=== PATIENT | male | born 1940 | race Caucasian/White ===

== ENCOUNTER 2019-04-17 14:45 | Emergency (ER) | payer MEDICARE ==
--- OUTSIDE RECORDS SUMMARY | 2019-04-17 14:48 | XMS REPORT ---
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) Problem Trouble swallowing R13.10 Active Problem Status post surgery Z98.890 Active Problem Chronic bronchitis, unspecified J42 Active chronic bronchitis type Problem Tear of left rotator cuff, M75.102 Active unspecified tear extent Problem COPD exacerbation J44.1 Active Assessment Chronic bronchitis, unspecified J42 Active chronic bronchitis type Assessment Allergic rhinitis, unspecified J30.9 Active seasonality, unspecified trigger Problem Chronic obstructive pulmonary J44.9 Active disease, unspecified COPD type Assessment Cardiac pacemaker Z95.0 Active Problem GERD without esophagitis K21.9 Active Problem Bilateral swelling of feet M79.89 Active Problem 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) Problem COPD with acute exacerbation J44.1 Active Problem Cardiac pacemaker Z95.0 Active Assessment Left shoulder pain, unspecified M25.512 Active chronicity Assessment Atrial fibrillation, chronic I48.2 Active Problem Colon polyp K63.5 Active Problem Basal cell carcinoma C44.91 Active Problem Atrial fibrillation, chronic I48.2 Active Problem Encounter for therapeutic drug Z51.81 Active level monitoring Medications Medication Code Code Instructions Start End Status Dosage System Date Date Nasacort AQ NDC 0 55 MCG/ACT Active 1 puff in Nasally Once a each day nostril Perforomist [facility] [id number] 20 MCG/2ML Active 2 ml Inhalation Twice a day Coumadin ND [id number] 5 MG Orally Active 1 tablet Once a day Levobunolol HCl [facility] [id number] 0.5 % Active 1 drop into Ophthalmic Once affected a day eye Levalbuterol HCl [facility] [id number] 1.25 MG/3ML Active 3 ml Inhalation every 8 hrs Spiriva Respimat [facility] [id number] 2.5 microgram Active 2 puffs Inhaled Once a day Pulmicort [facility] [id number] 0.25 MG/2ML Active 2 ml Inhalation Once a day Singulair [facility] [id number] 10 MG Orally Active 1 tablet in Once a day the evening Results No Known Results Summary Purpose eClinicalWorks Submission
[2019-04-17] MEDS ORDERED: NA CHLORIDE 0.9% 500 ML ONE (15:50)
[2019-04-17 16:04] LABS: Absolute Lymphocytes (CBC) 1.4 K/uL (0.7-4.9); Basophils % 0.5 % (0-1.3); Hematocrit 42.4 % (39.6-49.0); Lymphocytes % 26.6 % (15.3-44.8); MPV 9.6 fL (7.6-11.3)
[2019-04-17 16:20] LABS: Albumin 3.1 g/dL (3.4-5.0); Bilirubin Direct 0.1 mg/dL (0-0.2); Bilirubin Total 0.5 mg/dL (0.2-1.0); Potassium 3.7 mmol/L (3.5-5.1); Protein, Total 6.3 g/dL (6.4-8.2)
--- NOTE | 2019-04-17 17:08 | RAD REPORT ---
EXAM DESCRIPTION: CTAbdomen Pelvis W Contrast - 04/17/2019 4:54 pm CLINICAL HISTORY: Abdominal pain. ABD PAIN COMPARISON: Abdomen Pelvis W Contrast dated 06/07/2017 TECHNIQUE: Biphasic CT imaging of the abdomen and pelvis was performed with 100 ml non-ionic IV cont rast. All CT scans are performed using dose optimization technique as appropriate and may include automated exposure control or mA/KV adjustment according to patient size. FINDINGS: Postsurgical changes are present involving the right hemidiaphragm compatible with repair of the previously noted hernia in the region. The liver demonstrates no focal mass or biliary dilatation. Cholecystectomy clips. The spleen, pancre as, adrenal glands kidneys are within normal limits. No bowel obstruction, free air, free fluid or abscess. 20 mm area of epiploic appendagitis is seen in the right upper quadrant adjacent to the hepatic flexure. The appendix is not identified as a discre te structure, however, no secondary findings of appendicitis are identified. Sigmoid diverticulosis coli is present without diverticulitis. No evidence of significant lymphadenopathy. No suspicious bony findings. IMPRESSION: 20 mm area of epiploic appendagitis is noted in the right upper quadrant anteriorly. Sigmoid diverticulosis coli without diverticulitis. The appendix is not identified as a discrete structure, however, no secondary findings of appendicit is are identified.
[2019-04-17] MEDS ORDERED: ONDANSETRON 4 MG/2 ML VIAL ONE (17:49)
[2019-04-17] MEDS ORDERED: FENTANYL CITR 100 MCG/2 ML ONE (17:49)
--- NOTE | 2019-04-17 18:35 | ER ---
Nurse's Notes [facility] Name: Bharat Bauman Age: 78 yrs Sex: Male : 1940 Arrival Date: 04/17/2019 Time: 14:48 Bed 24 Private MD: Bennett Alexander Diagnosis: Appendagitis;Abdominal and pelvic pain Presentation: 04/17 15:22 Presenting complaint: Patient states: RLQ pain since Monday, sharp, hx of umbilical iw hernia repair with mesh in October by Dr. Perez, had one loose stool today, pain 01/31. Transition of care: patient was not received from another setting of care. Onset of symptoms was April 14, 2019. Risk Assessment: Do you want to hurt yourself or someone else? Patient reports no desire to harm self or others. Initial Sepsis Screen: Does the patient meet any 2 criteria? No. Patient's initial sepsis screen is negative. Does the patient have a suspected source of infection? No. Patient's initial sepsis screen is negative. Care prior to arrival: None. 15:22 Method Of Arrival: Ambulatory iw 15:22 Acuity: MELANIE 3 iw Historical: - Allergies: 15:26 Morphine; iw - Home Meds: 15:30 Warfarin Oral [Active]; Perforomist 20 mcg/2 mL inhalation nebu 2 mL 2 times per day iw [Active]; Spiriva with HandiHaler 18 mcg inhalation CpDv 1 cap once daily [Active]; montelukast oral oral [Active]; - PMHx: 15:26 Hypertension; Pacemaker; CVA; iw 15:30 Atrial Fib; COPD; iw - PSHx: 15:26 Cholecystectomy; Hernia repair; iw - Immunization history:: Adult Immunizations up to date. - Social history:: Smoking status: Patient/guardian denies using tobacco. - Ebola Screening: : Patient negative for fever greater than or equal to 101.5 degrees Fahrenheit, and additional compatible Ebola Virus Disease symptoms Patient denies exposure to infectious person Patient denies travel to an Ebola-affected area in the 21 days before illness onset No symptoms or risks identified at this time. Screenin:45 Abuse screen: Denies threats or abuse. Nutritional screening: No deficits noted. tr5 Tuberculosis screening: No symptoms or risk factors identified. Fall Risk None identified. Assessment: 15:45 General: Appears uncomfortable, Behavior is calm, cooperative, appropriate for age. tr5 General: Reports feeling ill for. Pain: Complains of pain in right upper quadrant and right lower quadrant. Neuro: Level of Consciousness is awake, alert, obeys commands, Oriented to person, place, time, Sports Physiologist are equal bilaterally Moves all extremities. Cardiovascular: Heart tones present Capillary refill < 3 seconds. Respiratory: Airway is patent Respiratory effort is even, unlabored, Respiratory pattern is regular, symmetrical. GI: Abdomen is flat, Bowel sounds present X 4 quads. Abd is soft and non tender Reports upper abdominal pain, cramping. GI: Reports lower abdominal pain. : No signs and/or symptoms were reported regarding the genitourinary system. EENT: No signs and/or symptoms were reported regarding the EENT system. Derm: No signs and/or symptoms reported regarding the dermatologic system. Musculoskeletal: No signs and/or symptoms reported regarding the musculoskeletal system. Vital Signs: 15:26 BP 122 / 68; Pulse 75; Resp 16; Temp 97.9; Pulse Ox 97% on R/A; Weight 77.11 kg; Height iw 5 ft. 11 in. (180.34 cm); Pain 10/10; 15:26 Body Mass Index 23.71 (77.11 kg, 180.34 cm) iw ED Course: 14:48 Patient arrived in ED. mr 14:48 Bennett Alexander DO is Private Physician. mr 14:54 Alexys Ibarra MD is Attending Physician. kdr 15:14 Chaka Kim, RN is Primary Nurse. tr5 15:24 Triage completed. iw 15:26 Arm band placed on. iw 15:45 Bed in low position. Call light in reach. Side rails up X 1. tr5 15:50 Initial lab(s) drawn, by me, sent to lab. Inserted saline lock: 20 gauge in right dh3 antecubital area, using aseptic technique. Blood collected. 15:58 Radiology exam delayed due to lab results not completed at this time. (BUN/Creatinine). vm2 16:55 CT Abd/Pelvis - IV Contrast Only In Process Unspecified. EDMS 18:32 Bennett Alexander DO is Referral Physician. kdr 19:03 No provider procedures requiring assistance completed. IV discontinued. tr5 Administered Medications: 15:50 Drug: NS 0.9% 500 ml Route: IV; Rate: bolus; Site: right antecubital; tr5 17:50 Drug: fentaNYL (PF) 50 mcg {Note: RASS:0.} Route: IVP; Site: right antecubital; tr5 19:02 Follow up: Response: Pain is decreased tr5 17:50 Drug: Zofran 4 mg Route: IVP; Site: right antecubital; tr5 19:03 Follow up: Response: Nausea is decreased tr5 19:02 Drug: Motrin 600 mg Route: PO; tr5 19:03 Follow up: Response: No adverse reaction tr5 Outcome: 18:34 Discharge ordered by . kdr 19:03 Discharged to home via wheelchair, with family. tr5 19:03 Condition: stable 19:03 Discharge instructions given to patient, family, friend, Instructed on discharge instructions, follow up and referral plans. medication usage, Demonstrated understanding of instructions, follow-up care, medications. 19:05 Patient left the ED. tr5 Signatures: Dispatcher [employer] EDMS Alexys Ibarra MD MD kdr Rivera, Mary mr Williams, Irene, RN RN [facility] Codi Corrales 3 Chaka Kim RN RN tr5
--- NOTE | 2019-04-17 18:35 | EDPHYS ---
Physician Documentation [facility] Name: Bharat Bauman Age: 78 yrs Sex: Male : 1940 Arrival Date: 04/17/2019 Time: 14:48 Bed 24 Private MD: Bennett Alexander ED Physician Alexys Ibarra HPI: 04/17 15:41 This 78 yrs old Male presents to ER via Ambulatory with complaints of kdr Abdominal Pain. 15:41 The patient presents with abdominal pain in the right upper quadrant, right lower kdr quadrant. Onset: The symptoms/episode began/occurred gradually, 4 day(s) ago. The symptoms do not radiate. Associated signs and symptoms: Pertinent positives: nausea, Pertinent negatives: chest pain, constipation, diarrhea, dysuria, fever, headache, hematuria, palpitations, shortness of breath, testicular pain, vomiting, vomiting blood. The symptoms are described as achy, constant, steady, vague, waxing/waning. Modifying factors: The symptoms are alleviated by remaining still, the symptoms are aggravated by breathing deeply, movement, touching the area, walking, Sitting up. Severity of pain: At its worst the pain was very mild in the emergency department the pain is unchanged. The patient has experienced similar episodes in the past. The patient has not recently seen a physician. Historical: - Allergies: 15:26 Morphine; iw - Home Meds: 15:30 Warfarin Oral [Active]; Perforomist 20 mcg/2 mL inhalation nebu 2 mL 2 times per day iw [Active]; Spiriva with HandiHaler 18 mcg inhalation CpDv 1 cap once daily [Active]; montelukast oral oral [Active]; - PMHx: 15:26 Hypertension; Pacemaker; CVA; iw 15:30 Atrial Fib; COPD; iw - PSHx: 15:26 Cholecystectomy; Hernia repair; iw - Immunization history:: Adult Immunizations up to date. - Social history:: Smoking status: Patient/guardian denies using tobacco. - Ebola Screening: : Patient negative for fever greater than or equal to 101.5 degrees Fahrenheit, and additional compatible Ebola Virus Disease symptoms Patient denies exposure to infectious person Patient denies travel to an Ebola-affected area in the 21 days before illness onset No symptoms or risks identified at this time. ROS: 15:41 Constitutional: Negative for fever, chills, and weight loss, Eyes: Negative for injury, kdr pain, redness, and discharge, ENT: Negative for injury, pain, and discharge, Neck: Negative for injury, pain, and swelling, Cardiovascular: Negative for chest pain, palpitations, and edema, Respiratory: Negative for shortness of breath, cough, wheezing, and pleuritic chest pain, Back: Negative for injury and pain, : Negative for injury, bleeding, discharge, and swelling, MS/Extremity: Negative for injury and deformity, Skin: Negative for injury, rash, and discoloration, Neuro: Negative for headache, weakness, numbness, tingling, and seizure activity. Psych: Negative for depression, anxiety, suicide ideation, homicidal ideation, and hallucinations, Allergy/Immunology: Negative for hives, rash, and allergies, Endocrine: Negative for neck swelling, polydipsia, polyuria, polyphagia, and marked weight changes, Hematologic/Lymphatic: Negative for swollen nodes, abnormal bleeding, and unusual bruising. 15:41 Abdomen/GI: Positive for abdominal pain, nausea, Negative for constipation, abdominal cramps, abdominal distension, anorexia, dysphagia, hematemesis, black/tarry stool, rectal pain, rectal bleeding, bowel incontinence, flatulence. Exam: 15:41 Constitutional: This is a well developed, well nourished patient who is awake, alert, kdr and in no acute distress. Head/Face: Normocephalic, atraumatic. Eyes: Pupils equal round and reactive to light, extra-ocular motions intact. Lids and lashes normal. Conjunctiva and sclera are non-icteric and not injected. Cornea within normal limits. Periorbital areas with no swelling, redness, or edema. Neck: Trachea midline, no thyromegaly or masses palpated, and no cervical lymphadenopathy. Supple, full range of motion without nuchal rigidity, or vertebral point tenderness. No Meningismus. Chest/axilla: Normal chest wall appearance and motion. Nontender with no deformity. No lesions are appreciated. Cardiovascular: Regular rate and rhythm with a normal S1 and S2. No gallops, murmurs, or rubs. Normal PMI, no JVD. No pulse deficits. Respiratory: Lungs have equal breath sounds bilaterally, clear to auscultation and percussion. No rales, rhonchi or wheezes noted. No increased work of breathing, no retractions or nasal flaring. Back: No spinal tenderness. No costovertebral tenderness. Full range of motion. Skin: Warm, dry with normal turgor. Normal color with no rashes, no lesions, and no evidence of cellulitis. MS/ Extremity: Pulses equal, no cyanosis. Neurovascular intact. Full, normal range of motion. Neuro: Awake and alert, GCS 15, oriented to person, place, time, and situation. Cranial nerves II-XII grossly intact. Motor strength 5/5 in all extremities. Sensory grossly intact. Cerebellar exam normal. Normal gait. Psych: Awake, alert, with orientation to person, place and time. Behavior, mood, and affect are within normal limits. 15:41 Abdomen/GI: Inspection: obese Bowel sounds: active, diminished, in all quadrants, Palpation: soft, mild abdominal tenderness, in the anterior aspect of right lateral abdomen, right upper quadrant and right lower quadrant, Indicators: McBurney's point is tender. Vital Signs: 15:26 BP 122 / 68; Pulse 75; Resp 16; Temp 97.9; Pulse Ox 97% on R/A; Weight 77.11 kg; Height iw 5 ft. 11 in. (180.34 cm); Pain 10/10; 15:26 Body Mass Index 23.71 (77.11 kg, 180.34 cm) iw MDM: 15:41 Data reviewed: vital signs, nurses notes, lab test result(s), radiologic studies. kdr 17:18 ED course: It is noted that the nursing charting indicates 10/10 pain however, on my kdr exam and interaction. His pain is mild at worst and when given the option for pain medication, he declined.. 18:34 Patient medically screened. [facility] 04/17 15:34 Order name: Basic Metabolic Panel; Complete Time: 17:13 [facility] 04/17 15:34 Order name: CBC with Diff; Complete Time: 17:13 [facility] 04/17 15:34 Order name: Creatinine for Radiology; Complete Time: 17:13 [facility] 04/17 15:34 Order name: Hepatic Function; Complete Time: 17:13 [facility] 04/17 15:34 Order name: Lipase; Complete Time: 17:13 [facility] 04/17 15:34 Order name: CT Abd/Pelvis - IV Contrast Only; Complete Time: 17:13 [facility] 04/17 15:34 Order name: IV Saline Lock; Complete Time: 15:48 kdr 04/17 15:34 Order name: Labs collected and sent; Complete Time: 15:48 kdr Administered Medications: 15:50 Drug: NS 0.9% 500 ml Route: IV; Rate: bolus; Site: right antecubital; tr5 17:50 Drug: fentaNYL (PF) 50 mcg {Note: RASS:0.} Route: IVP; Site: right antecubital; tr5 19:02 Follow up: Response: Pain is decreased tr5 17:50 Drug: Zofran 4 mg Route: IVP; Site: right antecubital; tr5 19:03 Follow up: Response: Nausea is decreased tr5 19:02 Drug: Motrin 600 mg Route: PO; tr5 19:03 Follow up: Response: No adverse reaction tr5 Disposition: 04/17/19 18:34 Discharged to Home. Impression: Appendagitis, Abdominal and pelvic pain. - Condition is Stable. - Prescriptions for Ibuprofen 600 mg Oral Tablet - take 1 tablet by ORAL route every 6 hours As needed take with food; 30 tablet. Zofran 4 mg Oral Tablet - take 1 tablet by ORAL route every 4-6 hours As needed; 16 tablet. Tramadol 50 mg Oral Tablet - take 1 tablet by ORAL route every 8 hours as needed; 18 tablet. - Medication Reconciliation Form, Thank You Letter, Prescription Opioid Use form. - Follow up: Bennett Alexander DO; When: 2 - 3 days; Reason: Wound Recheck, Recheck today's complaints, Continuance of care, Re-evaluation by your physician. - Problem is new. - Symptoms have improved. Signatures: Dispatcher [employer] EDMS Alexys Ibarra MD MD kdr Rubi Marte RN RN iw Chaka Kim RN RN tr5 Corrections: (The following items were deleted from the chart) 18:35 18:34 04/17/2019 18:34 Discharged to Home. Impression: Appendagitis. Condition is kdr Stable. Forms are Medication Reconciliation Form, Thank You Letter, Antibiotic Education, Prescription Opioid Use. Follow up: Bennett Alexander; When: 2 - 3 days; Reason: Wound Recheck, Recheck today's complaints, Continuance of care, Re-evaluation by your physician. Problem is new. Symptoms have improved. kdr 19:05 18:35 04/17/2019 18:34 Discharged to Home. Impression: Appendagitis; Abdominal and tr5 pelvic pain. Condition is Stable. Forms are Medication Reconciliation Form, Thank You Letter, Antibiotic Education, Prescription Opioid Use. Follow up: Bennett Alexander; When: 2 - 3 days; Reason: Wound Recheck, Recheck today's complaints, Continuance of care, Re-evaluation by your physician. Problem is new. Symptoms have improved. kdr
[2019-04-17] MEDS ORDERED: IBUPROFEN 200 MG TAB PO ONE (18:50)
[2019-04-17] MEDS ORDERED: IBUPROFEN 400 MG TAB ONE (18:51)
[2019-04-17 19:59] VITALS: BP 122/68; TEMP 97.9; O2SAT 97
== END 2019-04-17 19:05 | disposition home or self-care (01) ==
LOC: ER 14:45
DX: K63.89 Other specified diseases of intestine (principal); R10.2 Pelvic and perineal pain; I10 Essential (primary) hypertension; Z95.0 Presence of cardiac pacemaker; I63.9 Cerebral infarction, unspecified; J44.9 Chronic obstructive pulmonary disease, unspecified
CPT/HCPCS: 85025; 80048; 36415; 80076; 83690; 74177; 96375; 96374; 99284; Q9967; J3010; J7040; J2405

== ENCOUNTER 2020-01-18 14:36 | Emergency (ER) | payer OTHER ==
--- OUTSIDE RECORDS SUMMARY | 2020-01-18 14:38 | XMS REPORT | Continuity of Care Document ---
:1940 Author Organization [facility] t Address [address] [place] [address] Care Team Providers Name Role Phone Bryan Alexander DO Primary Care Physician Subha Nesbitt MA Attending Clinician Unavailable KYUNG Attending Clinician Unavailable Yue LONGORIA Attending Clinician Unavailable Bryan Alexander DO Attending Clinician Payers Payer Name Policy Type Policy Effective Date Expiration Date Sour ce Number HUMANA [id number] 2019 [place] MEDICAREHUMANA [facility] 00:00:00 Method ist GOLD PLUS [id number] /2020-PresentHMO Problems Condition Condition Condition Status Onset Resolution Last Treating Co mments Source Name Details Category Date Date Treatment Clinician Date Chronic Chronic Disease Active [place] atrial atrial 10-28 Methodi fibrillati fibrillati 00:00: st on on 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 [facility] disease disease 00:00: st 00 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 0-01 Me thodi n n 00:00: st 00 S/P S/P Disease Active [place] Laparoscop Laparoscop 2-15 Me thodi ic ic 00:00: st reduction reduction 00 and repair and repair of of Morgagni Morgagni hernia hernia Acidosis, Acidosis, Disease Active [facility] st[facility] metabolic, metabolic, 2-15 Me thodi with with 00:00: st respirator respirator 00 y acidosis y acidosis Acute Acute Disease Active [facility] pulmonary pulmonary 2-15 Meth yajaira insufficie insufficie 00:00: st ncy ncy 00 Subcutaneo Subcutaneo Disease Active H patti us us 2-15 [facility] emphysema emphysema 00:00: st after after 00 procedure procedure Hyperglyce Hyperglyce Disease Active H patti fred fred 2-15 Methodi 00:00: st 00 Postoperat Postoperat Disease Active H patti jd anemia jd anemia 2-15 Me thodi due to due to 00:00: st acute acute 00 blood loss blood loss Thrombocyt Thrombocyt Disease [facility] open[facility] due openia due 2-15 Me thodi to blood to blood 00:00: st loss loss 00 Atrial Atrial Disease Active [place] fibrillati fibrillati 2-15 Me thodi on on 00:00: st 00 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 Meth yajaira 00:00: automatic st 00 ally from request for surgery [id number] 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) 00:00: st 00 Basal cell Basal cell Problem Active [facility] carcinoma carcinoma [facility] Cardiac Cardiac Problem Active [facility] pacemaker pacemaker [facility] Hearing Hearing Problem Active [facility] loss loss [facility] Bilateral Bilateral Problem Active [facility] swelling swelling [facility] Status Status Problem Active [facility] post post [facility] - surgery surgery [facility] ent Clinics GERD GERD Problem Active [facility] without without [facility] - esophagiti esophagiti Me moria s s l [facility] Chronic Chronic Problem Active [facility] bronchitis bronchitis Radha kes - , , Memoria unspecifie unspecifie l d chronic d chronic Outp ati bronchitis bronchitis en t type type Clinics Trouble Trouble Problem Active [facility] swallowing swallowing Radha kes - Memoria l Outpati ent Clinics Allergic Allergic Problem Active [facility] rhinitis, rhinitis, Luke s - unspecifie unspecifie Me moria d d l seasonalit seasonalit Ou tpati y, y, ent unspecifie unspecifie Cl inics d trigger d trigger Atrial Atrial Problem Active [facility] fibrillati fibrillati Radha kes - on, on, Memoria chronic chronic l Outpati ent Clinics Encounter Encounter Problem Active [facility] for for [facility] - therapeuti therapeuti Me moria c drug c drug l level level Outpati monitoring monitoring en t Clinics Colon Colon Problem Active [facility] polyp polyp [facility] COPD COPD Problem Active [facility] exacerbati exacerbati Radha kes - on on Memoria l Outpati ent Clinics Right-side Right-side Diagnosis Active [facility] d d [facility] - cerebrovas cerebrovas Me moria cular cular l accident accident Outpat i (CVA) (CVA) ent Clinics Tear of Tear of Problem Active [facility] left left [facility] - rotator rotator Memoria cuff, cuff, l unspecifie unspecifie Ou tpati d tear d tear ent extent extent Clinics Chronic Chronic Problem Active [facility] obstructiv obstructiv Radha kes - e e Memoria pulmonary pulmonary l disease, disease, Outpat i unspecifie unspecifie en t d COPD d COPD Clinics type type Diverticul Diverticul Problem Active [facility] osis of osis of [facility]ukes - sigmoid sigmoid Memoria colon colon l Outpati ent Clinics Allergies, Adverse Reactions, Alerts Allergy Allergy Status Severity Reaction(s) Onset Inactive Treating Comm ents Source Name Type Date Date Clinician Morphine Propensi Active Other (See Change Brooks vivas ty to Comments) 04-28 his Methodi adverse 00:00: personali st reaction 00 ty s to drug Morphine Adverse Active Info Not [facility] Sulfate Reaction Available [facility] Family History Family Member Diagnosis Comments Start Date Stop Date Source Natural mother Heart attack Rodolfo Mcduffie Natural sister Liver cancer Rodolfo Mcduffie Social History Social Habit Start Date Stop Date Quantity Comments Source History of tobacco Current smoker Brooks Mcduffie use Sex Assigned At [facility] ethodist Cigarettes smoked 2018-01-25 2018-01-25 Rodolfo Mcduffie current (pack per 00:00:00 00:00:00 day) - Reported Cigarette 2018-01-25 2018-01-25 Rodolfo Pozo ist pack-years 00:00:00 00:00:00 Tobacco use and 2018-01-25 2018-01-25 Former user Rodolfo Mcduffie exposure 00:00:00 00:00:00 Alcohol intake 2018-01-25 2018-01-25 Current Rodolfo Jesus thodist 00:00:00 00:00:00 non-drinker of alcohol (finding) Smoking Status Start Date Stop Date Source Former smoker 2018-01-25 00:00:00 2018-01-25 00:00:00 Rodolfo Mcduffie Medications Ordered Filled Start Stop Current Ordering Indication Dosage Frequency Signature Comments Components Source Medication Medication Date Date Medication? Clinician (SIG) Name Name formoterol 2020-0 Yes 20ug Q.5D Take 20 [place] fumarate 7-07 mcg by [facility] (PERFOROMIS 11:08: nebulizati st T) 20 mcg/2 55 on 2 (two) mL times a nebulizer day. solution montelukast 2020-0 Yes 10mg QD Take 10 mg [facility] (SINGULAIR) 7-07 by mouth Meth yajaira 10 mg 11:08: nightly. st tablet 55 levalbutero 2020-0 Yes 1{puff} Q4H Inhale 1-2 [facility] l (XOPENEX 7-07 puffs Methodi HFA) 45 11:08: every 4 st mcg/actuati 55 (four) on inhaler hours as needed for wheezing. budesonide 2020-0 Yes .5mg Q.5D Take 0.5 [facility] (PULMICORT) 7-07 mg by Methodi 0.5 mg/2 mL 11:08: nebulizati st nebulizer 55 on 2 (two) solution times a day. warfarin 2020-0 Yes 5mg QD Take 5 mg [place] (COUMADIN) 7-07 by mouth Metho di 5 MG tablet 11:08: daily. st 55 Take 1 tablet (5mg) by mouth daily for 30 days. hydrocortis 2018-0 2020- No [id number] Apply [place] one 1 % 2-20 07-07 [id number] topically Methodi cream 00:00: 00:00 3D 3 (three) st 00 :00 times a day. Apply to back and affected areas SPIRIVA 2018-0 Yes 2{puff} QD Inhale 2 [facility] RESPIMAT 2-07 puffs Methodi 2.5 00:00: daily. st mcg/actuati 00 on mist gatifloxaci 2020- No 1[drp] Q.5D Administer Rodolfo boyle (ZYMAXID) 05-25 1 drop to Me thodi 0.5 % drops 00:00: 00:[address] 00 :00 eye 2 (two) times a day. Nasacort AQ Nasacort AQ Yes Bennett [address] [facility] each [facility] - nostril [facility] Spiriva Spiriva Yes Bennett [address] Respimat Respimat [facility] Perforomist Perforomist Yes Bennett [address] [facility] Coumadin Coumadin Yes Bennett [address] [facility] Pulmicort Pulmicort Yes Bennett [address] Singulair Singulair Yes Bennett [address] [facility] Alexander in the [facility] - evening [facility] Levalbutero Levalbutero Yes Bennett [address] l HCl l HCl [facility] Levobunolol Levobunolol Yes Bennett [address] HCl HCl Alexander into [facility] - affected [facility]oria eye l [facility] Vital Signs Vital Name Observation Time Observation Value Comments Source Body height 2019-10-29 11:08:00 180.3 cm Rodolfo Mcduffie Body weight 2019-10-29 11:08:00 74.844 kg Rodolfo Mcduffie BMI 2019-10-29 11:08:00 23.01 kg/m2 Rodolfo Mcduffie Procedures Procedure Date / Time Performed Performing Clinician Sour e PROTHROMBIN TIME WITH 2020-01-10 00:00:00 Provider, Historical Tim Mcduffie INR PROTHROMBIN TIME WITH 2019-12-19 00:00:00 Provider, Historical Tim Mcduffie INR PROTHROMBIN TIME WITH 2019-12-03 00:00:00 Provider, Historical Tim Mcduffie INR US CAROTID DUPLEX 2019-11-19 13:50:00 Marilyn Mejias Ma thodist BILATERAL CV STRESS TEST NUCLEAR 2019-11-07 14:48:52 Marilyn Mejias on [facility] CARDIO NM MYOCARDIAL PERFUSION 2019-11-07 14:48:52 Marilyn Mejias [facility] REST STRESS 1 DAY TTE COMPLETE, W 2019-10-31 11:08:44 Marilyn Mejias odken CONTRAST, W DOPPLER ([id number]) ECG 12-LEAD 2019-10-29 10:06:50 Marilyn Mejias Meth odist Plan of Care Planned Activity Planned Date Details Comments Source Future Scheduled 2019-11-23 INFLUENZA VACCINE [place] [facility] 00:00:00 [code = INFLUENZA VACCINE] Future Scheduled 1990 SHINGLES VACCINES [place] [facility] 00:00:00 (#1) [code = SHINGLES VACCINES (#1)] Encounters Start End Encounter Admission Attending Care Care Encounter Source Date/Time Date/Time Type Type Clinicians Facility Department ID 2019-11-19 2019-11-19 Outpatient KYUNG [facility] [id number] [place] 00:00:00 00:00:00 MARILYN [address] 2019-11-05 2019-11-05 [facility] [id number] [place] 00:00:00 00:00:00 MARILYN [address] 2019-10-31 2019-10-31 [facility] [id number] [place] 00:00:00 00:00:00 MARILYN [address] 2019-10-29 2019-10-29 [facility] [id number] [place] 00:00:00 00:00:00 MARILYN [address] 2019-10-07 2019-10-07 [facility] [id number] [address] 13:15:00 13:15:00 t [place] [facility] Medicine l Medicine Outpati ent Clinics 2019-07-24 2019-07-24 [facility] [id number] [address] 10:45:00 10:45:00 t [place] [facility] Medicine l Medicine Outpati ent Clinics 2019-07-17 2019-07-17 [facility] [id number] 16:30:00 16:30:00 t [place] [facility] Medicine Outpati ent Clinics 2019-06-17 2019-06-17 [facility] [id number] 09:00:00 09:00:00 [place] [employer] - [facility] Medicine Outpati ent Clinics 2019-06-03 2019-06-03 [facility] [id number] 10:47:00 10:47:00 t [place] [employer] - Drive [facility] Medicine Outpati ent Clinics 2019-05-17 2019-05-17 [facility] [id number] 12:43:00 12:43:00 t [place] [employer] - Drive [facility] Medicine Outpati ent Clinics 2019-05-03 2019-05-03 [facility] [id number] 13:11:00 13:11:00 t [employer] s - Drive [facility] Medicine Outpati ent Clinics 2019-04-25 2019-04-25 [facility] [id number] 08:45:00 08:45:00 t [place] [email or web address] [facility] Medicine Outpati ent Clinics 2019-01-22 2019-01-22 [facility] [id number] 10:45:00 10:45:00 t [place] [employer] - [facility] Medicine Outpati ent Clinics 2019-01-16 2019-01-16 [facility] [id number] 11:54:00 11:54:00 [place] [employer] [address] [facility] Medicine Outpati ent Clinics 2018-11-05 2018-11-05 [facility] [id number] 10:30:00 10:30:00 t [place] [employer] - Drive [facility] Medicine Outpati ent Clinics 2018-06-18 2018-06-18 [facility] [id number] 10:30:00 10:30:00 t Bone Bone and [facility] - and [facility] ent Clinics 2018-06-01 2018-06-01 [facility] [id number] 09:30:00 09:30:[address] Luke s - Drive [facility] Medicine l Medicine Outpati ent Clinics 2018-05-21 2018-05-21 [facility] [id number] 10:32:00 10:32:[address] Luke s - Drive [facility] Medicine l Medicine Outpati ent Clinics 2018-04-26 2018-04-26 [facility] [id number] 16:35:00 16:35:[address] Luke s - Drive [facility] Medicine l Medicine Outpati ent Clinics 2018-01-29 2018-01-29 [facility] [id number] 09:45:00 09:45:[address] Luke s - Drive [facility] Medicine l Medicine Outpati ent Clinics 2017-12-22 2017-12-22 [facility] [id number] 13:23:00 13:23:[address] Luke s - Drive [facility] Medicine l Medicine Outpati ent Clinics 2017-12-14 2017-12-14 [facility] [id number] 16:33:00 16:33:[address] Luke s - Drive [facility] Medicine l Medicine Outpati ent Clinics 2017-12-08 2017-12-08 [facility] [id number] 11:04:00 11:04:[address] Luke s - Drive [facility] Medicine l Medicine Outpati ent Clinics 2017-12-04 2017-12-04 [facility] [id number] 11:45:00 11:45:[address] Luke s - Drive [facility] Medicine l Medicine Outpati ent Clinics 2017-10-23 2017-10-23 [facility] [id number] 13:00:00 13:00:[address] Luke s - Drive [facility] Medicine l Medicine Outpati ent Clinics 2017-10-11 2017-10-11 [facility] [id number] 08:51:00 08:51:[address] Luke s - Drive [facility] Medicine l Medicine Outpati ent Clinics 2017-09-19 2017-09-19 [facility] [id number] 08:30:00 08:30:00 [place] [facility] ent [facility] 2017-08-15 2017-08-15 [facility] [id number] 10:15:00 10:15:[address] Luke s - Drive [facility] Results Test Description Test Time Test Comments Results Result Comments Source Prothrombin time with INR 2020-01-10 00:00:00 Test Item Value Reference Range Interpretation Comme nts INR (test code = 37166-1) 2.90 [place] [facility] 12 [id number] 21:30:27 Test Item Value Reference Range Interpretation Comments Ventricular rate (test 76 code = 253) Atrial rate (test code 72 = 255) QRSD interval (test 86 code = 260) QT interval (test code 368 = 264) QTC interval (test 414 code = 265) QRS axis 1 (test code 64 = 268) T wave axis (test code -27 = 270) EKG impression (test Atrial-paced rhythm code = 273) with premature ventricular or aberrantly conducted complexes--Nonspecific T wave abnormality-Abnormal ECG-In automated comparison with ECG of 23-JAN-2018 05:10,-Current undetermined rhythm precludes rhythm comparison, needs review-Questionable change in QRS axis- [place] [facility]- XR FLUOROSCOPY 0-60 [id number] 12:38:00 FAX: Saroj Francois MD [phone] [place]: St: REG Name: JUSTEN PADGETT [facility] : 1940 Age/S: 79/M [address] Unit#: [id number] Loc: E.CORNELIO [place], [place]: [place] [id number] Acct: [id number] Dis Date: Status: REG CLI PHONE #: [phone] Exam Date: 07/09/2019 1141 FAX #: [phone] Reason: SOB,COPD,HYPOXEMIA........ EXAMS: CPT CODE: [id number] XR FLUOROSCOPY 0-60 MIN 45554 REASON FOR EXAM: Shortness of breath, diaphragm assessment. Fluoroscopy of the diaphragm, sniff test Fluoroscopy was used for 0.6 minutes, producing a total dose of 23.61 mGy. Routine breathing was performed initially with fluoroscopic observation. The right diaphragm shows moderate excursion. The leftdiaphragm does not show significant movement. No Paradoxical contraction seen, either. The study from is assessed by the sniff maneuver. Good response for the right diaphragm seen. There is response also noted on the left, slightly blunted in degree.IMPRESSION: Very little left diaphragm excursion seen. The right diaphragm with contractionnoted but decreased due to COPD changes. Location: U 19 at 1238 Reported and signed by: Mason Snyder M.D CC: Saroj Olivares MD Technologist: PATRICK ROSADO Trnscrd Date/Time/By: 07/09/2019 (0726) : By: [email or web address] PAGE 1 Signed Report FAX: Saroj Francois MD [phone] [place]: St: REG -- Name: JUSTEN PADGETT [facility] : 1940 Age/S: 79/M [address] [facility] Unit #: [id number] Loc: [place], [place]: [place] [id number] Acct: [id number] Dis Date: Status: REG CLI PHONE #: [phone] Exam Date: 07/09/2019 1141 FAX #: [phone] Reason: SOB,COPD,HYPOXEMIA........ EXAMS: CPT CODE: [id number] XR FLUOROSCOPY 0-60 MIN 89305 <Continued> Orig Print D/T: S: 07/09/2019 (0166) PAGE 2 Signed Report- XR CHEST 2 [id number] 11:37:00 FAX: Saroj Francois MD [phone] [place]: St: REG Name: JUSTEN PADGETT [facility] : 1940 Age/S: 79/M [address] [facility] Unit#: [id number] Loc: [place], [place]: [place] [id number] Acct: [id number] Dis Date: Status: REG CLI PHONE #: [phone] Exam Date: 07/09/2019 1141 FAX #: [phone] Reason: SOB,COPD,HYPOXEMIA...... EXAMS: CPT CODE: [id number] XR CHEST 2 V 03256 Chest Radiographs, 2 views. Location: Clinical Indication: 79-year-old with dyspnea, COPD, and hypoxemia Comparison: None Findings: PA and lateral radiographs of the chest were obtained. Heart size is normal. There is a smoothly marginated masslike structure of the right cardiophrenic angle,measuring approximately 4.5 cm in craniocaudal dimension. There is questionable nodule of the left lower lobe, overlapping 2 ribs. 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 No pleural effusion or pneumothorax. No acute osseous abnormality. Prior sternotomy. A left subclavian approach multi lead pacer is present. Impression: 1. 4.5 cm masslike opacity of the right cardiophrenic angle. There is questionable poorly defined nodule of the left lower lobe, overlapping 2 ribs. Further characterization with contrast-enhanced CT is recommended. 2. 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 3. No acute pneumonic infiltrate. at 1137 Reported and signed by: Mason Nichole M.D. CC: Saroj Olivares MD Technologist: PATRICK ROSADO Trnarrd Date/Time/By: 07/09/2019(0092) : By: [email or web address] PAGE 1 Signed Report FAX: Saroj Francois MD [phone] [place]: St: REG Name: JUSTEN PADGETT [facility] : 1940 Age/S: 79/M [address] [facility] Unit #: [id number] Loc: [place], [place]: [place] [id number] Acct: [id number] Dis Date: Status: REG CLI PHONE #: [phone] Exam Date: 07/09/2019 1141 FAX #: [phone] Reason: SOB,COPD,HYPOXEMIA...... EXAMS: CPT CODE: [id number] XR CHEST 2 V 46904 <Continued> Orig Print D/T: S: 07/09/2019 (9774) PAGE 2 Signed Report
--- OUTSIDE RECORDS SUMMARY | 2020-01-18 14:38 | XMS REPORT | Clinical Summary ---
:1940 Author Organization [facility] Address [address] [place] [address] Care Team Providers Name Role Phone Bryan Alexander Primary Care Provider Allergies Active Allergy Reactions Severity Noted Date Comments Morphine Other (See Comments) High 04/28/2016 Change his personality Medications Medication Sig Dispensed Refills Start Date End Date Status formoterol fumarate Take 20 mcg by 0 Active (PERFOROMIST) 20 nebulization 2 mcg/2 mL nebulizer (two) times a solution day. montelukast Take 10 mg by 0 Acti ve (SINGULAIR) 10 mg mouth nightly. tablet levalbuterol Inhale 1-2 puffs 0 Active (XOPENEX HFA) 45 every 4 (four) mcg/actuation hours as needed inhaler for wheezing. budesonide Take 0.5 mg by 0 Acti ve (PULMICORT) 0.5 nebulization 2 mg/2 mL nebulizer (two) times a solution day. SPIRIVA RESPIMAT Inhale 2 puffs 3 05/31/2017 Active 2.5 mcg/actuation daily. mist warfarin (COUMADIN) Take 5 mg by 0 Active 5 MG tablet mouth daily. Take 1 tablet (5mg) by mouth daily for 30 days. gatifloxacin Administer 1 drop 0 05/25/2017 10/29/19 Discontinued (ZYMAXID) 0.5 % to the right eye 20 drops 2 (two) times a day. hydrocortisone 1 % Apply topically 3 20 g 0 06/13/2017 Discontinued cream (three) times a 20 day. 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 Overview: Added automatically from request for ronna neri [id number] SSS (sick sinus syndrome) 04/28/2016 Encounters Date Type Specialty Care Team Description 01/17/2020 Telephone Cardiology Jazlyn Nesbitt Anticoagula tion NE 01/17/2020 Orders Only Cardiology Jazlyn Nesbitt Chronic a-f ib NE 01/10/2020 Orders Only Cardiology Jazlyn Nesbitt Chronic a-f ib NE 01/03/2020 Orders Only Cardiology Jazlyn Nesbitt, Chronic a-f ib NE 12/27/2019 Orders Only Cardiology Jazlyn Nesbitt, Chronic a-f ib NE 12/20/2019 Telephone Cardiology Jazlyn Nesbitt Anticoagula tion NE 12/20/2019 Orders Only Cardiology Jazlyn Nesbitt, Chronic a-f ib NE 12/13/2019 Orders Only Cardiology Jazlyn Nesbitt, Chronic a-f ib NE 12/11/2019 Telephone Cardiology Jazlyn Nesbitt ANTICOAGULA TION NE 11/19/2019 Travel 11/05/2019 Travel 10/31/2019 Travel 10/30/2019 Telephone Cardiology Sunny Turner MA Telephone [place] unter (Pacemaker chec k) 10/30/2019 Orders Only Cardiology Sunny Turner MA Mitral valve d isease (Primary Dx); Atrial fibrilla tion, unspecified type (HCC); AICD lead malfu nction 10/29/2019 Office Visit Cardiology Marilyn Tracey, Mitral valv e disease (Primary Dx); Chronic atrial fibrillation; Atrial fibrilla tion, unspecified type (HCC) 10/29/2019 Travel 10/14/2019 Transcribe Orders Cardiology Bennett Alexander Chronic a trial fibrillation (Primary Dx); DO Bryan Presence of car diac pacemaker 10/14/2019 Travel after 01/17/2019 Family History Medical History Relation Name Comments Heart attack Mother Liver cancer Sister Relation Name Status Comments Mother Sister Social History Tobacco Use Types Packs/Day Years Used Date Former Smoker Cigars, Cigarettes 1 10 Quit: 19 75 Smokeless Tobacco: Former User Chew Alcohol Use Drinks/Week oz/Week Comments No Sex Assigned at Date Recorded Not on file Last Filed Vital Signs Vital Sign Reading Time Taken Comments Blood Pressure - - Pulse - - Temperature - - Respiratory Rate - - Oxygen Saturation - - Inhaled Oxygen Concentration - - Weight 74.8 kg (165 lb) 10/29/2019 11:08 AM CDT Height 180.3 cm (5' 11") 10/29/2019 11:08 AM CDT Body Mass Index 23.01 10/29/2019 11:08 AM CDT Plan of Treatment Health Maintenance Due Date Last Done Comments SHINGLES VACCINES (#1) 1990 INFLUENZA VACCINE 11/23/2019 65+ PNEUMOCOCCAL VACCINE Completed 07/07/2013 Implants Implanted Type Area Power Electronics Research Engineer Device Shelf Model / Identifier Expiration Serial / Date Lot Pacemaker Concession Stand Attendant Dr Bermudez 2chmbr W/ Is-1 Uni/ Bi Conn Advisa - [id number] - [id number] Cardiac Pacemaker N/A: MED[employer] 11/04/2017 [id number] / Implanted: Qty: 1 on 06/16/2016 by Aaron Restrepo MD at [facility] Generators N/A CARDIAC RHYTHM [id number] / DISEASE MGMT [id number] 13H Envelope Pcemkr Antbactl Fully Resorb Aigisrxr - [id number] Cardiac Pacing N/A: TYRX PHARMA [id number] / Implanted: 06/16/2016 at [facility] (Quantity not on file) Leads or N/A INC / Electrodes or Accessories Lead, Pacemaker Atrial And Ventricular 5 8 Centimeter Capsure Fix Novus System - [id number] - [id number] Cardiac Pacing N/A: MEDTR[employer] CRM 10/23 [id number] / Implanted: Qty: 1 on 01/22/2018 by Aaron Restrepo MD at [facility] Leads or N/A [place], INC. [id number] / Electrodes or [id number] Accessories Pocket Device Cangaroo Ecm 6.5cm X 6.9cm Med - [id number] Cardiovascu lar N/A: 03/28/2020 [id number] / Implanted: 01/22/2018 at [facility] (Quantity not on file) Implants N/A / [id number] Mesh Hrnia Rpr Dualmesh Plus [id number] 1mm Ptfe - [id number] Vascu lar Graft N/A: W L GORE 06/22/2019 [id number] / Implanted: 06/07/2017 at [facility] (Quantity not on file) N/A [id number] / [id number] Pacemaker Procedures Procedure Name Priority Date/Time Associated Diagnosis Comme nts PROTHROMBIN TIME Routine 01/10/2020 Results for this WITH INR procedure are i n the results section. PROTHROMBIN TIME Routine 12/19/2019 Results for this WITH INR procedure are i n the results section. PROTHROMBIN TIME Routine 12/03/2019 Results for this WITH INR procedure are i n the results section. US CAROTID DUPLEX Routine 11/19/2019 1:50 Chronic atrial Resu lts for this BILATERAL PM CDT fibrillation procedure are in Mitral valve dis ease the results Atrial fibrillation, section . unspecified type (HCC) NM MYOCARDIAL Routine 11/07/2019 2:48 Chronic atrial Results for this PERFUSION REST PM CDT fibrillation procedure are in STRESS 1 DAY Mitral valve dis ease the results Atrial fibrillation, section . unspecified type (HCC) CV STRESS TEST Routine 11/07/2019 2:48 Chronic atrial Results for this NUCLEAR CARDIO PM CDT fibrillation procedure are in Mitral valve dis ease the results Atrial fibrillation, section . unspecified type (HCC) TTE COMPLETE, W Routine 10/31/2019 11:08 Chronic atrial Result s for this CONTRAST, W DOPPLER AM CDT fibrillation procedure are in (C8929) Mitral valve dis ease the results Atrial fibrillation, section . unspecified type (HCC) ECG 12-LEAD Routine 10/29/2019 10:06 Chronic atrial Results f or this AM CDT fibrillation procedure are i n the results section. after 01/17/2019 Results Prothrombin time with INR (01/10/2020)Only the most recent of3 resultswithin the time period is included. Pathologist Sig nature INR 2.90 EXTERNAL LAB NON-INTERFACED Specimen Blood Performing Organization Address City/State/ZIP Code Phon e Number EXTERNAL LAB NON-INTERFACED Us carotid duplex (11/19/2019 1:50 PM CDT) Specimen Narrative Performed At [facility] Carotid Ann ry Ultrasound Report Pat.Name: JUSTEN BAUMAN Pat.ID: [id number] .Date: 11/19/2019 Refer.MD: MARILYN TRACEY MD Exam Time: 1:06:00 PM Study Type:C arotid Age: 1 1940,79Y Sex: MALE Sonogrphr: Juju Alvarado RVT Pat. Stat.:[facility] V ol: SD, CPT - 4: 42746 Echo Manuela nt ID:[id number] Order ID: [id number] Reason for Study:Mitral valve disease, A Fib Race: C SUMMARY: CAROTID ARTERY SCAN RIGHT: There is smooth intimal lining in the common carotid artery. There is hard and calcified plaque not ed in the bulb. Colorflow is undisturbed. There is antegrade flow in the vertebral artery. LEFT: There is smooth intimal li deja in the common carotid, internal and external carotid artery. Co lorflow is normal. There is antegrade flow in the vertebral artery. PRELIMINARY FINDINGS 1. Non stenotic hard plaque in the rig ht carotid bulb. 2. Normal left carotid duplex exam. 3. There is antegrade flow in the bila teral vertebral artery. PHYSICIAN INTERPRETATION Bilateral carotid duplex examination dem onstrated atherosclerotic plaques in the right carotid bulb. Less than 50% stenosis in the right bulb and internal carotid artery. Normal left carotid duplex exam. Both vertebral arteries are antegrade. FINDINGS: Carotid Findings: Right Left Verteb.Flw Antegrade Antegrade Subclavian Triphasic Triphasic MEASUREMENTS: DOPPLER Right CCA Dist CCA Dist PSV 66.9 cm/s CCA Dist EDV 17.1 cm/s Right CCA Mid CCA Mid PSV 82.8 cm/s CCA Mid EDV 15.3 cm/s Right CCA Prox CCA Prox PSV 78.7 cm/s CCA Prox EDV 12 cm/s Right Bulb Bulb PSV 66.9 cm/s Bulb EDV 13.7 cm/s Right ECA Prox ECA Prox PSV 68.6 cm/s ECA Prox EDV 5.14 cm/s Right ICA Dist ICA Dist PSV 74.4 cm/s ICA Dist EDV 27.3 cm/s Right ICA Mid ICA Mid PSV 44.8 cm/s ICA Mid EDV 13.1 cm/s Right ICA Prox ICA Prox PSV 65.1 cm/s ICA Prox EDV 8.57 cm/s Right Vertebral Vertebral PSV 32.7 cm/s Vertebral EDV 8.56 cm/s Right SCA Prox SCA Prox PSV 97.6 cm/s SCA Prox EDV 0 cm/s Left CCA Dist CCA Dist PSV 68.3 cm/s CCA Dist EDV 15.3 cm/s Left CCA Prox CCA Prox PSV 114 cm/s CCA Prox EDV 16.7 cm/s Left Bulb Bulb PSV 78.1 cm/s Bulb EDV 15.3 cm/s Left ECA ECA PSV 79.5 cm/s ECA EDV 5.58 cm/s Left ICA Dist ICA Dist PSV 83.5 cm/s ICA Dist EDV 26.2 cm/s Left ICA Mid ICA Mid PSV 69.7 cm/s ICA Mid EDV 13.9 cm/s Left ICA Prox ICA Prox PSV 53 cm/s ICA Prox EDV 6.97 cm/s Left Vertebral Vertebral PSV 43.6 cm/s Vertebral EDV 12.5 cm/s Left SCA Prox SCA Prox PSV 90.4 cm/s SCA Prox EDV 0 cm/s Left CCA Mid CCA Mid PSV 70 cm/s CCA Mid EDV 14 cm/s Left ECA Prox ECA Prox PSV 79 cm/s ECA Prox EDV 6 cm/s Right ICA/CCA Ratio ICA/CCA PSV 0.786 Left ICA/CCA Ratio ICA/CCA PSV 0.757 Signed 11/20/2019 06:46 AM Marilyn Tracey MD Procedure Note Interface, Radiology Results In - 2019 6:47 AM CDT [facility] Carotid Artery Ultras ound Report Pat.Name: JUSTEN BAUMAN Pat.I D: [id number] St.Date: 11/19/2019 Refer .MD: MARILYN TRACEY MD Exam Time: 1:06:00 PM Study Type:Carotid Age: 1 1940,79Y Sex: MALE Sonogrphr: Juju Alvarado RVT Pat. Stat.:Outpatient Room: [facility] Vol: SD, CPT - 4: 77143 Echo Event ID:[id number] Order ID: [id number] Reason for Study:Mitral valve disease, A Fib Race: C SUMMARY: CAROTID ARTERY SCAN RIGHT: There is smooth intimal lining i n the common carotid artery. There is hard and calcified plaque note d in the bulb. Colorflow is undisturbed. There is antegrade flow i n the vertebral artery. LEFT: There is smooth intimal linin g in the common carotid, internal and external carotid artery. Co lorflow is normal. There is antegrade flow in the vertebral artery. PRELIMINARY FINDINGS 1. Non stenotic hard plaque in the righ t carotid bulb. 2. Normal left carotid duplex exam. 3. There is antegrade flow in the bilat eral vertebral artery. PHYSICIAN INTERPRETATION Bilateral carotid duplex examination dem onstrated atherosclerotic plaques in the right carotid bulb. Less than 50% stenosis in the right bulb and internal carotid artery. Normal left carotid duplex exam. Both vertebral arteries are antegrade. FINDINGS: Carotid Findings: Right Left Verteb.Flw Antegrade Antegrade Subclavian Triphasic Triphasic MEASUREMENTS: DOPPLER Right CCA Dist CCA Dist PSV 66.9 cm/s CCA Dist EDV 17.1 cm/s Right CCA Mid CCA Mid PSV 82.8 cm/s CCA Mid EDV 15.3 cm/s Right CCA Prox CCA Prox PSV 78.7 cm/s CCA Prox EDV 12 cm/s Right Bulb Bulb PSV 66.9 cm/s Bulb EDV 13.7 cm/s Right ECA Prox ECA Prox PSV 68.6 cm/s ECA Prox EDV 5.14 cm/s Right ICA Dist ICA Dist PSV 74.4 cm/s ICA Dist EDV 27.3 cm/s Right ICA Mid ICA Mid PSV 44.8 cm/s ICA Mid EDV 13.1 cm/s Right ICA Prox ICA Prox PSV 65.1 cm/s ICA Prox EDV 8.57 cm/s Right Vertebral Vertebral PSV 32.7 cm/s Vert ebral EDV 8.56 cm/s Right SCA Prox SCA Prox PSV 97.6 cm/s SCA Prox EDV 0 cm/s Left CCA Dist CCA Dist PSV 68.3 cm/s CCA Dist EDV 15.3 cm/s Left CCA Prox CCA Prox PSV 114 cm/s CCA Prox EDV 16.7 cm/s Left Bulb Bulb PSV 78.1 cm/s Bulb EDV 15.3 cm/s Left ECA ECA PSV 79.5 cm/s ECA EDV 5.58 cm/s Left ICA Dist ICA Dist PSV 83.5 cm/s ICA Dist EDV 26.2 cm/s Left ICA Mid ICA Mid PSV 69.7 cm/s ICA Mid EDV 13.9 cm/s Left ICA Prox ICA Prox PSV 53 cm/s ICA Prox EDV 6.97 cm/s Left Vertebral Vertebral PSV 43.6 cm/s Vert ebral EDV 12.5 cm/s Left SCA Prox SCA Prox PSV 90.4 cm/s SCA Prox EDV 0 cm/s Left CCA Mid CCA Mid PSV 70 cm/s CCA Mid EDV 14 cm/s Left ECA Prox ECA Prox PSV 79 cm/s ECA Prox EDV 6 cm/s Right ICA/CCA Ratio ICA/CCA PSV 0.786 Left ICA/CCA Ratio ICA/CCA PSV 0.757 Signed 11/20/2019 06:46 AM Marilyn Tracey MD Performing Organization Address [facility] Phon e Number CUPID [address] [place] [address] Cv stress test (11/07/2019 2:48 PM CDT) Resting HR 75 [facility] Resting BP 144 [facility] Peak MET Achieved 1.0 [facility] Time in Exercise 00:01:00 [facility] Phase Max Systolic BP 144 H [facility]USE Max Diastolic BP 76 [facility] Max Heart Rate 111 [facility] Max Predicted Heart 141 [facility] Rate Target HR Formula (220 - Age)*85% [facility] Test Indication [facility] Arrhy During Ex H MUSE ECG Interp Before EX H MUSE ECG Interp During Ex H MUSE Ex Summary Comment [facility] Chest Pain Statement none [facility] Overall HR Response [facility] to Exercise Overall BP Response [facility] To Exercise Reason for As per [facility] Termination protocol Stress Test Waveform interpreted in [facility] Impression report associated with image study. No interpretation is provided as part of this Stress ECG report.--Electronically Signed By Raheel PORTER, Obey Beltrán ([id number]), editor dictionary Rosy Smallwood ([id number]) on 11/07/2019 3:41:11 PM Specimen Narrative Performed At This result has an attachment that is no t available. Performing Organization Address [facility] Phon e Number [facility] [address] [place] [address] Nm myocardial perfusion (11/07/2019 2:48 PM CDT) Pathologist Sig nature Target HR 141.00 bpm [facility] Specimen Narrative Performed At [facility] Nuclear Cardi ology and Cardiac CT [address] [place] [address] Myocardial Pe rfusion Imaging Report Stress ECG tracings are availab le in MUSE, EPIC and Adify All ECG interpretations a re included in this report Pat.Name: JUSTEN BAUMAN Pat.ID: [id number] .Date: 11/05/2019 Refer.MD: MARILYN TRACEY MD Exam Time: 7:49:00 AM Study Type:Myocardial Perfusion Imaging Height: 71in Weight: 165lb BSA: 1.95 m2 Ag e: 1940,79Y Sex: MALE Nuclea r Tech:DRE Kramer Nuclear Event ID:[id number] Order ID: [id number] Reason for Study:Atrial fibrillation*, M itral valve disease Procedures: Single Day Rest / Stress Race: Clinical Symptoms:Regadenoson SUMMARY: BASELINE ECG Atrial fibrillation STRESS TEST RESULTS Maximal Predicted HR 141 beats/minute 85% Maximal Predicted HR 120 beats/minute Stress Test Duration 1 minutes 00 seco nds Resting Heart Rate 75 beats/minute Max imal Heart Rate 111 beats/minute Resting Blood Pressure 144/76 mmHg Max imal Blood Pressure 144/76 mmHg % Maximal Heart Rate Achieved 79% Symptoms During Test Flushing, Dyspnea , Dizziness Reason for Stopping Test As per regade noson protocol Maximal ST-segment shift None Stress-Induced Arrhythmias None Ischemic electrocardiographic changes (S T-segment depression) did not occur at peak regadenoson stress. STRESS TEST INTERPRETATION Normal osiel l regadenoson stress test. SCINTIGRAPHIC RESULTS Perfusion Defect Size (% LV) 0 % Total 0 % Ischemia 0 % Scar Left Ventricular Perfusion Results There is normal tracer distribution duri ng stress and rest. Gated SPECT Results The post-stress left ventricular ejectio n fraction is 62 % with normal regional wall motion and left ventricula r thickening. Left ventricular end-diastolic volume is 84 m l; end-systolic volume is 32 ml. The left ventricle is of normal size at stress and at rest. The right ventricle is of normal size with n ormal wall motion. Conclusion Probably normal regadenoson Tc-99m sesta mibi myocardial perfusion study. The left ventricular ejection f raction is normal. Comments Patients with a normal stress myocardial perfusion study have a low (< 1%) annual risk of cardiac or nonf atal myocardial infarction. Study Quality/Artifacts The study quality is fair. The mild redu ction in apical wall counts during stress is probably due to motion artifacts and diaphragmatic and other soft tissue attenuation artifa cts rather than coronary artery disease. Comparison to Previous Study None available. FINDINGS: Signed 11/07/2019 01:57 PM Obey Pickering MD Procedure Note Interface, Radiology Results In - 2019 1:58 PM CDT Nuclear Cardiology and Cardiac CT [address] [place] [address] [phone] Myocardial Perfusion I maging Report Stress ECG tracings are available in MUSE, EPIC and Adify All ECG interpretations are in cluded in this report Pat.Name: MTIULJUSTEN MALDONADO Mary Pat.I D: [id number] .Date: 11/05/2019 Refer .MD: MARILYN TRACEY MD Exam Time: 7:49:00 AM Study Type:Myocardial Perfusion Imaging Height: 71in Weigh t: 165lb BSA: 1.95 m2 Age: 1 1940,79Y Sex: MALE Nucle ar Tech:DRE Kramer Nuclear Event ID:[id number] Order ID: [id number] Reason for Study:Atrial fibrillation*, M itral valve disease Procedures: Single Day Rest / Stress Race: Clinical Symptoms:Regadenoson SUMMARY: BASELINE ECG Atrial fibrillation STRESS TEST RESULTS Maximal Predicted HR 141 beats/minute 8 5% Maximal Predicted HR 120 beats/minute Stress Test Duration 1 minutes 00 secon ds Resting Heart Rate 75 beats/minute Maxi mal Heart Rate 111 beats/minute Resting Blood Pressure 144/76 mmHg Maxi mal Blood Pressure 144/76 mmHg % Maximal Heart Rate Achieved 79% Symptoms During Test Flushing, Dyspnea, Dizziness Reason for Stopping Test As per regaden oson protocol Maximal ST-segment shift None Stress-Induced Arrhythmias None Ischemic electrocardiographic changes (S T-segment depression) did not occur at peak regadenoson stress. STRESS TEST INTERPRETATION Normal osiel l regadenoson stress test. SCINTIGRAPHIC RESULTS Perfusion Defect Size (% LV) 0 % Total 0 % Ischemia 0 % Scar Left Ventricular Perfusion Results There is normal tracer distribution duri ng stress and rest. Gated SPECT Results The post-stress left ventricular ejectio n fraction is 62 % with normal regional wall motion and left ventricula r thickening. Left ventricular end-diastolic volume is 84 m l; end-systolic volume is 32 ml. The left ventricle is of normal size at stress and at rest. The right ventricle is of normal size with n ormal wall motion. Conclusion Probably normal regadenoson Tc-99m sesta mibi myocardial perfusion study. The left ventricular ejection fr action is normal. Comments Patients with a normal stress myocardial perfusion study have a low (< 1%) annual risk of cardiac or nonf atal myocardial infarction. Study Quality/Artifacts The study quality is fair. The mild redu ction in apical wall counts during stress is probably due to motion artifacts and diaphragmatic and other soft tissue attenuation artifa cts rather than coronary artery disease. Comparison to Previous Study None available. FINDINGS: Signed 11/07/2019 01:57 PM Obey Pickering MD Performing Organization Address City/State/ZIP Code [facility] [address] [place] [address] Transthoracic Echocardiogram Complete, (w Contrast, Strain and 3D if needed) (10/31/2019 11:08 AM CDT) Specimen Narrative Performed At [facility] Echo cardiography Report Pat.Name: JUSTEN BAUMAN Pat.ID: [id number] .Date: 10/31/2019 Refer.MD: MARILYN TRACEY MD Exam Time: 10:24:00 AM Study Type:Ro utine Echo Height: 71in Weight: 165lb BSA: 1.95 m2 Ag e: 1940,79Y Sex: MALE BP: 112/61 HR: 87 bpm Sonogrphr: ALDEN El FASE Pat. Stat.:Outpatient Room: [place] Study Status:Final Echo Event ID:[id number] Order ID: [id number] Reason for Study:Chronic atrial fibrilla tion [I48.20 (ICD-10-CM)]; Mitral valve disease [I05.9 (ICD-10-CM)] ; Atrial fibrillation, unspecified type (HCC) [I48.91 (ICD-10-C M)] History / Clinical:COPD, Acute pulmona ry insufficiency, Bowel obstruction, S/p repair of Morgagni clemencia ia, Subcutaneous emphysema after procedure, Former smoker Procedures: 2D Echo, Colorflow Doppler Race: C SUMMARY: LV EF is normal. Overall wall motion i s normal. Diastolic dysfunction Grade II (Moderate ): Impaired relaxation with elevated LV filling pressures. FINDINGS: LV: LV size is normal. LV EF is normal. Overall wall motion is normal. Septal motion is paradoxical secondary to LBBB or conduction abnormality. E stimated EF is 55-59%. RV: RV size is upper limits of normal. A pacemaker wire is seen in the RV. RV systolic fu nction is normal. LA: LA volume is severely enlar ged. RA: RA volume is enlarged. AO: Aortic root diameter is nor mal. JENIFFER: No pericardial effusion. AV: No structural AV abnormalit ies noted. MV: No structural MV abnormalit ies noted. PV: No structural PV abnormalit ies noted. TV: No structural TV abnormalit ies noted. Mild tricuspid regurgitation Fontana: Diastolic dysfunction Grade II (Moderate): Impaired relaxation with elevated LV filling pressures. Other: Estimated PA systolic pressu re is 44 mmHg, assuming a mean RAP of 10 mmHg. MEASUREMENTS: 2D Parasternal Long [place] Ao An 2 cm LVPWd 1.1 cm IVSd 1.1 cm RWT 0.47 LVIDd 4.6 cm Index 2.4 cm/m2 LV Mass 189 g (122-1 74)* LVIDs 3.4 cm LVM In dex 97 g/m LV%fs 27 % LVOT 1.9 cm LA Sng Plane LA Area 29 cm (8.8-23.4)* LA Vol 105 ml Index 54 ml/m2 LA LngAx 7.1 cm LVOT LVOT Area 2.8 cm DOPPLER TV Pressure Gradient TV PkVel 293 cm/s TV PG 34 mmHg Signed 11/01/2019 03:47 PM Austen Booker M.D. Procedure Note Interface, Radiology Results In - 2019 3:48 PM CDT [facility] Echocardiography Report Pat.Name: JUSTEN BAUMAN Pat.I D: [id number] St.Date: 10/31/2019 Refer .MD: MARILYN TRACEY MD Exam Time: 10:24:00 AM Study Type:Routine Echo Height: 71in Weigh t: 165lb BSA: 1.95 m2 Age: 1 1940,79Y Sex: MALE BP: 112/61 HR: 87 bpm Sonogrphr: ALDEN El FASE Pat. Stat.:Outpatient Room: [place] Study Status:Final Echo Event ID:[id number] Order ID: [id number] Reason for Study:Chronic atrial fibrilla tion [I48.20 (ICD-10-CM)]; Mitral valve disease [I05.9 (ICD-10-CM)] ; Atrial fibrillation, unspecified type (HCC) [I48.91 (ICD-10-C M)] History / Clinical:COPD, Acute pulmonar y insufficiency, Bowel obstruction, S/p repair of Morgagni clemencia ia, Subcutaneous emphysema after procedure, Former smoker Procedures: 2D Echo, Colorflow Doppler Race: C SUMMARY: LV EF is normal. Overall wall motion is normal. Diastolic dysfunction Grade II (Moderate ): Impaired relaxation with elevated LV filling pressures. FINDINGS: LV: LV size is normal. LV EF is no rmal. Overall wall motion is normal. Septal motion is parad oxical secondary to LBBB or conduction abnormality. Estima paula EF is 55-59%. RV: RV size is upper limits of nor mal. A pacemaker wire is seen in the RV. RV systolic functio n is normal. LA: LA volume is severely enlarged . RA: RA volume is enlarged. AO: Aortic root diameter is normal . JENIFFER: No pericardial effusion. AV: No structural AV abnormalities noted. MV: No structural MV abnormalities noted. PV: No structural PV abnormalities noted. TV: No structural TV abnormalities noted. Mild tricuspid regurgitation Fontana: Diastolic dysfunction Grade II (Moderate): Impaired relaxation with elevated LV fi lling pressures. Other: Estimated PA systolic pressure is 44 mmHg, assuming a mean RAP of 10 mmHg. MEASUREMENTS: 2D Parasternal Long [place] Ao An 2 cm LVPW d 1.1 cm IVSd 1.1 cm RWT 0.47 LVIDd 4.6 cm Inde x 2.4 cm/m2 LV Mass 189 g (122-174)* LVIDs 3.4 cm LVM Index 97 g/m LV%fs 27 % LVOT 1.9 cm LA Sng Plane LA Area 29 cm (8.8-23.4)* LA Vol 105 ml Index 54 ml/m2 LA LngAx 7.1 cm LVOT LVOT Area 2.8 cm DOPPLER TV Pressure Gradient TV PkVel 293 cm/s TV P G 34 mmHg Signed 11/01/2019 03:47 PM Austen Booker M.D. Performing Organization Address City/[facility] Code Phon e Number [facility] [id number] [place] [address] ECG 12 lead (10/29/2019 10:06 AM CDT) Pathologist Sig nature Ventricular rate 76 [facility] Atrial rate 72 [facility] QRSD interval 86 [facility] QT interval 368 [facility] QTC interval 414 [facility] QRS axis 1 64 [facility] T wave axis -27 [facility] EKG impression Atrial-paced rhythm with pre mature ventricular or aberrantly conducted complexes--Nonspecific T wave abnormality-Abnormal ECG-In automated comparison with ECG of 23-JAN-2018 05:10,-Current undetermined rhythm precludes rhythm comparison, needs [facility] review-Questionable change i n QRS axis- Specimen Narrative Performed At This result has an attachment that is no t available. Performing Organization Address City/[facility] Code Phon e Number [facility] [id number] [place] [address] after 01/17/2019 Insurance Payer Benefit Plan / Subscriber ID Effective Dates Phone Addre ss Type Group [employer] MEDICARE HU[employer]NA HMO GOLD [id number] 2019-Present HMO PLUS MEDICARE Advance Directives For more information, please contact: [phone] Type Date Recorded Patient Assistant Operations Manager Explanati on Advance Directives, Living Will and Medical Power of Measurement Advisor
[2020-01-18] MEDS ORDERED: NA CHLORIDE 0.9% 1,000 ML ONE ×2 (15:26→17:12)
[2020-01-18] MEDS ORDERED: dexAMETHasone 4 MG/ML VIAL ONE (15:27)
[2020-01-18 15:44] LABS: Absolute Lymphocytes (CBC) 0.6 K/uL (0.7-4.9); Basophils % 0.3 % (0-1.3); Hematocrit 40.3 % (39.6-49.0); Lymphocytes % 5.1 % (15.3-44.8); MPV 9.4 fL (7.6-11.3); RBC Red Blood Cell Count 4.62 M/uL (4.33-5.43)
[2020-01-18 15:56] LABS: Protime INR 2.86
[2020-01-18 16:05] LABS: ALT/SGPT 34 U/L (12-78); AST/SGOT 35 U/L (15-37); Albumin 3.2 g/dL (3.4-5.0); Alkaline Phosphatase 87 U/L (45-117); Amylase 38 U/L (25-115); BUN Blood Urea Nitrogen 15 mg/dL (7-18); Bicarbonate 27 mmol/L (21-32); Bilirubin Direct 0.2 mg/dL (0-0.2); Bilirubin Total 0.9 mg/dL (0.2-1.0); CKMB Creatine Kinase MB < 1.0 ng/mL (0.3-3.6); Creatine Phosphokinase 78 U/L (39-308); Glucose Level 105 mg/dL (74-106); Lipase 82 U/L (73-393); Potassium 4.2 mmol/L (3.5-5.1); Protein, Total 7.1 g/dL (6.4-8.2); Sodium Level 138 mmol/L (136-145); Troponin (Emerg Dept Use Only) < 0.02 ng/mL (0.0-0.045)
[2020-01-18 16:10] LABS: Blood Morphology Comment NOT SEEN (NOT SEEN); Platelet Estimate ADEQ; White Blood Cell Scan OK (OK)
--- NOTE | 2020-01-18 16:22 | RAD REPORT ---
EXAM DESCRIPTION: [place] Single View01/18/2020 3:42 pm CLINICAL HISTORY: Shortness of breath COMPARISON: 2019 FINDINGS: The lungs appear clear of acute infiltrate. The heart is mildly enlarged. Right pericardi ac opacity unchanged consistent with hernia. Postsurgical changes involve the chest. Pacemaker leads in place IMPRESSION: No acute abnormalities displayed
[2020-01-18 16:31] LABS: Urine Blood NEGATIVE (NEG); Urine Glucose NEGATIVE (NEG); Urine Protein NEGATIVE (NEG); Urine Specific Gravity 1.025 (1.005-1.030); Urine pH 5.5 (5.0-7.0)
[2020-01-18 16:46] LABS: Urine Bacteria <20 /HPF (NONE SEEN); Urine Culture Reflex Order NOT NEEDED; Urine RBC NONE SEEN /HPF (NONE SEEN)
--- NOTE | 2020-01-18 18:33 | EDPHYS ---
Physician Documentation [facility] Name: Bharat Bauman Age: 79 yrs Sex: Male : 1940 Arrival Date: 01/18/2020 Time: 14:39 Bed 18 Private MD: ED Physician Alexys Ibarra HPI: 01/17 15:09 This 79 yrs old Male presents to ER via Wheelchair with complaints of snw Breathing Difficulty, Blood Pressure Problem. 15:09 The patient has shortness of breath at rest. Onset: The symptoms/episode began/occurred snw suddenly, today. Duration: The symptoms are continuous. The patient's shortness of breath is aggravated by exertion, light activity, is alleviated by rest, sitting up, application of supplemental oxygen. Associated signs and symptoms: Pertinent positives: fatigue and malaise. Severity of symptoms: At their worst the symptoms were moderate severe. It is unknown whether or not the patient has had similar symptoms in the past. It is unknown whether or not the patient has recently seen a physician, sees Dr Alexander. Began [facility] for COPD one month ago and he is doing well on that. Also take Coumadin at night. No other medications at this time. Pt reports profound hypotension this am. Historical: - Allergies: 14:47 Morphine; ll1 - PMHx: 14:47 Atrial Fib; COPD; CVA; Hypertension; Pacemaker; ll1 - PSHx: 14:47 Cholecystectomy; Hernia repair; ll1 - Immunization history:: Flu vaccine is up to date. - Social history:: Smoking status: Patient/guardian denies using tobacco, the patient reports quitting approximately 45 years ago. ROS: 15:08 Eyes: Negative for injury, pain, redness, and discharge, ENT: Negative for injury, snw pain, and discharge, Neck: Negative for injury, pain, and swelling, Cardiovascular: Negative for chest pain, palpitations, and edema, Abdomen/GI: Negative for abdominal pain, nausea, vomiting, diarrhea, and constipation, Back: Negative for injury and pain, : Negative for injury, bleeding, discharge, and swelling, MS/Extremity: Negative for injury and deformity, Skin: Negative for injury, rash, and discoloration, Neuro: Negative for headache, weakness, numbness, tingling, and seizure, Psych: Negative for depression, anxiety, suicide ideation, homicidal ideation, and hallucinations. 15:08 Constitutional: Positive for fatigue, malaise. 15:08 Respiratory: Positive for dyspnea on exertion, shortness of breath. Exam: 15:07 Constitutional: This is a well developed, well nourished patient who is awake, alert, snw and in no acute distress. Head/Face: Normocephalic, atraumatic. Eyes: Pupils equal round and reactive to light, extra-ocular motions intact. Lids and lashes normal. Conjunctiva and sclera are non-icteric and not injected. Cornea within normal limits. Periorbital areas with no swelling, redness, or edema. ENT: Nares patent. No nasal discharge, no septal abnormalities noted. Tympanic membranes are normal and external auditory canals are clear. Oropharynx with no redness, swelling, or masses, exudates, or evidence of obstruction, uvula midline. Mucous membranes moist. Neck: Trachea midline, no thyromegaly or masses palpated, and no cervical lymphadenopathy. Supple, full range of motion without nuchal rigidity, or vertebral point tenderness. No Meningismus. Chest/axilla: Normal chest wall appearance and motion. Nontender with no deformity. No lesions are appreciated. Cardiovascular: irregularly irregular rate and rhythm with a normal S1 and S2. No gallops, murmurs, or rubs. Normal PMI, no JVD. No pulse deficits. Abdomen/GI: Soft, non-tender, with normal bowel sounds. No distension or tympany. No guarding or rebound. No evidence of tenderness throughout. Back: No spinal tenderness. No costovertebral tenderness. Full range of motion. Skin: Warm, dry with normal turgor. Normal color with no rashes, no lesions, and no evidence of cellulitis. MS/ Extremity: Pulses equal, no cyanosis. Neurovascular intact. Full, normal range of motion. Neuro: Awake and alert, GCS 15, oriented to person, place, time, and situation. Cranial nerves II-XII grossly intact. Motor strength 5/5 in all extremities. Sensory grossly intact. Cerebellar exam normal. Normal gait. Psych: Awake, alert, with orientation to person, place and time. Behavior, mood, and affect are within normal limits. 15:07 Respiratory: the patient does not display signs of respiratory distress, Respirations: shallow respirations, that is moderate, Breath sounds: decreased breath sounds, that are moderate, that are severe, are located in both bases, are heard in the left posterior upper lobe, left posterior lower lobe, right posterior middle lobe and right posterior lower lobe. Vital Signs: 14:45 BP 107 / 52; Pulse 82; Resp 18; Temp 99.9; Pulse Ox 96% ; Weight 73.48 kg; Height 5 ft. ll1 11 in. (180.34 cm); Pain 0/10; 16:16 BP 102 / 60; Pulse 78; Resp 18; Temp 98.8(O); Pulse Ox 94% on R/A; Pain 0/10; ph 17:27 BP 113 / 54; Pulse 84; Resp 18; Pulse Ox 93% on R/A; ph 18:24 BP 110 / 51 LA Supine (auto/reg); Pulse 77; Pulse Ox 97% on R/A; jp3 18:25 BP 112 / 57 LA Sitting (auto/reg); Pulse 87; Pulse Ox 95% on R/A; jp3 18:28 BP 114 / 59 LA Standing (auto/reg); Pulse 90; Pulse Ox 95% on R/A; jp3 19:14 Temp 98.2(O); ph 14:45 Body Mass Index 22.59 (73.48 kg, 180.34 cm) ll1 MDM: 15:04 Patient medically screened. snw 18:35 Data reviewed: vital signs, nurses notes. Counseling: I had a detailed discussion with snw the patient and/or guardian regarding: the historical points, exam findings, and any diagnostic results supporting the discharge/admit diagnosis, lab results, radiology results, the need for outpatient follow up, to return to the emergency department if symptoms worsen or persist or if there are any questions or concerns that arise at home. Response to treatment: the patient's symptoms have markedly improved after treatment. Special discussion: Based on the history and exam findings, there is no indication for further emergent testing or inpatient evaluation. I discussed with the patient/guardian the need to see the primary care provider for further evaluation of the symptoms. 01/17 14:54 Order name: T\T\S; Complete Time: 16:38 [facility] 01/17 14:54 Order name: Amylase, Serum; Complete Time: 16:05 [facility] 01/17 14:54 Order name: Basic Metabolic Panel; Complete Time: 16:05 01/17 14:54 Order name: Blood Culture Adult (2) 01/17 14:54 Order name: CBC with Diff; Complete Time: 16:15 01/17 14:54 Order name: Ckmb; Complete Time: 16:05 01/17 14:54 Order name: CPK; Complete Time: 16:05 01/17 14:54 Order name: Lactate; Complete Time: 16:05 01/17 14:54 Order name: LFT's; Complete Time: 16:05 01/17 14:54 Order name: Lipase; Complete Time: 16:05 01/17 14:54 Order name: Procalcitonin; Complete Time: 16:15 01/17 14:54 Order name: Protime (+inr); Complete Time: 16:05 01/17 14:54 Order name: Ptt, Activated; Complete Time: 16:05 01/17 14:54 Order name: Troponin (emerg Dept Use Only); Complete Time: 16:05 01/17 14:54 Order name: Urine Microscopic Only; Complete Time: 17:06 01/17 14:54 Order name: Chest Single View XRAY; Complete Time: 16:27 01/17 14:54 Order name: Accucheck; Complete Time: 16:48 01/17 14:54 Order name: Cardiac monitoring; Complete Time: 16:48 01/17 14:54 Order name: EKG - Nurse/Tech; Complete Time: 16:48 01/17 14:54 Order name: IV Saline Lock - Large Bore; Complete Time: 15:35 01/17 14:54 Order name: Labs collected and sent; Complete Time: 15:35 01/17 14:54 Order name: O2 Per Protocol; Complete Time: 15:35 01/17 14:54 Order name: O2 Sat Monitoring; Complete Time: 15:35 01/17 14:54 Order name: Urine Dipstick-Ancillary (obtain specimen); Complete Time: 18:11 snw 01/17 16:11 Order name: CBC Smear Scan; Complete Time: 16:15 EDMS 01/17 16:19 Order name: Urine Dipstick--Ancillary (enter results) 01/17 16:20 Order name: Urine Dipstick-Ancillary; Complete Time: 16:38 [facility] 01/17 18:06 Order name: Orthostatics; Complete Time: 18:38 snw EC:00 Rate is 85 beats/min. Rhythm is regular. QRS [place] is Normal. ME interval is normal. QRS snw interval is normal. QT interval is normal. Clinical impression: NSR w/ Non-specific ST/T Changes. Reviewed by me. Administered Medications: 16:10 Drug: NS 0.9% (30 ml/kg) 30 ml/kg Route: IV; Rate: bolus; Site: right antecubital; ph 18:38 Follow up: Response: No adverse reaction; IV Status: Completed infusion; IV Intake: ph 2000ml 16:10 Drug: Decadron - Dexamethasone 10 mg Route: IVP; Site: right antecubital; ph 18:11 Follow up: Response: No adverse reaction ph Disposition: 01/18 15:53 Co-signature as Attending Physician, Alexys Ibarra MD I agree with the assessment and kdr plan of care. Disposition: 01/18/20 18:32 Discharged to Home. Impression: Volume depletion, unspecified, Malaise and fatigue. - Condition is Stable. - Discharge Instructions: Dehydration, Elderly, Fatigue, Rehydration, Elderly. - Medication Reconciliation Form, Thank You Letter, Antibiotic Education, Prescription Opioid Use form. - Follow up: Emergency Department; When: As needed; Reason: Worsening of condition. Follow up: Private Physician; When: 2 - 3 days; Reason: Recheck today's complaints, Continuance of care, Re-evaluation by your physician. Signatures: Dispatcher [employer] [facility] Alexys Ibarra MD MD kdr Waters, Shelly, AVIATION MANAGER-C AVIATION MANAGER-Marthaw Juju Durbin RN RN ph Treasure Marcos RN RN ll1 Corrections: (The following items were deleted from the chart) 01/17 15:09 15:07 Constitutional: This is a well developed, well nourished patient who is awake, snw alert, and in no acute distress. Head/Face: Normocephalic, atraumatic. Eyes: Pupils equal round and reactive to light, extra-ocular motions intact. Lids and lashes normal. Conjunctiva and sclera are non-icteric and not injected. Cornea within normal limits. Periorbital areas with no swelling, redness, or edema. ENT: Nares patent. No nasal discharge, no septal abnormalities noted. Tympanic membranes are normal and external auditory canals are clear. Oropharynx with no redness, swelling, or masses, exudates, or evidence of obstruction, uvula midline. Mucous membranes moist. Neck: Trachea midline, no thyromegaly or masses palpated, and no cervical lymphadenopathy. Supple, full range of motion without nuchal rigidity, or vertebral point tenderness. No Meningismus. Chest/axilla: Normal chest wall appearance and motion. Nontender with no deformity. No lesions are appreciated. Cardiovascular: Regular rate and rhythm with a normal S1 and S2. No gallops, murmurs, or rubs. Normal PMI, no JVD. No pulse deficits. Abdomen/GI: Soft, non-tender, with normal bowel sounds. No distension or tympany. No guarding or rebound. No evidence of tenderness throughout. Back: No spinal tenderness. No costovertebral tenderness. Full range of motion. Skin: Warm, dry with normal turgor. Normal color with no rashes, no lesions, and no evidence of cellulitis. MS/ Extremity: Pulses equal, no cyanosis. Neurovascular intact. Full, normal range of motion. Neuro: Awake and alert, GCS 15, oriented to person, place, time, and situation. Cranial nerves II-XII grossly intact. Motor strength 5/5 in all extremities. Sensory grossly intact. Cerebellar exam normal. Normal gait. Psych: Awake, alert, with orientation to person, place and time. Behavior, mood, and affect are within normal limits. snw 16:48 14:54 Cook ordered. snw ph 19:16 18:32 01/18/2020 18:32 Discharged to Home. Impression: Volume depletion, unspecified; ph Malaise and fatigue. Condition is Stable. Forms are Medication Reconciliation Form, Thank You Letter, Antibiotic Education, Prescription Opioid Use. Follow up: Emergency Department; When: As needed; Reason: Worsening of condition. Follow up: Private Physician; When: 2 - 3 days; Reason: Recheck today's complaints, Continuance of care, Re-evaluation by your physician. snw
--- NOTE | 2020-01-18 18:33 | ER ---
Nurse's Notes [facility] Name: Bharat Bauman Age: 79 yrs Sex: Male : 1940 Arrival Date: 01/18/2020 Time: 14:39 Bed 18 Private MD: Diagnosis: Volume depletion, unspecified;Malaise and fatigue Presentation: 01/17 14:45 Chief complaint: Patient states: SOB, fever, fatigue, weak for 1 day. Temp 101.2 at ll1 home, BP 67/48, HR 82 at home today around 1315. No N/V/D. Coronavirus screen: Client denies travel out of the [place] in the last 14 days. cough unrelated to allergies, difficulty breathing, fatigue, fever, shortness of breath, Client presents with at least one sign or symptom that may indicate coronavirus-19. Standard/surgical mask placed on the client. Ebola Screen: Patient denies travel to an Ebola-affected area in the 21 days before illness onset. Initial Sepsis Screen: Does the patient meet any 2 criteria? No. Patient's initial sepsis screen is negative. Risk Assessment: Do you want to hurt yourself or someone else? Patient reports no desire to harm self or others. Onset of symptoms was January 18, 2020. 14:45 Method Of Arrival: Wheelchair ll1 14:45 Acuity: MELANIE 3 ll1 19:14 Initial Sepsis Screen: Does the patient have a suspected source of infection? No. ph Patient's initial sepsis screen is negative. Historical: - Allergies: 14:47 Morphine; ll1 - PMHx: 14:47 Atrial Fib; COPD; CVA; Hypertension; Pacemaker; ll1 - PSHx: 14:47 Cholecystectomy; Hernia repair; ll1 - Immunization history:: Flu vaccine is up to date. - Social history:: Smoking status: Patient/guardian denies using tobacco, the patient reports quitting approximately 45 years ago. Screenin:20 Abuse screen: Denies threats or abuse. Denies injuries from another. Nutritional ph screening: No deficits noted. Tuberculosis screening: No symptoms or risk factors identified. Fall Risk None identified. Assessment: 16:17 General: Appears in no apparent distress. comfortable, slender, well groomed, Behavior ph is calm, cooperative, appropriate for age. Pain: Denies pain. Neuro: Level of Consciousness is awake, alert, obeys commands, Oriented to person, place, time, situation, Reports weakness ,generalized. Cardiovascular: Reports fatigue, shortness of breath, Denies chest pain, nausea, Capillary refill < 3 seconds in bilateral fingers Patient's skin is warm and dry. Rhythm is sinus rhythm. Respiratory: Reports shortness of breath cough that is Airway is patent Respiratory effort is even, unlabored, Respiratory pattern is regular, symmetrical. GI: No signs and/or symptoms were reported involving the gastrointestinal system. Patient currently denies abdominal pain, diarrhea, nausea, vomiting. : No signs and/or symptoms were reported regarding the genitourinary system. Derm: Skin is intact, Skin is pink, warm \T\ dry. Musculoskeletal: Circulation, motion, and sensation intact. Range of motion: intact in all extremities. 17:27 Reassessment: Patient appears in no apparent distress at this time. Patient and/or ph family updated on plan of care and expected duration. Pain level reassessed. Patient is alert, oriented x 3, equal unlabored respirations, skin warm/dry/pink. Vital Signs: 14:45 BP 107 / 52; Pulse 82; Resp 18; Temp 99.9; Pulse Ox 96% ; Weight 73.48 kg; Height 5 ft. ll1 11 in. (180.34 cm); Pain 0/10; 16:16 BP 102 / 60; Pulse 78; Resp 18; Temp 98.8(O); Pulse Ox 94% on R/A; Pain 0/10; ph 17:27 BP 113 / 54; Pulse 84; Resp 18; Pulse Ox 93% on R/A; ph 18:24 BP 110 / 51 LA Supine (auto/reg); Pulse 77; Pulse Ox 97% on R/A; jp3 18:25 BP 112 / 57 LA Sitting (auto/reg); Pulse 87; Pulse Ox 95% on R/A; jp3 18:28 BP 114 / 59 LA Standing (auto/reg); Pulse 90; Pulse Ox 95% on R/A; jp3 19:14 Temp 98.2(O); ph 14:45 Body Mass Index 22.59 (73.48 kg, 180.34 cm) ll1 ED Course: 14:39 Patient arrived in ED. mr 14:47 Triage completed. ll1 14:48 Arm band placed on Patient placed in an exam room, on a stretcher. ll1 14:52 [facility]C [facility]. snw 14:52 Alexys Ibarra MD is Attending Physician. snw 15:09 Juju Durbin, RN is Primary Nurse. ph 15:15 First set of blood cultures drawn by me. Inserted saline lock: 20 gauge in right jp3 antecubital area, using aseptic technique. Blood collected. 15:20 Initial lab(s) drawn, by me, sent to lab. T\T\S collected, blood band applied to patient. jp3 Patient maintains SpO2 saturation greater than 95% on room air. 15:27 Second set of blood cultures drawn by me, X-ray(s) taken. jp3 15:42 Chest Single View XRAY In Process Unspecified. EDMS 15:58 Bed in low position. Call light in reach. Side rails up X 1. Side rails up X2. Verbal jp3 reassurance given. environmental monitoring specialist on. Pulse ox on. NIBP on. 15:58 EKG done, by ED staff, reviewed by Monica SAEED. jp3 19:13 No provider procedures requiring assistance completed. IV discontinued, intact, ph bleeding controlled, No redness/swelling at site. Pressure dressing applied. Administered Medications: 16:10 Drug: NS 0.9% (30 ml/kg) 30 ml/kg Route: IV; Rate: bolus; Site: right antecubital; ph 18:38 Follow up: Response: No adverse reaction; IV Status: Completed infusion; IV Intake: ph 2000ml 16:10 Drug: Decadron - Dexamethasone 10 mg Route: IVP; Site: right antecubital; ph 18:11 Follow up: Response: No adverse reaction ph Intake: 18:38 IV: 2000ml; Total: 2000ml. ph Outcome: 18:32 Discharge ordered by . snw 19:14 Discharged to home via wheelchair, with family. ph 19:14 Condition: good 19:14 Discharge instructions given to patient, family, Instructed on discharge instructions, follow up and referral plans. Demonstrated understanding of instructions, follow-up care. 19:16 Patient left the ED. ph Signatures: Dispatcher [employer] EDIL Monica Ha FNP-C FNP-Csnander Nely Madden Juju Durbin, RN RN ph Josue Godinez jp3 Treasure Marcos, LAKESHA RN ll1
[2020-01-18 20:19] VITALS: BP 112/57; O2SAT 95
[2020-01-18 20:21] VITALS: TEMP 98.2
== END 2020-01-18 19:16 | disposition home or self-care (01) ==
LOC: ER 14:36
DX: E86.9 Volume depletion, unspecified (principal); R53.81 Other malaise; R53.83 Other fatigue; I10 Essential (primary) hypertension; J44.9 Chronic obstructive pulmonary disease, unspecified; Z95.0 Presence of cardiac pacemaker; Z88.5 Allergy status to narcotic agent
CPT/HCPCS: 96365; 93005; 87040 ×2; 85025; 80048; 36415; 82150; 86900; 86850; 82550; 85610; 86901; 80076; 83605; 85730; 84484; 82553; 83690; 84145; 71045; 96375; 99285; 96366; J7030 ×2; 81003; 81015

== ENCOUNTER 2022-03-01 07:24 | Day surgery (SDC) | payer MEDICARE ==
[2022-03-01] MEDS ORDERED: Ringers Lactate 1,000 ML IV ONE (07:42)
[2022-03-01] MEDS ORDERED: propofoL 200 MG/20 ML VIAL IV ONE (08:12)
[2022-03-01] MEDS ORDERED: GLYCOPYRROLATE 0.2 MG/ML SYR ONE (08:12)
[2022-03-01] MEDS ORDERED: LIDOCAINE 1% MPF 10 ML AMPULE ONE (08:12)
[2022-03-01] MEDS ORDERED: SIMETHICONE 40 MG/ 0.6 ML ONE (08:23)
--- NOTE | 2022-03-01 09:44 | OP ---
Surgeon: Lucio Desouza MD Procedure Performed: Esophagogastroduodenoscopy. Indication For Procedure: Loss of appetite, weight loss, abdominal pain. Plan For Anesthesia: Monitored anesthesia care. Complexity: High due to the patient's significant comorbidities, need for anticoagulation as well as COPD and cardiac risk factors. Technique: After obtaining informed consent from the patient, explaining risks and complications, wh ich include, but are not limited to bleeding, infection, perforation, and anesthesia complication, th e patient was placed in left lateral position. Sedation was given. From then on, the scope was adva nced to the mouth and carefully guided up till the second portion of the duodenum. After completion of examination, scope and equipment drawn and procedure terminated in a safe manner. Findings: Esophagus: No gross lesion seen in the upper and mid esophagus. In the distal esophagus, there was evidence of LA grade B esophagitis with a small Schatzki ring and a small hiatal hernia. Biopsies were taken from the distal esophagus. Stomach: Mild patchy erythema seen in the body and antrum. Biopsies taken. Duodenum: The bulb and second portion appeared normal. Complications: None. Tolerance To Anesthesia: Excellent. Postoperative Diagnoses: Esophagitis, small hiatal hernia, and gastritis. Plan: 1.Await pathology results. 2.Oral PPI once a day, anti reflux measures, avoid NSAIDs. Special Note: The endoPopSeal which is a software recording in doing the reports for endoscopy procedure is down, so the procedure was done without any issues with reasonable with reasonable views, but wilbur ges could not be captured or printed due to the malfunction. US/MODL Voice ID: [id number] Report ID: [id number]
[2022-03-01 10:47] VITALS: BP 121/59; TEMP 96.8; O2SAT 99
--- NOTE | 2022-03-01 18:06 | OP ---
Surgeon: Lucio Desouza MD Procedure Performed: Colonoscopy. Indication For Procedure: Weight loss, abdominal pain, and change in bowel habits. Anesthesia: Monitored anesthesia care. Complexity: High due to patient being on chronic anticoagulation and cardiac and pulmonary risk fact ors. Technique: After obtaining informed consent from the patient and explaining risks and complications which include, but are not limited to bleeding, infection, perforation, anesthesia complication, and after performing the upper endoscopy, the patient's digital rectal exam was performed. The scope was inserted into the rectum and carefully guided up till the cecum. The cecum was identified by the il eocecal valve and appendiceal orifice. Then gradually the scope was withdrawn while carefully examin ing the mucosa. Scope withdrawal time was 18 minutes. Quality of prep was good. Findings: Multiple small diverticula seen in the sigmoid colon. In the ascending colon, a 4 mm poly p was seen and this was removed by hot biopsy polypectomy. At the hepatic flexure, a 1.2 cm sessile polyp was seen and this was removed with snare polypectomy to prevent risk of bleeding. A clip was p laced to prevent bleeding complication from developing later. Hemostasis clip was placed. In the tr ansverse colon, two 4 mm polyps were seen. These were removed by hot biopsy polypectomy. In the josé cending colon, a 5 mm polyp was seen and removed with hot biopsy polypectomy. In the sigmoid colon, a 5-6 mm polyp was seen and was removed by hot biopsy polypectomy. Retroflexion revealed grade 1-2 i nternal hemorrhoids. Complications: None. Tolerance To Anesthesia: Excellent. Postoperative Diagnoses: 1.Multiple colon polyps. 2.Diverticulosis. Plan: 1.Await pathology results. 2.Follow up in the GI clinic in 2 weeks. 3.Because of his age, no further indication for any future colonoscopies. US/MODL Voice ID: [id number] Report ID: [id number]
== END 2022-03-01 10:35 | disposition home or self-care (01) ==
LOC: OR 07:24
PROVIDERS: ATTEND Internal Medicine Gastroenterology
PROC: 0DBN8ZX Excision of Sigmoid Colon, Via Natural or Artificial Opening Endoscopic, Diagnostic (ICD-10-PCS; 2022-03-01)
PROC: 0DBM8ZX Excision of Descending Colon, Via Natural or Artificial Opening Endoscopic, Diagnostic (ICD-10-PCS; 2022-03-01)
PROC: 0DB38ZX Excision of Lower Esophagus, Via Natural or Artificial Opening Endoscopic, Diagnostic (ICD-10-PCS; 2022-03-01)
PROC: 0DB78ZX Excision of Stomach, Pylorus, Via Natural or Artificial Opening Endoscopic, Diagnostic (ICD-10-PCS; 2022-03-01)
PROC: 0DBK8ZX Excision of Ascending Colon, Via Natural or Artificial Opening Endoscopic, Diagnostic (ICD-10-PCS; principal; 2022-03-01 08:30)
PROC: 0DBL8ZX Excision of Transverse Colon, Via Natural or Artificial Opening Endoscopic, Diagnostic (ICD-10-PCS; 2022-03-01 08:30)
DX: D12.2 Benign neoplasm of ascending colon (principal); D12.3 Benign neoplasm of transverse colon; D12.5 Benign neoplasm of sigmoid colon; R19.4 Change in bowel habit; R10.9 Unspecified abdominal pain; R63.4 Abnormal weight loss; K59.00 Constipation, unspecified; R53.1 Weakness; R63.0 Anorexia; Z88.6 Allergy status to analgesic agent; J44.9 Chronic obstructive pulmonary disease, unspecified; Z95.0 Presence of cardiac pacemaker; K57.30 Diverticulosis of large intestine without perforation or abscess without bleeding; K29.50 Unspecified chronic gastritis without bleeding; K21.00 Gastro-esophageal reflux disease with esophagitis, without bleeding; K44.9 Diaphragmatic hernia without obstruction or gangrene
CPT/HCPCS: 88312; 88305; 45384; 45385; 43239; J2704; J7120

== ENCOUNTER 2022-09-17 22:25 | Inpatient (IN) | payer MEDICARE ==
--- OUTSIDE RECORDS SUMMARY | 2022-09-17 22:31 | XMS REPORT | Continuity of Care Document ---
:1940 Author Organization [facility] t Address [address] [place] [address] [address] [place] [address] Care Team Providers Name Role Phone Bennett Alexander DO Primary Care Physician [phone] Bennett Alexander Attending Clinician Unavailable Jazlyn Nesbitt MA Attending Clinician Unavailable Kyung OPRTER, Marilyn Martinez Attending Clinician Michelle Hyman LVN Attending Clinician Unavailable Kyleigh Kelly Attending Clinician Hernan PORTER PhD, Brandie S. Attending Clinician Josy Attending Clinician Unavailable Erika Mayberry MA Attending Clinician Unavailable Sydnee Silva Attending Clinician Mckenzie Farrell Attending Clinician Saroj Olivares Attending Clinician Unavailable Bennett Alexander Admitting Clinician Unavailable Josy Admitting Clinician Unavailable Payers Payer Name Policy Type Policy Effective Date Expiration Date Sour ce Number [employer] [id number] 2021 (MEDICARE 00:00:00 REPLACEMENT HMO) [employer] MEDICARE C1 [id number] 2020 Common Sp mahad 00:00:00 - [facility] Problems Condition Condition Condition Status Onset Resolution Last Treating Co mments Source Name Details Category Date Date Treatment Clinician Date NSVT NSVT Disease Active Methodi (nonsustai (nonsustai 9-13 st laura laura 00:00: Hospita ventricula ventricula 00 l r r tachycardi tachycardi a) a) S/p dual S/p dual Disease Active Metho di chamber chamber 6-27 st pacemaker pacemaker 00:00: Hosp jaimee (MDT, orig (MDT, orig 00 l 01/02/2010, 01/02/2010, gen gen changed changed 06/16/2016, 06/16/2016, RV lead RV lead replaced replaced [address] Restrepo) Kaye) S/P S/P Disease Active Methodi ablation ablation 6-27 st of atrial of atrial 00:00: Hosp jaimee fibrillati fibrillati 00 l on on (04/28/2016 (04/28/[address] Restrepo) Kaye) Chronic Chronic Disease Active Methodi atrial atrial 7-07 st fibrillati fibrillati 00:00: Ho spita on on 00 l 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 7-07 st disease disease 00:00: Hospita 00 l S/P S/P Disease Active Methodi Laparoscop Laparoscop 2-15 st ic ic 00:00: Hospita reduction reduction 00 l and repair and repair of of Morgagni Morgagni hernia hernia Acidosis, Acidosis, Disease Active Met hodi metabolic, metabolic, 2-15 st with with 00:00: Hospita respirator respirator 00 l y acidosis y acidosis Acute Acute Disease Active Methodi pulmonary pulmonary 2-15 st insufficie insufficie 00:00: Ho spita ncy ncy 00 l 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 2-[address] emphysema emphysema 00:00: Hosp jaimee after after 00 l procedure procedure Hyperglyce Hyperglyce Disease Active M ethyajaira fred fred 2-15 st 00:00: Hospita 00 l Postoperat Postoperat Disease Active M ethyajaira jd anemia jd anemia 2-15 st due to due to 00:00: Hospita acute acute 00 l blood loss blood loss Thrombocyt Thrombocyt Disease Active M ethodi openia due openia due 2-15 st to blood to blood 00:00: Hospit a loss loss 00 l Atrial Atrial Disease Active Methodi fibrillati fibrillati 2-15 st on on 00:00: Hospita 00 l Bowel Bowel Disease Active Methodi obstructio obstructio 2-14 st n n 00:00: Hospita 00 l 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) 00:00: Hosp jaimee 00 l Skin Skin Problem Common cancer cancer [facility] 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 - [facility] disease disease [facility] Constipati Constipati Problem C ommon on on [facility] [id number] Mixed Problem Common hyperlipid [facility] emia [facility] [id number] 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 [facility] [id number] Subclinica Problem Com mon l Spirit hypothyroi - [facility] dism [facility] Hearing Hearing Problem Common loss loss [facility] Cardiac Cardiac Problem Common pacemaker pacemaker Spir it [facility] [id number] COPD with Problem Com mon acute Spirit exacerbati - [facility] on [facility] [id number] 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 - [facility] cular [facility] (CVA) [facility] Dysphagia Trouble Problem Commo n swallowing [facility] [id number] Allergic Problem Commo n rhinitis, Spirit unspecifie - [facility] d [facility] y, Medical unspecifie Center d trigger [id number] Chronic Problem Common bronchitis Spirit , - [facility] unspecifie [facility] chronic [facility] bronchitis Medica l type Center Swollen Bilateral Problem Commo n feet swelling [facility] of feet [facility] History of Status Problem Commo n surgery post Spirit surgery [facility] [id number] GERD Problem Common without Spirit esophagiti - [facility] s [facility] [id number] Tear of Problem Common left Spirit rotator - CHI cuff, St unspecifie kes d tear [facility] [id number] Chronic Problem Common obstructiv Spirit e - [facility] Center type [id number] Diverticul Problem Co mmon osis of Spirit sigmoid - [facility] colon [facility] Polyp Colon Problem Common colon polyp [facility] Finding of Encounter Problem Co mmon therapeuti for Spirit c drug therapeuti - CHI level c drug St level [facility] monitoring Medica l Center 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 Spir it [facility] [id number] Dry eye Problem Commo n [facility] [id number] Supplement Problem C ommon 07 al oxygen [facility] dependent [facility] Allergies, Adverse Reactions, Alerts Allergy Allergy Status Severity Reaction(s) Onset Inactive Treating Comm ents Source Name Type Date Date Clinician Morphine Propensi Active Other (See Change Me thodi ty to Comments) 04-[address] adverse 00:00: personali Hospit a reaction 00 ty l s to drug morphine morphine Active Unknown Commo n [facility] Family History Family Member Diagnosis Comments Start Date Stop Date Source Natural mother Heart attack [facility] Natural sister [facility] Social [facility] Social Habit Start Date Stop Date Quantity Comments Source Gender identity 2022-01-04 Identifies as Method ist 09:55:26 male gender [facility] (finding) History of Tobacco Common Spirit - Use [facility] Sex Assigned At Common Sp mahad - [facility] Sexual orientation Method ist Hospital Alcohol intake 2021-11-02 2021-11-02 Current Sikhism 00:00:00 00:00:00 non-drinker of Hospital alcohol (finding) History of Social 2021-11-02 2021-11-[address] function 00:00:00 00:00:00 Hospital Cigarettes smoked 2017-06-26 2017-06-[address] current (pack per 00:00:00 00:00:00 Hospita l day) - Reported Cigarette 2017-06-26 2017-06-26 Sikhism pack-years 00:00:00 00:00:00 Hospital Tobacco use and 2017-06-26 2017-06-26 Former smokeless Met hodist exposure 00:00:00 00:00:00 tobacco user Hospital Smoking Status Start Date Stop Date Source Former Smoker 2022-03-08 00:00:00 2022-03-08 00:00:00 Common S pirit - [facility] Medications Ordered Filled Start Stop Current Ordering Indication Dosage Frequency Signature Comments Components Source Medication Medication Date Date Medication? Clinician (SIG) Name Name warfarin Yes TAKE ONE Metho di (Jantoven) 4-06 (1) st 5 MG tablet 00:00: TABLET(S) H ospita 00 BY MOUTH l ONCE A DAY. montelukast Yes 10mg QD Take 1 Meth yajaira (SINGULAIR) 2-07 tablet (10 st 10 mg 14:09: mg total) Hospita tablet 37 by mouth l nightly. ALBUTEROL Yes Inhale as Met hodi SULFATE 2-[address] INHL 14:09: Hospita 37 l gabapentin 2021-04 Yes 300mg Q.5D Take 1 Meth yajaira (NEURONTIN) 1-[address] 300 mg 00:00: (300 mg Hospita capsule 00 total) by l mouth 2 (two) times a day. enoxaparin 2021-04- No INJECT Meth yajaira (Lovenox) 014 02-[address] 80 mg/0.8 00:00: 00:00 (70MG) Hospi ta mL syringe 00 :00 UNDER THE l SKIN 2 TIMES A DAY levalbutero 2021- No 1{puff} Q4H Inhale 1-2 Methodi l (XOPENEX 7-13 07-[address] HFA) 45 07:34: 00:00 every 4 Hospit a mcg/actuati 37 :00 (four) l on inhaler hours as needed for wheezing. fluticasone 2021- No Inhale. Me thodi /umeclidin/ 10-30- st vilanter 10:41: 00:00 Hospita (TRELEGY 13 :00 l ELLIPTA INHL) formoterol 2021- No 20ug Q.5D Take 20 Met hodi fumarate 10-18-[address] (PERFOROMIS 13:11: 00:00 nebulizati Hospita T) 20 mcg/2 39 :00 on 2 (two) l mL times a nebulizer day. solution budesonide No .5mg Q.5D Take 0.5 Me thodi (PULMICORT) 10-18 06-[address] 0.5 mg/2 mL 13:11: 00:00 nebulizati Hospita nebulizer 00 :00 on 2 (two) l solution times a day. warfarin No 5mg QD Take 5 mg Met hodi (COUMADIN) 10-18- by mouth st 5 MG tablet 13:10: 00:00 daily. Hos brittany 37 :00 Take 1 l tablet (5mg) by mouth daily for 30 days. warfarin No TAKE ONE Meth yajaira (Jantoven) 4- 04-06 (1) st 5 MG tablet 00:00: 00:00 TABLET(S) Hospita 00 :00 BY MOUTH l ONCE A DAY. warfarin No TAKE ONE Meth yajaira (Jantoven) 10-16 06-27 (1) st 5 MG tablet 00:00: 00:00 TABLET(S) Hospita 00 :00 BY MOUTH l ONCE A DAY. SPIRIVA No 2{puff} QD Inhale 2 Me thodi RESPIMAT 2 06-[address] 2.5 00:00: 00:00 daily. Hospita mcg/actuati 00 :00 l on mist Nasacort AQ Nasacort AQ Yes Bennett 1 puff in Common Alexander each [facility] nostril [facility] Spiriva Spiriva Yes Bennett 2 puffs Comm on Respimat Respimat Alexander Spirit [facility] Perforomist Perforomist Yes Bennett 2 ml Common Alexander Spirit [facility] Coumadin Coumadin Yes Bennett 1 tablet C ommon Alexander [facility] Pulmicort Pulmicort Yes Bennett 2 ml Com mon Alexander Spirit [facility] Singulair Singulair Yes Bennett 1 tablet Common Alexanedr in the Spirit evening [facility] Levalbutero Levalbutero Yes Bennett 3 ml Common l HCl l HCl Alexander [facility] - [facility] Levobunolol Levobunolol Yes Bennett 1 drop Common HCl HCl Alexander into Spirit affected - [facility] eye [facility] Coumadin 5 Coumadin 5 No 1{table QD Coumadin 5 MG MG t} MG Levalbutero Levalbutero No 3{ml} TID Levalbuter l HCl 1.25 l HCl 1.25 ol HCl MG/3ML MG/3ML 1.25 MG/3ML Singulair Singulair No 1{table QD Singulair 10 MG 10 MG t_in_th 10 MG e_eveni ng} Trelegy Trelegy No 1{puff} QD Trelegy Ellipta Ellipta Ellipta 100-62.5-25 100-62.5-25 100-62.5-2 MCG/INH MCG/INH 5 MCG/INH Coumadin 5 Coumadin 5 No 1{table QD Coumadin 5 MG MG t} MG Levalbutero Levalbutero No 3{ml} TID Levalbuter l HCl 1.25 l HCl 1.25 ol HCl MG/3ML MG/3ML 1.25 MG/3ML Singulair Singulair No 1{table QD Singulair 10 MG 10 MG t_in_th 10 MG e_eveni ng} Trelegy Trelegy No 1{puff} QD Trelegy Ellipta Ellipta Ellipta 100-62.5-25 100-62.5-25 100-62.5-2 MCG/INH MCG/INH 5 MCG/INH Coumadin 5 Coumadin 5 No 1{table QD Coumadin 5 MG MG t} MG Levalbutero Levalbutero No 3{ml} TID Levalbuter l HCl 1.25 l HCl 1.25 ol HCl MG/3ML MG/3ML 1.25 MG/3ML Singulair Singulair No 1{table QD Singulair 10 MG 10 MG t_in_th 10 MG e_eveni ng} Trelegy Trelegy No 1{puff} QD Trelegy Ellipta Ellipta Ellipta 100-62.5-25 100-62.5-25 100-62.5-2 MCG/INH MCG/INH 5 MCG/INH Coumadin 5 Coumadin 5 No 1{table QD Coumadin 5 MG MG t} MG Levalbutero Levalbutero No 3{ml} TID Levalbuter l HCl 1.25 l HCl 1.25 ol HCl MG/3ML MG/3ML 1.25 MG/3ML Singulair Singulair No 1{table QD Singulair 10 MG 10 MG t_in_th 10 MG e_eveni ng} Trelegy Trelegy No 1{puff} QD Trelegy Ellipta Ellipta Ellipta 100-62.5-25 100-62.5-25 100-62.5-2 MCG/INH MCG/INH 5 MCG/INH Coumadin 5 Coumadin 5 No 1{table QD Coumadin 5 MG MG t} MG Levalbutero Levalbutero No 3{ml} TID Levalbuter l HCl 1.25 l HCl 1.25 ol HCl MG/3ML MG/3ML 1.25 MG/3ML Singulair Singulair No 1{table QD Singulair 10 MG 10 MG t_in_th 10 MG e_eveni ng} Trelegy Trelegy No 1{puff} QD Trelegy Ellipta Ellipta Ellipta 100-62.5-25 100-62.5-25 100-62.5-2 MCG/INH MCG/INH 5 MCG/INH Coumadin 5 Coumadin 5 No 1{table QD Coumadin 5 MG MG t} MG Levalbutero Levalbutero No 3{ml} TID Levalbuter l HCl 1.25 l HCl 1.25 ol HCl MG/3ML MG/3ML 1.25 MG/3ML Singulair Singulair No 1{table QD Singulair 10 MG 10 MG t_in_th 10 MG e_eveni ng} Trelegy Trelegy No 1{puff} QD Trelegy Ellipta Ellipta Ellipta 100-62.5-25 100-62.5-25 100-62.5-2 MCG/INH MCG/INH 5 MCG/INH Coumadin 5 Coumadin 5 No 1{table QD Coumadin 5 MG MG t} MG Levalbutero Levalbutero No 3{ml} TID Levalbuter l HCl 1.25 l HCl 1.25 ol HCl MG/3ML MG/3ML 1.25 MG/3ML Singulair Singulair No 1{table QD Singulair 10 MG 10 MG t_in_th 10 MG e_eveni ng} Trelegy Trelegy No 1{puff} QD Trelegy Ellipta Ellipta Ellipta 100-62.5-25 100-62.5-25 100-62.5-2 MCG/INH MCG/INH 5 MCG/INH Coumadin 5 Coumadin 5 No 1{table QD Coumadin 5 MG MG t} MG Levalbutero Levalbutero No 3{ml} TID Levalbuter l HCl 1.25 l HCl 1.25 ol HCl MG/3ML MG/3ML 1.25 MG/3ML Singulair Singulair No 1{table QD Singulair 10 MG 10 MG t_in_th 10 MG e_eveni ng} Trelegy Trelegy No 1{puff} QD Trelegy Ellipta Ellipta Ellipta 100-62.5-25 100-62.5-25 100-62.5-2 MCG/INH MCG/INH 5 MCG/INH Albuterol Albuterol No Albuterol Trelegy Trelegy No 1{puff} QD Trelegy Ellipta Ellipta Ellipta 100-62.5-25 100-62.5-25 100-62.5-2 MCG/INH MCG/INH 5 MCG/INH Singulair Singulair No 1{table QD Singulair 10 MG 10 MG t_in_th 10 MG e_eveni ng} Coumadin 5 Coumadin 5 No 1{table QD Coumadin 5 MG MG t} MG Levalbutero Levalbutero No 3{ml} TID Levalbuter l HCl 1.25 l HCl 1.25 ol HCl MG/3ML MG/3ML 1.25 MG/3ML Albuterol Albuterol No Albuterol Trelegy Trelegy No 1{puff} QD Trelegy Ellipta Ellipta Ellipta 100-62.5-25 100-62.5-25 100-62.5-2 MCG/INH MCG/INH 5 MCG/INH Singulair Singulair No 1{table QD Singulair 10 MG 10 MG t_in 10 MG e_eveni ng} Coumadin 5 Coumadin 5 No 1{table QD Coumadin 5 MG MG t} MG Levalbutero Levalbutero No 3{ml} TID Levalbuter l HCl 1.25 l HCl 1.25 ol HCl MG/3ML MG/3ML 1.25 MG/3ML Zinc Zinc No Zinc Levalbutero Levalbutero No 3{ml} TID Levalbuter l HCl 1.25 l HCl 1.25 ol HCl MG/3ML MG/3ML 1.25 MG/3ML Trelegy Trelegy No 1{puff} QD Trelegy Ellipta Ellipta Ellipta 100-62.5-25 100-62.5-25 100-62.5-2 MCG/INH MCG/INH 5 MCG/INH Albuterol Albuterol No Albuterol Singulair Singulair No 1{table QD Singulair 10 MG 10 MG t_in 10 MG e_eveni ng} Vitamin B12 Vitamin B12 No Vitamin B12 Vitamin C Vitamin C No Vitamin C Coumadin 5 Coumadin 5 No 1{table QD Coumadin 5 MG MG t} MG Zinc Zinc No Zinc Levalbutero Levalbutero No 3{ml} TID Levalbuter l HCl 1.25 l HCl 1.25 ol HCl MG/3ML MG/3ML 1.25 MG/3ML Trelegy Trelegy No 1{puff} QD Trelegy Ellipta Ellipta Ellipta 100-62.5-25 100-62.5-25 100-62.5-2 MCG/INH MCG/INH 5 MCG/INH Albuterol Albuterol No Albuterol Singulair Singulair No 1{table QD Singulair 10 MG 10 MG t_in 10 MG e_eveni ng} Vitamin B12 Vitamin B12 No Vitamin B12 Vitamin C Vitamin C No Vitamin C Coumadin 5 Coumadin 5 No 1{table QD Coumadin 5 MG MG t} MG Trelegy Trelegy No 1{puff} QD Trelegy Ellipta Ellipta Ellipta 100-62.5-25 100-62.5-25 100-62.5-2 MCG/INH MCG/INH 5 MCG/INH Levalbutero Levalbutero No 3{ml} TID Levalbuter l HCl 1.25 l HCl 1.25 ol HCl MG/3ML MG/3ML 1.25 MG/3ML Coumadin 5 Coumadin 5 No 1{table QD Coumadin 5 MG MG t} MG Singulair Singulair No 1{table QD Singulair 10 MG 10 MG t_in_th 10 MG e_eveni ng} Trelegy Trelegy No 1{puff} QD Trelegy Ellipta Ellipta Ellipta 100-62.5-25 100-62.5-25 100-62.5-2 MCG/INH MCG/INH 5 MCG/INH Levalbutero Levalbutero No 3{ml} TID Levalbuter l HCl 1.25 l HCl 1.25 ol HCl MG/3ML MG/3ML 1.25 MG/3ML Coumadin 5 Coumadin 5 No 1{table QD Coumadin 5 MG MG t} MG Singulair Singulair No 1{table QD Singulair 10 MG 10 MG t_in_th 10 MG e_eveni ng} Trelegy Trelegy No 1{puff} QD Trelegy Ellipta Ellipta Ellipta 100-62.5-25 100-62.5-25 100-62.5-2 MCG/INH MCG/INH 5 MCG/INH Levalbutero Levalbutero No 3{ml} TID Levalbuter l HCl 1.25 l HCl 1.25 ol HCl MG/3ML MG/3ML 1.25 MG/3ML Coumadin 5 Coumadin 5 No 1{table QD Coumadin 5 MG MG t} MG Singulair Singulair No 1{table QD Singulair 10 MG 10 MG t_in_th 10 MG e_eveni ng} Trelegy Trelegy No 1{puff} QD Trelegy Ellipta Ellipta Ellipta 100-62.5-25 100-62.5-25 100-62.5-2 MCG/INH MCG/INH 5 MCG/INH Levalbutero Levalbutero No 3{ml} TID Levalbuter l HCl 1.25 l HCl 1.25 ol HCl MG/3ML MG/3ML 1.25 MG/3ML Coumadin 5 Coumadin 5 No 1{table QD Coumadin 5 MG MG t} MG Singulair Singulair No 1{table QD Singulair 10 MG 10 MG t_in_th 10 MG e_eveni ng} Coumadin 5 Coumadin 5 No 1{table QD Coumadin 5 MG MG t} MG Levalbutero Levalbutero No 3{ml} TID Levalbuter l HCl 1.25 l HCl 1.25 ol HCl MG/3ML MG/3ML 1.25 MG/3ML Trelegy Trelegy No 1{puff} QD Trelegy Ellipta Ellipta Ellipta 100-62.5-25 100-62.5-25 100-62.5-2 MCG/INH MCG/INH 5 MCG/INH Gabapentin Gabapentin No 2{capsu QD Gabapentin 300 MG 300 MG le} 300 MG Gabapentin Gabapentin No Gabapentin Singulair Singulair No 1{table QD Singulair 10 MG 10 MG t_in_th 10 MG e_eveni ng} Pantoprazol Pantoprazol No 1{table QD Pantoprazo e Sodium 40 e Sodium 40 t} le Sodium MG MG 40 MG Coumadin 5 Coumadin 5 No 1{table QD Coumadin 5 MG MG t} MG Levalbutero Levalbutero No 3{ml} TID Levalbuter l HCl 1.25 l HCl 1.25 ol HCl MG/3ML MG/3ML 1.25 MG/3ML Trelegy Trelegy No 1{puff} QD Trelegy Ellipta Ellipta Ellipta 100-62.5-25 100-62.5-25 100-62.5-2 MCG/INH MCG/INH 5 MCG/INH Gabapentin Gabapentin No 2{capsu QD Gabapentin 300 MG 300 MG le} 300 MG Gabapentin Gabapentin No Gabapentin Singulair Singulair No 1{table QD Singulair 10 MG 10 MG t_in_th 10 MG e_eveni ng} Pantoprazol Pantoprazol No 1{table QD Pantoprazo e Sodium 40 e Sodium 40 t} le Sodium MG MG 40 MG Trelegy Trelegy No 1{puff} QD Trelegy Ellipta Ellipta Ellipta 100-62.5-25 100-62.5-25 100-62.5-2 MCG/INH MCG/INH 5 MCG/INH Levalbutero Levalbutero No 3{ml} TID Levalbuter l HCl 1.25 l HCl 1.25 ol HCl MG/3ML MG/3ML 1.25 MG/3ML Coumadin 5 Coumadin 5 No 1{table QD Coumadin 5 MG MG t} MG Singulair Singulair No 1{table QD Singulair 10 MG 10 MG t_in_th 10 MG e_eveni ng} Coumadin 5 Coumadin 5 No 1{table QD Coumadin 5 MG MG t} MG Levalbutero Levalbutero No 3{ml} TID Levalbuter l HCl 1.25 l HCl 1.25 ol HCl MG/3ML MG/3ML 1.25 MG/3ML Singulair Singulair No 1{table QD Singulair 10 MG 10 MG t_in_th 10 MG e_eveni ng} Trelegy Trelegy No 1{puff} QD Trelegy Ellipta Ellipta Ellipta 100-62.5-25 100-62.5-25 100-62.5-2 MCG/INH MCG/INH 5 MCG/INH Vital Signs Vital Name Observation Time Observation Value Comments Source height 2022-03-08 11:00:00 71 [in_i] [facility] weight 2022-03-08 11:00:00 163.4 [lb_av] [facility] temperature 2022-03-08 11:00:00 96.2 [degF] [facility] bmi 2022-03-08 11:00:00 22.79 kg/m2 [facility] oximetry 2022-03-08 11:00:00 97 % [facility] respiratory rate 2022-03-08 11:00:00 17 /min Comm on [facility] blood pressure 2022-03-08 11:00:00 128 mm[Hg] Common [facility] - systolic [facility] blood pressure 2022-03-08 11:00:00 62 mm[Hg] [facility] - diastolic [facility] height 2021-12-07 09:40:00 71 [in_i] [facility] weight 2021-12-07 09:40:00 162.5 [lb_av] Common [facility] - [facility] temperature 2021-12-07 09:40:00 98.4 [degF] Common S pirit [facility] bmi 2021-12-07 09:40:00 22.66 kg/m2 [facility] oximetry 2021-12-07 09:40:00 95 % Common S pirit [facility] respiratory rate 2021-12-07 09:40:00 17 /min Comm on [facility] blood pressure 2021-12-07 09:40:00 117 mm[Hg] Common [facility] - systolic [facility] blood pressure 2021-12-07 09:40:00 60 mm[Hg] Common [facility] - diastolic [facility] height 2021-12-07 10:20:00 71 [in_i] Common S [facility] weight 2021-12-07 10:20:00 162.5 [lb_av] [facility] temperature 2021-12-07 10:20:00 98.4 [degF] Common S [facility] bmi 2021-12-07 10:20:00 22.66 kg/m2 Common [facility] oximetry 2021-12-07 10:20:00 95 % Common S [facility] respiratory rate 2021-12-07 10:20:00 17 /min Comm on [facility] blood pressure 2021-12-07 10:20:00 117 mm[Hg] Common [facility] - systolic [facility] blood pressure 2021-12-07 10:20:00 60 mm[Hg] Common Spirit - diastolic [facility] height 2021-10-06 15:20:00 71 [in_i] Common S [facility] weight 2021-10-06 15:20:00 162.6 [lb_av] Common [facility] temperature 2021-10-06 15:20:00 98.1 [degF] Common S pirit [facility] bmi 2021-10-06 15:20:00 22.68 kg/m2 [facility] oximetry 2021-10-06 15:20:00 96 % [facility] S [facility] respiratory rate 2021-10-06 15:20:00 16 /min Comm on [facility] blood pressure 2021-10-06 15:20:00 112 mm[Hg] Common [facility] - systolic [facility] blood pressure 2021-10-06 15:20:00 60 mm[Hg] Common [facility] - diastolic [facility] height 2021-08-10 09:30:00 71 [in_i] Common [facility] weight 2021-08-10 09:30:00 164.4 [lb_av] [facility] temperature 2021-08-10 09:30:00 97.4 [degF] [facility] bmi 2021-08-10 09:30:00 22.93 kg/m2 [facility] oximetry 2021-08-10 09:30:00 97 % [facility] respiratory rate 2021-08-10 09:30:00 17 /min Comm on [facility] blood pressure 2021-08-10 09:30:00 137 mm[Hg] Common [facility] - systolic [facility] blood pressure 2021-08-10 09:30:00 62 mm[Hg] Common [facility] - diastolic [facility] height 2021-01-26 10:00:00 71 [in_i] [facility] weight 2021-01-26 10:00:00 161.8 [lb_av] [facility] temperature 2021-01-26 10:00:00 97.5 [degF] Common [facility] bmi 2021-01-26 10:00:00 22.56 kg/m2 [facility] oximetry 2021-01-26 10:00:00 96 % Common S [facility] respiratory rate 2021-01-26 10:00:00 16 /min Comm on [facility] blood pressure 2021-01-26 10:00:00 133 mm[Hg] Common [facility] systolic [facility] blood pressure 2021-01-26 10:00:00 63 mm[Hg] [facility] - diastolic [facility] bmi 2021-01-26 09:50:00 22.56 kg/m2 [facility] oximetry 2021-01-26 09:50:00 96 % [facility] respiratory rate 2021-01-26 09:50:00 16 /min Comm on [facility] blood pressure 2021-01-26 09:50:00 133 mm[Hg] Common [facility] - systolic [facility] blood pressure 2021-01-26 09:50:00 63 mm[Hg] Common [facility] - diastolic [facility] height 2021-01-26 09:50:00 71 [in_i] [facility] weight 2021-01-26 09:50:00 161.8 [lb_av] [facility] temperature 2021-01-26 09:50:00 97.5 [degF] [facility] Systolic blood 2022-05-31 20:02:00 118 mm[Hg] [facility] pressure Diastolic blood 2022-05-31 20:02:00 71 mm[Hg] [facility] pressure Heart rate 2022-05-31 20:02:00 77 /min [facility] Body height 2022-05-31 20:02:00 180.3 cm [facility] Body weight 2022-05-31 20:02:00 74.39 kg [facility] BMI 2022-05-31 20:02:00 22.87 kg/m2 [facility] Oxygen saturation in 2022-01-21 19:09:00 99 /min [facility] Arterial blood by Pulse oximetry Procedures Procedure Date / Time Performed Performing Clinician Alyce e PROTHROMBIN TIME WITH 2022-08-31 00:00:00 Provider, Not In [facility] PROTHROMBIN TIME WITH 2022-08-01 00:00:00 Provider, Not In [facility] PROTHROMBIN TIME WITH 2022-07-01 00:00:00 Provider, Not In [facility] PROTHROMBIN TIME WITH 2022-06-03 00:00:00 Provider, Not In [facility] ECG 12-LEAD 2022-05-31 20:08:13 Marilyn Mejias Ho spital PROTHROMBIN TIME WITH 2022-05-03 00:00:00 Provider, Not In [facility] PROTHROMBIN TIME WITH 2022-04-19 00:00:00 Provider, Not In [facility] PROTHROMBIN TIME WITH 2022-03-21 00:00:00 Provider, Not In [facility] PROTHROMBIN TIME WITH 2022-03-07 00:00:00 Provider, Not In [facility] PROTHROMBIN TIME WITH 2022-02-16 00:00:00 Provider, Not In [facility] CV MRI STRESS TEST W 2022-01-21 19:50:57 Brandie Becerra [facility] CONTRAST ESTIMATED GFR 2022-01-21 18:58:00 Brandie Becerra spital POC PANEL 2022-01-21 18:58:00 Brandie Becerra spital PROTHROMBIN TIME WITH 2021-12-17 00:00:00 Provider, Not In [facility] PROTHROMBIN TIME WITH 2021-11-16 00:00:00 Provider, Not In [facility] TTE COMPLETE, W 2021-11-15 21:28:39 Brandie Becerra spital CONTRAST, W DOPPLER ([id number]) ECG 12-LEAD 2021-11-02 20:00:36 Brandie Becerra spital PROTHROMBIN TIME WITH 2021-10-15 00:00:00 Provider, Not In [facility] Plan of Care Planned Activity Planned Date Details Comments Source Future Scheduled 2022-09-06 SHINGLES VACCINES (1 Met [facility] Test 15:43:58 of 2) [code = SHINGLES VACCINES (1 of 2)] Future Scheduled 2022-09-06 65+ PNEUMOCOCCAL [facility] Test 15:43:58 VACCINE (2 - PCV) [code = 65+ PNEUMOCOCCAL VACCINE (2 - PCV)] Future Scheduled 2022-09-06 COVID-19 VACCINE ([facility] 15:43:58 Booster for Moderna series) [code = COVID-19 VACCINE (3 - Booster for Moderna series)] Future Scheduled 2022-09-06 INFLUENZA VACCINE [facility] Test 15:43:58 [code = INFLUENZA VACCINE] Encounters Start End Encounter Admission Attending Care Care Encounter Source Date/Time Date/Time Type Type Clinicians Facility Department ID 2022-09-01 Outpatient Alexander, STLMLC STLC [id number] Common 11:36:00 Bennett [address] [facility] 2022-03-04 Outpatient Alexander, STLMLC STLC [id number] Common 09:35:00 Bennett 54012 [facility] 2022-01-11 Outpatient Alexander, STLC STLC [id number] Common 14:31:00 Bennett [facility] 2021-12-06 Outpatient Alexander, STLMLC STLC [id number] Common 11:10:00 Bennett [facility] 2021-10-06 Outpatient Alexander, STLMLC STLC [id number] Common 15:15:00 Bennett [facility] 2021-05-19 Outpatient Alexander, STLMLC STLC [id number] Common 13:55:48 Bennett [facility] 2021-05-19 Outpatient Alexander, STLMLC STLC [id number] Common 13:31:01 Bennett [facility] 2021-05-19 Outpatient Alexander, STLMLC STLC [id number] Common 13:13:43 Bennett [address]1141 [facility] 2021-05-19 Outpatient Alexander, STLC STLC [id number] Common 12:48:46 Bennett 27705 [facility] 2021-05-19 Outpatient Alexander, STLMLC STLC [id number] Common 11:16:30 Bennett 19297 [facility] 2021-05-19 Outpatient Alexander, STLMLC [facility] [id number] Common 11:09:34 [facility] [address] [facility] 2021-05-19 Outpatient Alexander, STLC [facility] [id number] Common 11:00:07 [facility] [address]84 [facility] 2021-05-19 [facility] [id number] Common 10:57:23 [facility] 11471 [facility] 2022-08-31 2022-08-31 Telephone Laz, 1.2.840.1 [id number] 2100 [id number] Methodi 00:00:00 00:00:00 Jazlyn A 61404.1.[address] 3.430.2.7 Hospit a .3.064688 l .8 2022-08-26 2022-08-26 Orders Laz, 1.2.840.1 [id number] 7101 Methodi 00:00:00 00:00:00 Only Jazlyn A 34646.1.[address] 3.430.2.7 Hospit a .3.547415 l .8 2022-08-15 2022-08-15 Telephone Mejias, 1.2.840.1 [id number] 2100 019624 Methodi 00:00:00 00:00:00 Marilyn RivasSaqib [address].1.[address] 3.430.2.7 Hospit a .3.727992 l .8 2022-08-11 2022-08-11 Telephone Laz, 1.2.840.1 [id number] 2100 384995 Methodi 00:00:00 00:00:00 Jazlyn A [address].1.[address] 3.430.2.7 Hospit a .3.103062 l .8 2022-07-29 2022-07-29 Orders Laz, 1.2.840.1 [id number] 6844 Methodi 00:00:00 00:00:00 Only Jazlyn A 89698.1.[address] 3.430.2.7 Hospit a .3.510893 l .8 2022-07-28 2022-07-28 Refill Kyung, 1.2.840.1 [id number] 9656 Methodi 00:00:00 00:00:00 Marilyn Martinez 70036.1.[address] 3.430.2.7 Hospit a .3.887465 l .8 2022-07-01 2022-07-01 Telephone Laz, 1.2.840.1 [id number] 2100 601542 Methodi 00:00:00 00:00:00 Jazlyn A [address].1.[address] 3.430.2.7 Hospit a .3.260339 l .8 2022-07-01 2022-07-01 Orders Laz, 1.2.840.1 [id number] 937714 4948 Methodi 00:00:00 00:00:00 Only Jazlyn A 01556.1.[address] 3.430.2.7 Hospit a .3.140100 l .8 2022-06-03 2022-06-03 Telephone Laz, 1.2.840.1 [id number] 2100 909382 Methodi 00:00:00 00:00:00 Jazlyn A [address]687.1.[address] 3.430.2.7 Hospit a .3.878149 l .8 2022-06-03 2022-06-03 Orders Laz, 1.2.840.1 [id number] 477077 6315 Methodi 00:00:00 00:00:00 Only Jazlyn A 33529.1.[address] 3.430.2.7 Hospit a .3.766836 l .8 2022-05-31 2022-05-31 Office Mejias, 1.2.840.1 [id number] 0832 Methodi 13:10:00 16:12:17 Visit Marilyn Martinez 10165.1.[address] 3.430.2.7 Hospit a .3.331273 l .8 2022-05-31 2022-05-31 [facility] [id number] [place] 00:00:00 00:00:00 MARILYN [address] 2022-05-31 2022-05-31 Travel 1.2.840.1 1.2.975.638 7459 784952 Methodi 00:00:00 00:00:[address] 3.430.2.7 0.2.7.3.698 Ho spita .3.782621 084.8 l .8 2022-05-06 2022-05-06 Orders Laz, 1.2.840.1 [id number] 884251 1175 Methodi 00:00:00 00:00:00 Only Jazlyn A [address]59.1.[address] 3.430.2.7 Hospit a .3.878426 l .8 2022-05-03 2022-05-03 Telephone Laz, 1.2.840.1 [id number] 2099 014466 Methodi 00:00:00 00:00:00 Jazlyn A [address]45.1.[address] 3.430.2.7 Hospit a .3.824137 l .8 2022-04-28 2022-04-28 (TEL) [facility] [id number] Co mmon 00:00:00 00:00:00 [facility] 2022-04-19 2022-04-19 Telephone Boogie, 1.2.840.1 [id number] 2099 [id number] Methodi 00:00:00 00:00:[address] 3.430.2.7 Hospit a .3.890275 l .8 2022-04-08 2022-04-08 Orders Laz, 1.2.840.1 [id number] 148866 0623 Methodi 00:00:00 00:00:00 Only Jazlyn A 50569.1.[address] 3.430.2.7 Hospit a .3.897901 l .8 2022-03-21 2022-03-21 Telephone Laz, 1.2.840.1 [id number] 2099 141365 Methodi 00:00:00 00:00:00 Jazlyn A [address].1.[address] 3.430.2.7 Hospit a .3.544051 l .8 2022-03-21 2022-03-21 Telephone Boogei, 1.2.840.1 [id number] 2100 462332 Methodi 00:00:00 00:00:[address] 3.430.2.7 Hospit a .3.813302 l .8 2022-03-11 2022-03-11 Telephone Laz, 1.2.840.1 [id number] 2100 718924 Methodi 00:00:00 00:00:00 Jazlyn Mascorro [address].1.[address] 3.430.2.7 Hospit a .3.470361 l .8 2022-03-11 2022-03-11 Orders Laz, 1.2.840.1 [id number] 712339 9231 Methodi 00:00:00 00:00:00 Only Jazlyn Mascorro 80421.1.[address] 3.430.2.7 Hospit a .3.796438 l .8 2022-03-08 2022-03-08 [facility] [id number] Co mmon 00:00:00 00:00:00 VISIT [facility] LEVEL 4 [facility] 2022-02-22 2022-02-22 (TEL) STLMLC STLC [id number] Co mmon 00:00:00 00:00:00 [facility] 2022-02-16 2022-02-16 Telephone Laz, 1.2.840.1 [id number] 2100 [id number] Methodi 00:00:00 00:00:00 Jazlyn Mascorro [address] 3.430.2.7 Hospit a .3.844100 l .8 2022-02-15 2022-02-15 CAV Kyleigh 2.16.840. 2.16.840.1. CLAC [id number] Devoted 18:00:00 18:30:00 Revisit: Robin 1.556102. 820900.4.6. EGG Medical Gap 4.6.41169 [id number] Closure & 93074 Clinical Check-in 2022-02-11 2022-02-11 Orders Laz, 1.2.840.1 [id number] 2953 Methodi 00:00:00 00:00:00 Only Jazlyn Mascorro 22117.1.[address] 3.430.2.7 Hospit a .3.101465 l .8 2022-02-04 2022-02-04 Telephone Laz, 1.2.840.1 [id number] 2100 327661 Methodi 00:00:00 00:00:00 Jazlyn Mascorro [address] 3.430.2.7 Hospit a .3.837580 l .8 2022-01-21 2022-01-21 [facility] 1.2.840.1 [id number] 2 [id number] Methodi 12:48:58 23:59:00 Encounter Jose Carlos 07253.1.[address] 3.430.2.7 Hospit a .3.596680 l .8 2022-01-21 2022-01-21 Outpatient [place] [id number] [place] 00:00:00 00:00:[address] 2022-01-21 2022-01-21 Travel 1.2.840.1 1.2.049.410 0207 511019 Methodi 00:00:00 00:00:[address] 3.430.2.7 0.2.7.3.698 Ho spita .3.803527 084.8 l .8 2022-01-14 2022-01-14 [facility] [id number] 022 Devoted 00:00:00 00:00:00 0923 [facility] l [facility] 2022-01-14 2022-01-14 Outpatient Adams_R DMG [facility] [id number] 023 Devoted 00:00:00 00:00:00 0506 Medica l Group 2022-01-14 2022-01-14 Travel 1.2.840.1 1.2.877.984 6398 339861 Methodi 00:00:00 00:00:[address] 3.430.2.7 0.2.7.3.698 Ho spita .3.586323 084.8 l .8 2022-01-14 2022-01-14 Orders Laz, 1.2.840.1 [id number] 0916 Methodi 00:00:00 00:00:00 Only Jazlyn Mascorro 77728.1.[address] 3.430.2.7 Hospit a .3.922477 l .8 2022-01-13 2022-01-13 (TEL) STLMLC STLMLC [id number] Co mmon 00:00:00 00:00:00 [facility] 2022-01-06 2022-01-06 Telephone Jefe, 1.2.840.1 [id number] 2100 085281 Methodi 00:00:00 00:00:[address] 3.430.2.7 Hospit a .3.157738 l .8 2022-01-06 2022-01-06 Transcribe Jefe, 1.2.840.1 [id number] 472 [id number] Methodi 00:00:00 00:00:00 Orders Erika 89684.1.[address] 3.430.2.7 Hospit a .3.231222 l .8 2022-01-04 2022-01-04 Telemedici Brandie Becerra 1.2.840.1 [id number] Methodi 10:30:00 10:47:03 ne Jose Carlos 08360.1.[address] 3.430.2.7 Hospit a .3.170811 l .8 2022-01-04 2022-01-04 Outpatient BRANDIE BECERRA [facility] [id number] [place] 00:00:00 00:00:[address] 2021-12-30 2021-12-30 Care Sydnee 2.16.840. 2.16.840.1. CLAC [id number] [facility] 15:30:00 16:00:00 [employer] Caccamise 1.936417. 225686.4.6. YF8 [facility] 4.6.74977 [id number] 23549 2021-12-29 2021-12-29 Telephone Kyung 1.2.840.1 [id number] 2099 [id number] Methodi 00:00:00 00:00:00 Marilyn Martinez 39851.1.[address] 3.430.2.7 Hospit a .3.779141 l .8 2021-12-17 2021-12-17 Telephone Laz 1.2.840.1 [id number] 2099 447427 Methodi 00:00:00 00:00:00 Jazlyn Mascorro 75014.1.[address] 3.430.2.7 Hospit a .3.530039 l .8 2021-12-07 2021-12-07 OFFICE [facility]C [facility] [id number] Co mmon 00:00:00 00:00:00 VISIT Spirit ESTAB PT - CHI LEVEL 4 [facility] 2021-12-07 2021-12-07 SUB ANNUAL [facility] [id number] Common 00:00:00 00:00:00 MCR Spirit WELLNESS - CHI VISIT [facility] 2021-11-19 2021-11-19 Telephone Jefe, 1.2.840.1 [id number] 2099 [id number] Methodi 00:00:00 00:00:[address] 3.430.2.7 Hospit a .3.639628 l .8 2021-11-16 2021-11-16 Telephone Boogie 1.2.840.1 [id number] 2099 [id number] Methodi 00:00:00 00:00:[address] 3.430.2.7 Hospit a .3.211925 l .8 2021-11-15 2021-11-15 Outpatient BRANDIE BECERRA [facility] [id number] [place] 00:00:00 00:00:[address] 2021-11-15 2021-11-15 Travel 1.2.840.1 1.2.027.051 4291 [id number] Methodi 00:00:00 00:00:[address] 3.430.2.7 0.2.7.3.698 Ho spita .3.884414 084.8 l .8 2021-11-02 2021-11-07 Office Brandie Becerra 1.2.840.1 [id number] Methodi 15:30:00 19:05:[address]18[address] 3.430.2.7 Hospit a .3.156588 l .8 2021-11-05 2021-11-05 Outpatient Adams_R RINA HOFFMANG [id number] 022 Devoted 08:13:00 08:13:00 0715 Medica l Group 2021-11-02 2021-11-02 Outpatient BRANDIE BECERRA [facility] [id number] [place] 00:00:00 00:00:[address] 2021-11-02 2021-11-02 Travel 1.2.840.1 1.2.576.364 9320 [id number] Methodi 00:00:00 00:00:[address] 3.430.2.7 0.2.7.3.698 Ho spita .3.573600 084.8 l .8 2021-10-15 2021-10-15 Telephone Laz, 1.2.840.1 [id number] 2100 764691 Methodi 00:00:00 00:00:00 Jazlyn A [address]04.1.[address] 3.430.2.7 Hospit a .3.022810 l .8 2021-10-14 2021-10-14 (TEL) STLMLC STLMLC [id number] Co mmon 00:00:00 00:00:00 [facility] 2021-10-06 2021-10-06 OFFICE STLMLC STLMLC [id number] Co mmon 00:00:00 00:00:00 VISIT EST Spir it PT LEVEL 3 [facility] 2021-10-05 2021-10-05 (TEL) STLMLC STLMLC [id number] Co mmon 00:00:00 00:00:00 [facility] 2021-08-25 2021-08-25 Outpatient Adams_R YASMING DMG [id number] 022 Devoted 04:00:00 04:00:00 0504 Medica l Group 2021-08-10 2021-08-10 OFFICE STLMLC STLMLC [id number] Co mmon 00:00:00 00:00:00 VISIT [facility] LEVEL 4 [facility] 2021-07-20 2021-07-20 (TEL) STLMLC STLMLC [id number] Co mmon 00:00:00 00:00:00 [facility] 2021-06-11 2021-06-11 (TEL) STLMLC STLMLC [id number] Co mmon 00:00:00 00:00:00 [facility] 2021-06-07 2021-06-07 CAV Mckenzie 2.16.840. 2.16.840.1. CLAC [id number] Devoted 18:30:00 19:30:00 Farrell 1.674849. 096031.4.6. 3A2 Medical 4.6.56715 [id number] 2021-06-01 2021-06-01 Outpatient [facility] [id number] [address] [place] [address] 00:00:00 00:00:00 MARILYN [address] 2021-05-31 2021-05-31 Outpatient Adams_R DMG [facility] [id number] 022 Devoted 03:00:00 03:00:00 0207 Medica l Group 2021-05-18 2021-05-18 (TEL) STLMLC STLMLC [id number] Co mmon 00:00:00 00:00:00 [facility] 2021-05-18 2021-05-18 (TEL) STLMLC STLMLC [id number] Co mmon 00:00:00 00:00:00 [facility] 2021-05-11 2021-05-11 (TEL) STLMLC STLMLC [id number] Co mmon 00:00:00 00:00:00 [facility] 2021-03-10 2021-03-10 Outpatient DMG DMG [id number] 021 Devoted 08:31:00 08:31:00 1117 Medica l Group 2021-02-15 2021-02-15 Outpatient DMG DM [id number] 021 Devoted 08:01:00 08:01:00 [facility] Medica l Group 2021-01-28 2021-01-28 (TEL) STLMLC STLMLC [id number] Co mmon 00:00:00 00:00:00 [facility] 2021-01-26 2021-01-26 SUB ANNUAL STLMLC STLMLC [id number] Common 00:00:00 00:00:00 MCR [facility] VISIT [facility] 2021-01-26 2021-01-26 OFFICE STLMLC STLMLC [id number] Co mmon 00:00:00 00:00:00 VISIT [facility] LEVEL 4 [facility] 2020-10-05 2020-10-05 Outpatient STLMLC STLMLC [id number] Common 00:00:00 00:00:00 [facility] 2020-10-02 2020-10-02 Outpatient STLMLC STLMLC [id number] Common 00:00:00 00:00:00 [facility] 2020-10-01 2020-10-01 Outpatient STLMLC STLMLC [id number] Common 00:00:00 00:00:00 [facility] 2020-07-28 2020-07-28 Outpatient STLMLC STLMLC [id number] Common 00:00:00 00:00:00 [facility] 2020-06-02 2020-06-02 Outpatient [facility] [id number] [address] [place] [address] 00:00:00 00:00:00 MARILYN [address] 2020-05-25 2020-05-25 Outpatient STLMLC STLMLC [id number] Common 00:00:00 00:00:00 [facility] 2020-01-29 2020-01-29 Outpatient STLMLC STLMLC [id number] Common 00:00:00 00:00:00 [facility] 2020-01-29 2020-01-29 Outpatient STLMLC STLMLC [id number] Common 00:00:00 00:00:00 [facility] 2019-11-19 2019-11-19 Outpatient KYUNG, [facility] [id number] [place] 00:00:00 00:00:00 MARILYN [address] 2019-11-05 2019-11-05 Outpatient KYUNG, [facility] [id number] [place] 00:00:00 00:00:00 MARILYN [address] 2019-10-31 2019-10-31 Outpatient KYUNG, [facility] [id number] [place] 00:00:00 00:00:00 MARILYN [address] 2019-10-29 2019-10-29 Outpatient KYUNG, [facility] [id number] 475 [place] 00:00:00 00:00:00 MARILYN [address] 2019-10-07 2019-10-07 [facility] [id number] Common 13:15:00 13:15:00 [place] [address] [place] [address] [facility] 2019-07-24 2019-07-24 Outpatient [facility] [id number] Common 10:45:00 10:45:00 [place] [address] [facility] 2019-07-17 2019-07-17 Out[facility] [id number] Common 16:30:00 16:30:00 [place] [address] [place] [address] [facility] 2019-07-09 2019-07-09 Outpatient Saroj Olivares [facility] MRAD E00 [id number] [facility] 10:30:00 10:30:[address] [place] [address] 2019-06-17 2019-06-17 [facility] [id number] Common 09:00:00 09:00:00 [place] [address] [facility] 2019-06-03 2019-06-03 Out[facility] [id number] Common 10:47:00 10:47:00 [place] [address] [facility] 2019-05-17 2019-05-17 Out[facility] [id number] Common 12:43:00 12:43:00 [place] [address] [facility] 2019-05-03 2019-05-03 Outpatient [facility] [id number] Common 13:11:00 13:11:00 [place] [address] [facility] 2019-04-25 2019-04-25 Outpatient [facility] [id number] Common 08:45:00 08:45:00 [place] [address] [facility] 2019-01-22 2019-01-22 Outpatient [facility] [id number] Common 10:45:00 10:45:00 [place] [address] [facility] 2019-01-16 2019-01-16 Outpatient [facility] [id number] Common 11:54:00 11:54:00 [place] [address] [facility] 2018-11-05 2018-11-05 Outpatient [facility] [id number] Common 10:30:00 10:30:00 [place] [address] [facility] 2018-06-18 2018-06-18 Outpatient [facility] [id number] Common 10:30:00 10:30:00 t [facility] 2018-06-01 2018-06-01 Outpatient [facility] [id number] Common 09:30:00 09:30:00 [place] [address] [facility] 2018-05-21 2018-05-21 Outpatient [facility] [id number] Common 10:32:00 10:32:00 [place] [address] [facility] 2018-04-26 2018-04-26 Outpatient [facility] [id number] Common 16:35:00 16:35:00 [place] [address] [facility] 2018-01-29 2018-01-29 Outpatient [facility] [id number] Common 09:45:00 09:45:00 [place] [address] [facility] 2017-12-22 2017-12-22 Outpatient [facility] [id number] Common 13:23:00 13:23:00 [place] [address] [facility] 2017-12-14 2017-12-14 Out[facility] [id number] Common 16:33:00 16:33:00 [place] [address] [facility] 2017-12-08 2017-12-08 Outpatient [facility] [id number] Common 11:04:00 11:04:00 [place] [address] [facility] 2017-12-04 2017-12-04 Out[facility] [id number] Common 11:45:00 11:45:00 [place] [address] [facility] 2017-10-23 2017-10-23 Outpatient [facility] [id number] Common 13:00:00 13:00:00 [place] [address] [facility] 2017-10-11 2017-10-11 Outpatient [facility] [id number] Common 08:51:00 08:51:00 [place] [address] [facility] 2017-09-19 2017-09-19 Outpatient [facility] [id number] Common 08:30:00 08:30:00 [place] [address] [facility] 2017-08-15 2017-08-15 Outpatient [facility] [id number] Common 10:15:00 10:15:00 [place] [address] [place] [address] [facility] Results Test Description Test Time Test Comments Results Result Comments Source Prothrombin time with INR 2022-08-31 00:00:00 Test Item Value Reference Range Interpretation Comme nts INR (test code = 08544-2) [id number] 15:00:42 Test Item Value Reference Range Interpretation Comments Ventricular rate (test 64 code = 253) Atrial rate (test code 64 = 255) QRSD interval (test 90 code = 260) QT interval (test code 372 = 264) QTC interval (test code 383 = 265) QRS axis 1 (test code = 25 268) T wave axis (test code -25 = 270) EKG impression (test Atrial-paced code = 273) rhythm-Low voltage QRS-Nonspecific ST and T wave abnormality-Abnormal ECG-In automated comparison with ECG of 02-NOV-2021 15:00,-Electronic atrial pacemaker has replaced Sinus lzcqsa-Zzm-vypzchft change in ST segment in Anterior leads- [facility] [id number] 19:00:00 Test Item Value Reference Range Interpretation Comments POC creatinine (test 1.0 mg/dl 0.7-1.2 Operato r Name: Lucio code = 07940-7) Kecia ID: [id number] POC hematocrit (test 47 % 41-51 code = 4544-3) [facility] [id number] 19:00:00 Test Item Value Reference Range Interpretation Comments Estimated GFR (test 70 mL/min/1.73 m2 Caterg ory Units code = 03297-8) Interpretati onG1 >=90 Normal or highG 2 60-89 Mildly decrease dG3a 45-59 Mildly to moder ately xambyhxuxC3v 30 -44 Moderately to s everely decreasedG4 15- 29 Severely decreasedG5 <15 Kidney failureThe eGFR was calculated usin g the Chronic Kidney Disease Epidemiology Co llaboration (CKD-EPI) equat ion. Interpretation is based on recommendations of the National Kidney Foundation-Kidn ey Disease Outcomes Qualit y Initiative (NKF-KDOQI) pub lished in 2014. [facility]- XR FLUOROSCOPY 0-60 [id number] 12:38:00 FAX: Saroj Francois MD [phone] [place]: St: REG Name: JUSTEN BAUMAN [facility] : 1940 Age/S: 79/M [address] [facility] Unit #: [id number] Loc: [place]: [place] [id number] Acct: [id number] Dis Date: Status: REG CLI PHONE #: [phone] Exam Date: 07/09/2019 1141 FAX #: [phone] Reason: SOB,COPD,HYPOXEMIA........ EXAMS: CPT CODE: [id number] XR FLUOROSCOPY 0-60 MIN [id number] REASON FOR EXAM: Shortness of breath, diaphragm assessment. Fluoroscopy of the diaphragm, sniff test Fluoroscopy was used for 0.6 minutes, producing a total dose of 23.61 mGy. Routine breathing was pe rformed initially with fluoroscopic observation. The right diaphragm shows moderate excursion. The left diaphragm does not show significant movement. No Paradoxical contraction seen, either. The study from is assessed by the sniff maneuver. Good response for the right diaphragm seen. There is responsealso noted on the left, slightly blunted in degree. IMPRESSION: Very little left diaphragm excursionseen. The right diaphragm with contraction noted but decreased due to COPD changes. Location: U 19 at 1238 Reported and signed by: Mason Snyder M.D CC: Saroj Olivares MD Technologist: PATRICK ROSADO Trnscrd Date/Time/By: 07/09/2019 (6162) : By: [email or web address] PAGE 1 Signed Report FAX: Saroj Francois MD [phone] [place]: St: G Name: RASHAAD BAUMAN : 1940 Age/S: 79/M [address] [facility] Unit #: [id number] Loc: [place], [place]: [place] [id number] Acct: [id number] Dis Date: Status: REG CLI PHONE #: [phone] Exam Date: 07/09/2019 1141 FAX #: [phone] Reason: SOB,COPD,HYPOXEMIA........ EXAMS:CPT CODE: [id number] XR FLUOROSCOPY 0-60 MIN 27122 (Continued) Orig Print D/T: S: 07/09/2019 (1241) PAGE 2 Signed Report- XR CHEST 2 [id number] 11:37:00 FAX: Saroj Francois MD [phone] [place]: St: REG Name: JUSTEN BAUMAN [facility] : 1940 Age/S: 79/M [address] [facility] Unit #: [id number] [place]: [place] [address] Acct: [id number] Dis Date: Status: REG CLI PHONE #: [phone] Exam Date: 07/09/2019 1141 FAX #: Reason: SOB,COPD,HYPOXEMIA...... EXAMS: CPT CODE: [id number] XR CHEST 2 V 83780 Chest Radiographs, 2 views. Location: Clinical Indication: 79-year-old with dyspnea, COPD, and hypoxemia Comparison: None Findings: PA and lateral radiographs of the chest were obtained. Heart size is normal. There is a smoothly marginated masslike structure of the right cardiophrenic angle, measuring approximately 4.5 cm in craniocaudal dimension. There [...] of the lung bases. 3. No acute p neumonic infiltrate. at 1137 Reported and signed by: Mason Nichole M.D. CC: Saroj Olivares MD Technologist: PATRICK ROSADO Trnscrd Date/Time/By: 07/09/2019 (2821) : By: [email or web address] PAGE 1 Signed Report FAX: Saroj Francois MD [phone] [place]: St: REG --- Name: JUSTEN BAUMAN [facility] : 1940 Age/S: 79/M [address] [facility] Unit #: [id number] Loc: [place], [place]: [place] [address] Acct: [id number] Dis Date: Status: REG CLI PHONE #: [phone] Exam Date: 07/09/2019 1141 FAX #: [phone] Reason: SOB,COPD,HYPOXEMIA...... EXAMS: CPT CODE: [id number] XR CHEST 2 V 00745 (Continued) Orig Print D/T: S: 07/09/2019 (1632) PAGE 2 Signed Report
[2022-09-17] MEDS ORDERED: ONDANSETRON 4 MG/2 ML VIAL ONE (23:39)
[2022-09-17] MEDS ORDERED: FENTANYL CITR 100 MCG/2 ML ONE (23:39)
[2022-09-17] MEDS ORDERED: FAMOTIDINE 20 MG/2 ML VIAL IV ONE (23:39)
[2022-09-17] MEDS ORDERED: NA CHLORIDE 0.9% 1,000 ML ONE (23:40)
[2022-09-18 00:09] LABS: Hematocrit 41.5 % (39.6-49.0); Lymphocytes % 8.5 % (15.3-44.8); MCV 86.9 fL (80-100); MPV 8.8 fL (7.6-11.3); RBC Red Blood Cell Count 4.78 M/uL (4.33-5.43)
[2022-09-18 00:28] LABS: Albumin 3.6 g/dL (3.4-5.0); Bilirubin Total 0.5 mg/dL (0.2-1.0); Potassium 4.3 mEq/L (3.5-5.1); Protein, Total 7.4 g/dL (6.4-8.2)
[2022-09-18] MEDS ORDERED: METOCLOPRAMIDE 10 MG/2mL INJ ONE (01:20)
[2022-09-18] MEDS ORDERED: LIDOCAINE VISCOUS 2% SOLN 15 ML UDC ONE (01:21)
[2022-09-18] MEDS ORDERED: FENTANYL CITR 100 MCG/2 ML ONE ×2 (01:21→12:36)
--- NOTE | 2022-09-18 02:41 | ER ---
Nurse's Notes [facility] Name: Bharat Bauman Age: 82 yrs Sex: Male : 1940 Arrival Date: 09/17/2022 Time: 22:25 Bed 5 Private MD: Diagnosis: Incarcerated left inguinal hernia, small bowel obstruction, intractable vomiting Presentation: 09/17 22:32 Chief complaint: Patient states: abdominal pain of 10, with nausea onset [id number] pf1 after a severe coughing episode, LBM 1900 with diarrhea. Coronavirus screen: Vaccine status: Patient reports receiving the 2nd dose of the covid vaccine. Moderna Client denies travel out of the [place] in the last 14 days. At this time, the client does not indicate any symptoms associated with coronavirus-19. Ebola Screen: Patient negative for fever greater than or equal to 101.5 degrees Fahrenheit, and additional compatible Ebola Virus Disease symptoms. Initial Sepsis Screen: Does the patient meet any 2 criteria? No. Patient's initial sepsis screen is negative. Does the patient have a suspected source of infection? No. Patient's initial sepsis screen is negative. Risk Assessment: Do you want to hurt yourself or someone else? Patient reports no desire to harm self or others. 22:32 Method Of Arrival: Ambulatory pf1 22:32 Acuity: MELANIE 3 pf1 09/18 03:38 Onset of symptoms was September 17, 2022. as6 Historical: - Allergies: 09/17 22:39 Morphine; pf1 - PMHx: 22:39 Atrial Fib; COPD; CVA; Hypertension; Pacemaker; pf1 - PSHx: 22:39 umbilical hernia repair x 2; Cholecystectomy; back surgery; mitral valve repair; pf1 inguinal hernia; skin cancer removal; cataracts; - Immunization history:: Adult Immunizations up to date, Last tetanus immunization: < 5 years ago Pneumococcal vaccine is up to date, Flu vaccine is up to date. - Social history:: Smoking status: Patient/guardian denies using tobacco, the patient reports quitting approximately 48 years ago, Patient/guardian denies using alcohol, street drugs. - Family history:: not pertinent. Screenin/28 00:06 [facility] ED Fall Risk Assessment (Adult) Score/Fall Risk Level 0 - 2 = Low Risk. Abuse as6 screen: Denies threats or abuse. Denies injuries from another. Nutritional screening: No deficits noted. Tuberculosis screening: No symptoms or risk factors identified. Assessment: 09/17 23:50 General: Appears uncomfortable, Behavior is calm, cooperative. Pain: Complains of pain as6 in abdomen. Neuro: Level of Consciousness is awake, alert, obeys commands, Oriented to person, place, time, situation. Cardiovascular: Capillary refill < 3 seconds Patient's skin is warm and dry. Respiratory: Respiratory effort is even, unlabored, Respiratory pattern is regular, symmetrical. GI: Reports lower abdominal pain, diarrhea, nausea, vomiting. Derm: Skin is intact, is healthy with good turgor. 09/18 02:18 Reassessment: Patient appears in no apparent distress at this time. Patient and/or aa9 family updated on plan of care and expected duration. Pain level reassessed. Patient is alert, oriented x 3, equal unlabored respirations, skin warm/dry/pink. connected NG tube to intermitted low suction per Mahesh PORTER verbal orders. collection chamber empty. Vital Signs: 09/17 22:32 BP 151 / 88; Pulse 84; Resp 18; Temp 97.7; Pulse Ox 92% on R/A; Weight 73.94 kg; Height pf1 5 ft. 11 in. ; Pain 10/10; 09/18 00:07 BP 124 / 62; Pulse 64; Resp 20 S; Pulse Ox 99% on 2 lpm NC; as6 02:00 BP 159 / 74; Pulse 83; Resp 19 S; Pulse Ox 99% on 2 lpm NC; aa9 02:41 BP 146 / 88; Pulse 84; Resp 16 S; Pulse Ox 98% on 2 lpm NC; as6 03:36 Pulse 73; Resp 17 S; Pulse Ox 99% on 2 lpm NC; as6 09/17 22:32 Body Mass Index 22.73 (73.94 kg, 180.34 cm) pf1 09/17 22:32 Pain Scale: Adult pf1 ED Course: 09/17 22:28 Patient arrived in ED. jj6 22:39 Triage completed. pf1 22:42 Pedro Aragon MD is Attending Physician. sp4 23:24 Maria Luisa Holloway, LAKESHA is Primary Nurse. aa9 23:26 Arm band placed on. as6 09/18 00:00 Inserted saline lock: 20 gauge in right antecubital area, using aseptic technique. as6 Blood collected. 00:07 Placed in gown. Bed in low position. Call light in reach. Side rails up X 1. as6 01:00 CT Chest, Abdomen, Pelvis - W/Contrast In Process Unspecified. EDMS 01:29 NGT: inserted 16 Fr. via right nare. verified placement of air over stomach, Placement aa9 verified by X-ray. 01:50 XRAY Chest (1 view) In Process Unspecified. EDMS 02:40 Edwin Guerrero MD is Hospitalizing Provider. sp4 03:35 No provider procedures requiring assistance completed. as6 03:38 Patient admitted, IV remains in place. as6 Administered Medications: 00:00 Drug: fentaNYL (PF) IVP 100 mcg Route: IVP; Site: right antecubital; as6 03:38 Follow up: Response: No adverse reaction as6 00:00 Drug: Ondansetron IVP 4 mg Route: IVP; Site: right antecubital; as6 03:38 Follow up: Response: No adverse reaction as6 00:01 Drug: NS 0.9% IV 1000 ml Route: IV; Rate: 125 ml/hr; Site: right antecubital; as6 03:39 Follow up: Response: No adverse reaction; IV Status: Infusion continued upon admission; as6 IV Intake: 400ml 00:01 Drug: Famotidine IVP 20 mg Route: IVP; Site: right antecubital; as6 03:39 Follow up: Response: No adverse reaction as6 01:27 Drug: fentaNYL (PF) IVP 50 mcg Route: IVP; Site: right antecubital; aa9 03:39 Follow up: Response: No adverse reaction as6 01:27 Drug: metoCLOPramide IVP 10 mg Route: IVP; Site: right antecubital; aa9 03:39 Follow up: Response: No adverse reaction as6 03:41 Drug: Ondansetron IVP 4 mg Route: IVP; Site: right antecubital; aa9 04:00 Follow up: Response: No adverse reaction as6 03:45 Drug: HYDROmorphone IVP 0.5 mg Route: IVP; Site: right antecubital; aa9 04:00 Follow up: Response: No adverse reaction as6 Medication: 00:06 VIS not applicable for this client. as6 Intake: 03:39 IV: 400ml; Total: 400ml. as6 Output: 02:57 Gastric: 200ml (NGT); Total: 200ml. aa9 Outcome: 02:40 Decision to Hospitalize by Provider. sp4 03:35 Condition: stable as6 03:37 Admitted to Med/surg room 231, with chart, Report called to Philipp CROWDER as6 03:37 Instructed on the need for admit. 04:00 Patient left the ED. as6 Signatures: Dispatcher [employer] EDMS Rosy Castro jj6 Blane Carson RN RN as6 Maria Luisa Holloway RN RN aa9 Zenia Murray RN RN pf1 Pedro Aragon MD MD sp4 Corrections: (The following items were deleted from the chart) 01:42 01:29 NGT: inserted 16 Fr. via right nare. verified placement of air over stomach, aa9 aa9
--- NOTE | 2022-09-18 02:41 | EDPHYS ---
Physician Documentation [facility] Name: Bharat Bauman Age: 82 yrs Sex: Male : 1940 Arrival Date: 09/17/2022 Time: 22:25 Bed 5 Private MD: ED Physician Pedro Aragon HPI: 09/17 22:42 This 82 yrs old Male presents to ER via Ambulatory with complaints of sp4 Abdominal Pain. 23:00 82-year-old male presents with acute upper abdominal pain associated with vomiting. sp4 Pain started at 5 PM. Pain described as moderate to severe constant. Patient has history of umbilical hernia repair. Recurrence of umbilical hernia, history of hiatal hernia history of cholecystectomy, history of mitral valve repair, and history of pacemaker. . Historical: - Allergies: 22:39 Morphine; pf1 - PMHx: 22:39 Atrial Fib; COPD; CVA; Hypertension; Pacemaker; pf1 - PSHx: 22:39 umbilical hernia repair x 2; Cholecystectomy; back surgery; mitral valve repair; pf1 inguinal hernia; skin cancer removal; cataracts; - Immunization history:: Adult Immunizations up to date, Last tetanus immunization: < 5 years ago Pneumococcal vaccine is up to date, Flu vaccine is up to date. - Social history:: Smoking status: Patient/guardian denies using tobacco, the patient reports quitting approximately 48 years ago, Patient/guardian denies using alcohol, street drugs. - Family history:: not pertinent. ROS: 23:00 Constitutional: Negative for fever, chills, and weight loss, Eyes: Negative for injury, sp4 pain, redness, and discharge, ENT: Negative for injury, pain, and discharge, Neck: Negative for injury, pain, and swelling, Cardiovascular: Negative for chest pain, palpitations, and edema, Respiratory: Negative for shortness of breath, cough, wheezing, and pleuritic chest pain, Abdomen/GI: Positive for abdominal pain, upper abdominal pain, nausea, vomiting. Negative for diarrhea, negative for constipation Back: Negative for injury and pain, : Negative for injury, bleeding, discharge, and swelling, MS/Extremity: Negative for injury and deformity, Skin: Negative for injury, rash, and discoloration, Neuro: Negative for headache, weakness, numbness, tingling, and seizure, Psych: Negative for depression, anxiety, Allergy/Immunology: Negative for hives, rash, and allergies Endocrine: Negative for neck swelling, polydipsia, polyuria, polyphagia, and weight changes Hematologic/Lymphatic: Negative for swollen nodes, abnormal bleeding, and unusual bruising Exam: 23:00 Constitutional: This is a well developed, well nourished patient who is awake, alert, sp4 and in no acute distress. Head/Face: Normocephalic, atraumatic. Eyes: Pupils equal round and reactive to light, extra-ocular motions intact. Lids and lashes normal. Conjunctiva and sclera are not injected. Cornea within normal limits. Periorbital areas with no swelling, redness, or edema. ENT: Nares patent. No nasal discharge, no septal abnormalities noted. Tympanic membranes are normal and external auditory canals are clear. Oropharynx with no redness, swelling, or masses, exudates, or evidence of obstruction, uvula midline. Mucous membranes moist. Neck: Trachea midline, no thyromegaly or masses palpated, and no cervical lymphadenopathy. Supple, full range of motion without nuchal rigidity, or vertebral point tenderness. No Meningismus. Chest/axilla: Normal chest wall appearance and motion. Nontender with no deformity. No lesions are appreciated. Cardiovascular: Regular rate and rhythm with a normal S1 and S2. No gallops, murmurs, or rubs. Normal PMI, no JVD. No pulse deficits. Respiratory: Lungs have equal breath sounds bilaterally, clear to auscultation and percussion. No rales, rhonchi or wheezes noted. No increased work of breathing, no retractions or nasal flaring. Abdomen/GI: Soft, acute diffuse generalized tenderness. Negative rebound, negative rigidity, negative distention. Bowel sounds hypoactive Back: No spinal tenderness. No costovertebral tenderness. Male : Normal genitalia with no discharge or lesions. Skin: Warm, dry with normal turgor. Normal color with no rashes, no lesions, and no evidence of cellulitis. MS/ Extremity: Pulses equal, no cyanosis. Neurovascular intact. Full, normal range of motion. Neuro: Awake and alert, GCS 15, oriented to person, place, time, and situation. Cranial nerves II-XII grossly intact. Motor strength 5/5 in all extremities. Sensory grossly intact. Psych: Awake, alert, with orientation to person, place and time. Behavior, mood, and affect are within normal limits 09/18 02:38 ECG was reviewed by the Attending Physician. Normal sinus rhythm at the rate of 77, EKG sp4 time 2324, low voltage QRS, otherwise normal EKG Vital Signs: 09/17 22:32 BP 151 / 88; Pulse 84; Resp 18; Temp 97.7; Pulse Ox 92% on R/A; Weight 73.94 kg; Height pf1 5 ft. 11 in. ; Pain 10/10; 09/18 00:07 BP 124 / 62; Pulse 64; Resp 20 S; Pulse Ox 99% on 2 lpm NC; as6 02:00 BP 159 / 74; Pulse 83; Resp 19 S; Pulse Ox 99% on 2 lpm NC; aa9 02:41 BP 146 / 88; Pulse 84; Resp 16 S; Pulse Ox 98% on 2 lpm NC; as6 03:36 Pulse 73; Resp 17 S; Pulse Ox 99% on 2 lpm NC; as6 09/17 22:32 Body Mass Index 22.73 (73.94 kg, 180.34 cm) pf1 09/17 22:32 Pain Scale: Adult pf1 MDM: 09/17 22:55 Patient medically screened. sp4 09/18 02:28 Differential Diagnosis altered mental status, sepsis, I acute hiatal hernia with sp4 obstruction, obstructed bowel, colitis, enteritis, acute gastroenteritis. Data reviewed: vital signs, nurses notes, old medical records, lab test result(s), EKG. Consideration of Admission/Observation Patient was admitted/placed on observation. Escalation of care including admission/observation considered. Management of patient was discussed with the following: Hospitalist: Admitting hospitalist. Software Maintenance Engineer: Surgeon Dr. Perez. ED course: CT abdomen and pelvis revealed small bowel obstruction extending down left inguinal region hernia with incarcerated small bowel consistent with left inguinal hernia with incarceration. Status post anterior abdominal wall mesh hernia repair. Status post cholecystectomy. Diverticulosis without evidence for diverticulitis. Fatty infiltration of the liver. Enlarged prostate gland responding to BPH. Status post CABG mild cardiomegaly with coronary atherosclerosis. Small 3.2 mm right solid pulmonary nodule.. 02:38 ED course: Patient warrants admission for general surgery assessment for incarcerated sp4 inguinal hernia and bowel obstruction. 09/17 22:44 Order name: CBC with Diff sp4 09/17 22:44 Order name: CMP; Complete Time: 00:56 sp09/17 22:44 Order name: Lipase; Complete Time: 00:56 09/17 22:44 Order name: Urinalysis w/ reflexes 09/18 02:42 Order name: PT-INR; Complete Time: 03:31 la09/18 02:42 Order name: Ptt, Activated; Complete Time: 03:31 09/18 02:43 Order name: BNP; Complete Time: 03:47 09/18 02:43 Order name: Troponin High Sensitivity; Complete Time: 03:47 la09/17 23:00 Order name: CT Chest, Abdomen, Pelvis - W/Contrast 09/18 01:28 Order name: XRAY Chest (1 view) 9 09/18 02:43 Order name: Abdomen 1 View XRAY 09/17 22:44 Order name: IV Saline Lock; Complete Time: 00:00 09/17 22:44 Order name: Labs collected and sent; Complete Time: 00:00 09/18 01:04 Order name: NG Tube; Complete Time: 01:26 EC:38 Rate is 77 beats/min. Rhythm is regular, Normal Sinus Rhythm. QRS [place] is Normal. [place] sp4 interval is normal. QRS interval is normal. QT interval is normal. T waves are Normal. No ST changes noted. Clinical impression: Normal ECG. Interpreted by me. Administered Medications: 00:00 Drug: fentaNYL (PF) IVP 100 mcg Route: IVP; Site: right antecubital; as6 03:38 Follow up: Response: No adverse reaction as6 00:00 Drug: Ondansetron IVP 4 mg Route: IVP; Site: right antecubital; as6 03:38 Follow up: Response: No adverse reaction as6 00:01 Drug: NS 0.9% IV 1000 ml Route: IV; Rate: 125 ml/hr; Site: right antecubital; as6 03:39 Follow up: Response: No adverse reaction; IV Status: Infusion continued upon admission; as6 IV Intake: 400ml 00:01 Drug: Famotidine IVP 20 mg Route: IVP; Site: right antecubital; as6 03:39 Follow up: Response: No adverse reaction 01:27 Drug: fentaNYL (PF) IVP 50 mcg Route: IVP; Site: right antecubital; aa9 03:39 Follow up: Response: No adverse reaction as6 01:27 Drug: metoCLOPramide IVP 10 mg Route: IVP; Site: right antecubital; aa9 03:39 Follow up: Response: No adverse reaction as6 03:41 Drug: Ondansetron IVP 4 mg Route: IVP; Site: right antecubital; aa9 04:00 Follow up: Response: No adverse reaction as6 03:45 Drug: HYDROmorphone IVP 0.5 mg Route: IVP; Site: right antecubital; aa9 04:00 Follow up: Response: No adverse reaction as6 Disposition Summary: 09/18/22 02:40 Hospitalization Ordered Hospitalization Status: Inpatient Admission sp4 Provider: Edwin [email or web address] Location: Telemetry/MedSur (Inpatient) sp4 Condition: Stable sp4 Problem: new sp4 Symptoms: have improved sp4 Bed/Room Type: Standard sp4 Room Assignment: 231(09/18/22 03:31) cg Diagnosis - Incarcerated left inguinal hernia, small bowel obstruction, intractable vomiting sp4 Forms: - Medication Reconciliation Form sp4 - SBAR form sp4 Signatures: Dispatcher [employer] EDDavy Jimenez FNP-C FNP-Cla1 Sophie Steele RN RN cg Blane Carson RN RN as6 Maria Luisa Holloway RN RN aaZenia Galeano RN RN pf1 Potepalov, Sergey, MD MD sp4 Corrections: (The following items were deleted from the chart) 03:31 02:40 sp4 cg
--- NOTE | 2022-09-18 03:24 | P.HP ---
Certification for Inpatient Patient admitted to: Inpatient With expected LOS: >2 Midnights Patient will require the following post-hospital care: None Practitioner: I am a practitioner with admitting privileges, knowledge of patient current condition, hospital course, and medical plan of care. Services: Services provided to patient in accordance with Admission requirements found in Title 42 Section 412.3 of the Code of Federal Regulations <Davy Jane - Last Filed: 09/18/22 03:20> Patient History Date of Service: 09/18/22 Reason for admission: Small bowel obstruction History of Present Illness: 82-year-old male with history of atrial fibrillation/mitral valve repair on chronic anticoagulation with warfarin, COPD presents to the emergency department chief complaint of severe abdominal pain. He reports his pain began this evening, he had a normal bowel movement this afternoon, 1 episode of vomiting and one episode of diarrhea prior to arrival to the emergency department. He was evaluated in the emergency department his labs were significant for mild leukocytosis white blood cell count 11.3 creatinine 1.32 GFR 54 BUN [address] chest abdomen pelvis was performed which revealed small bowel dilatation/obstruction extending down to the left inguinal region hernia with incarcerated small bowel. ED physician discussed case with general surgery on- call who plans on seeing patient in the morning. ED physician did attempt closed reduction of hernia without success. NG tube was placed.INR now added and pending. - Past Medical/Surgical History Diabetic: No -: Stroke 2017 -: COPD -: AFIB on warfarin -: Hital Hernia -: Mitral valve repair -: 2009 pacemaker/afib -: 2011 cardioversion -: 2013, 2016 cardiac ablation -: hernia sx 1993, 2014 -: back disc sx 97 -: tonsilectomy -: L cataract lens replacement -: Hiatal hernial repair 2017 Psychosocial/ Personal History: . - Family History Brother -: Hypertension Sister -: Lung disease Mother -: Heart disease - Social History Alcohol use: No CD- Drugs: No Caffeine use: No Place of Residence: Home <Davy Jane - Last Filed: 09/18/22 03:20> Date of Service: 09/18/22 <Edwin Guerrero - Last Filed: 09/18/22 14:38> Allergies morphine Adverse Reaction (Severe, Verified 09/18/22 04:51) AMS Home Medications: Montelukast [Singulair] 10 mg PO BEDTIME 10/18/18 Albuterol Inhaler [Ventolin Inhaler] 2 puff IH Q6H PRN 02/25/22 Ascorbic Acid [Vitamin C] 1,000 mg PO DAILY 02/25/22 Cholecalciferol (Vitamin D3) [Vitamin D 1000 Iu Tab] 1,000 unit PO DAILY 02/25/22 Cyanocobalamin [Vitamin B-12] 1,000 mcg PO DAILY 02/25/22 Zinc Gluconate [Zinc] 50 mg PO DAILY 02/25/22 Fluticasone/Umeclidin/Vilanter [Trelegy Ellipta 100-62.5-25] 1 puff IH DAILY 09/18/22 Gabapentin 600 mg PO BID 09/18/22 Warfarin Sodium [Jantoven] 5 mg PO SEECOM 09/18/22 Review of Systems 10-point ROS is otherwise unremarkable Gastrointestinal: Nausea, Abdominal Pain <Davy Jane - Last Filed: 09/18/22 03:20> Physical Examination - Physical Exam General: Alert, In no apparent distress, Oriented x3 HEENT: Atraumatic, PERRLA, Mucous membr. moist/pink, EOMI, Sclerae nonicteric Neck: Supple, 2+ carotid pulse no bruit, No LAD, Without JVD or thyroid abnormality Respiratory: Clear to auscultation bilaterally, Normal air movement Cardiovascular: Regular rate/rhythm, Normal S1 S2 Capillary refill: <2 Seconds Gastrointestinal: Hypoactive, Tenderness (Mild generalized abdominal tenderness no rebound or guarding) Musculoskeletal: No tenderness Integumentary: No rashes Neurological: Normal speech, Normal strength at 5/5 x4 extr, Normal tone, Normal affect - Studies Laboratory Data (last 24 hrs) 09/17/22 23:58: Sodium 137, Potassium 4.3, BUN 19 H, Creatinine 1.32 H, Glucose 151 H, Total Bilirubin 0.5, AST 16, ALT 23, Alkaline Phosphatase 73, Lipase 33 09/17/22 23:58: WBC 11.30 H, Hgb 13.4 L, Hct 41.5, Plt Count 170 <Davy Jane - Last Filed: 09/18/22 03:20> - Studies Laboratory Data (last 24 hrs) 09/17/22 23:58: Sodium 137, Potassium 4.3, BUN 19 H, Creatinine 1.32 H, Glucose 151 H, Total Bilirubin 0.5, AST 16, ALT 23, Alkaline Phosphatase 73, Lipase 33 09/17/22 23:58: WBC 11.30 H, Hgb 13.4 L, Hct 41.5, Plt Count 170 <Edwin Guerrero - Last Filed: 09/18/22 14:38> Assessment and Plan - Plan Assessment: Small bowel obstruction secondary to incarcerated left inguinal hernia Atrial fibrillation/mitral valve replacement on chronic anticoagulation with warfarin COPD Hypertension CVA Plan: Small bowel obstruction secondary to incarcerated left inguinal hernia N.p.o., IVF, NG tube in place. Surgical consult obtained by ER physician. Continue recheck metabolic status Zosyn, as needed pain medications and antiemetics. Serial abdominal exams. Atrial fibrillation/mitral valve replacement on chronic anticoagulation with warfarin INR ordered and pending, follow daily INR. He is on warfarin 5 mg daily. Hold oral warfarin, depending on INR level/surgical plans may need therapeutic Lovenox. COPD No active exacerbation noted, as needed breathing treatments. Hypertension Hold oral medications, as needed antihypertensives. CVA DVT PPX: Obtain INR, SCDs in place, likely to require therapeutic Lovenox Code status: Full Discharge Plan: Home Plan to discharge in: 72 Hours - Advance Directives Does patient have a Living Will: No Does patient have a Durable POA for Healthcare: No - Code Status/Comfort Care Code Status Assessed: Yes (Full code) Critical Care: No Time Spent Managing Pts Care (In Minutes): 70 <Davy Jane - Last Filed: 09/18/22 03:20> - Plan Patient seen on rounds this morning Feels slightly better NG tube in place Hernia remains, unable to reduce General surgery consulted, anticipate surgery today Will need to bridge Coumadin postop with Lovenox <Edwin Guerrero - Last Filed: 09/18/22 14:38>
[2022-09-18 03:25] LABS: Protime INR 1.51
[2022-09-18 03:39] LABS: Troponin High Sensitivity 12.3 pg/mL (<58.9)
[2022-09-18] MEDS ORDERED: HYDROMORPHONE HCL 0.5 MG/0.5 ML INJ ONE (03:47)
[2022-09-18] MEDS ORDERED: ONDANSETRON 4 MG/2 ML VIAL ONE ×2 (03:47→12:36)
[2022-09-18] MEDS: NA CHLORIDE 0.9% 1,000 ML IV SCH ×3 (04:35→23:30)
[2022-09-18 04:49] LABS: Blood Morphology Comment NOT SEEN (NOT SEEN); Platelet Estimate ADEQ; White Blood Cell Scan OK (OK)
[2022-09-18 05:10] VITALS: BMI 22.7
[2022-09-18] MEDS: PIPER TAZO 3.375 GM in NA CHLORIDE 0.9% 100 ML IV SCH ×2 (08:21→17:59)
--- NOTE | 2022-09-18 09:12 | CON ---
Date of Consultation: 09/18/2022 Reason For Consultation: Cardiac clearance because of history of mitral valve repair. History Of Present Illness: Mr. Bauman is a patient of Dr. Edmond Mejias in [place]. Has had a histor y of mitral valve repair approximately [address] Alvarez. Has a most recent echo that was a bout a year ago and that was normal with normally functioning mitral valve according to the family. He has a history of hypertension, atrial fibrillation, COPD. Has had a history of CVA and pacemaker in the past. He is known to have normal coronaries. Came in with an inguinal hernia. Dr. Perez is planning to see him today. There has not been a definitive plan for surgery, so it could be a gogo sed reduction or open reduction. No cardiac symptoms reported. Past Medical History: As stated above. Allergies: HE IS ALLERGIC TO MORPHINE. Review of Systems: Negative. Social History: Negative. Family History: Noncontributory. Medications: At home include Neurontin, inhalers, and Coumadin. Physical Examination: Vital Signs: Stable, paced rhythm, afebrile. HEENT: Negative. Neck: Supple without any lymphadenopathy, JVD, thyromegaly, or bruit. Chest: Clear. Cardiac: Revealed a paced rhythm. No murmurs, gallops, or rubs. Abdomen: Positive for inguinal hernia. Positive bowel sounds. Extremities: Revealed no clubbing, cyanosis, or edema. Diagnostic Data: EKG is paced rhythm. Creatinine of 1.32, BNP of 360. Impression And Plan: The patient with history of mitral valve repair, on Coumadin. Has a pacemaker, has atrial fibrillation, has had a stroke before in the past when they stopped his Coumadin. He has chronic obstructive pulmonary disease, history of cerebrovascular accident. He is stable hemodynami beatriz and certainly not having any cardiac symptoms and I would clear him for surgery. He has a hist ory of normal coronaries. The only issue is that he is to have surgery, he should have a bridging wi th Lovenox prior to his surgery. I think once the surgery is decided upon, we should hold his Coumad in, start Lovenox. Once his INR is appropriate, we can probably have him operated on. Hopefully, th is will be a close reduction. I will discuss the case further with Dr. Guerrero and Dr. Perez. NB/MODL Voice ID: [id number] Report ID: [id number]
[2022-09-18] MEDS ORDERED: Ringers Lactate 1,000 ML IV ONE (12:02)
[2022-09-18] MEDS ORDERED: BUPIVACAINE 0.5% PF 10 ML VIAL ONE (12:32)
[2022-09-18] MEDS ORDERED: SUCCINYLCHOLINE 20 MG/ML (10 ML) IV ONE (12:34)
[2022-09-18] MEDS ORDERED: propofoL 200 MG/20 ML VIAL IV ONE (12:35)
[2022-09-18] MEDS ORDERED: MIDAZOLAM HCL 2 MG/2 ML INJ ONE (12:36)
[2022-09-18] MEDS ORDERED: LIDOCAINE 2% MPF 5 ML VIAL ONE (12:38)
[2022-09-18] MEDS ORDERED: ROCURONIUM 50 MG/5 ML VIAL IV ONE (12:39)
[2022-09-18] MEDS ORDERED: NA CHLORIDE 0.9% 1,000 ML ONE (13:15)
--- NOTE | 2022-09-18 13:48 | CON ---
Date of Consultation: 09/18/2022 Reason For Service: Small bowel obstruction, probably related to left inguinal hernia. History Of Present Illness: This is the case of an 82-year-old patient, who was eating yesterday, he ate a lot of volume and he says he just choke and have to cough, and after that he noticed the swell ing in the left inguinal region. He did not think much about it, but since he did not get better and he got tender and started to have nausea, he came to the ER overnight and this morning he came and h jazzmine was diagnosed with small bowel obstruction. He has multiple surgeries in his abdomen, apparently h is small bowel obstruction could be coming from the left inguinal hernia. The patient has extensive heart disease, on Coumadin actively. The patient's grain sampler just came recently to evaluate him a nd medical doctor also evaluated him. He denies any trauma. Denies any dizziness. Denies any dysur ia, hematuria, hematochezia, or melena. Please see HPI. Review of Systems: Ten points otherwise unremarkable. Once again include nausea and vomiting. Allergies: MORPHINE. Past Medical History: Cardiac disease, mitral valve repair, CVA, COPD, hypertension, AFib, the patie nt has a pacemaker, Social History: He does not smoke. He does not drink alcohol. Medications: Coumadin, Neurontin, inhalers. Family History: Noncontributory. Physical Examination: General: The patient is awake, alert. HEENT: Pupils are equal and reactive. Anicteric. Neck: Supple. Chest: Clear. Abdomen: Softly distended. Left inguinal bulging, left lower quadrant abdominal pain. Rectal: Deferred. Extremities: Good capillary refill. Laboratory Data: Blood work shows WBC count of 11.3, hemoglobin of 13.4, platelets of 170. Potassiu m is 4.3, anion gap of 5.3, glucose 151, lipase 33. INR is 1.51, PT 16.6. CAT scan of the abdomen a nd pelvis reported by as small bowel dilatation without obstruction extending down to the left inguinal region with incarcerated small bowel, status post anterior wall mesh hernia repair, status post cholecystectomy, diverticulosis without diverticulitis, fatty infiltration of the liver, enlarged prostate, status post CABG, mild cardiomegaly, 3.2 mm solid pulmonary nodule, all that was explained to the patient and family. Assessment: Small bowel obstruction, left inguinal hernia. He has cardiac risks. Cardiology came t his morning, but at this moment, this is an emergency. INR is elevated. He is on Coumadin. At the same time, we might have compromised bowel, so we offered him open repair of left inguinal hernia, po ssible diagnotic laparoscopy, possible laparotomy, possible bowel resection, possible mesh use with b enefits, alternatives, and risks including, but not limited to infection, bleeding, damage to adjacen t structures, anesthesia complication, stroke, MIs, and even . He also understands this may not relieve any symptoms. He might need more than one surgical intervention. He understood. His was present and the daughter too. AMANDA/FABRICE Voice ID: [id number] Report ID: [id number]
[2022-09-18] MEDS ORDERED: SUGAMMADEX SODIUM 200 MG/2 ML VIAL IV ONE (13:51)
--- NOTE | 2022-09-18 14:08 | P.BOP ---
Preoperative diagnosis: small bowel obstruction, incarcerated inguinal hernia Postoperative diagnosis: small bowel obstruction, incarcerated femoral hernia Primary procedure: 1. Diagnostic laparoscopy Secondary procedure: 2. open repair of incarcerated femoral hernia with mesh Estimated blood loss: <10cc Specimen: none Findings: visually viable small bowel on a incarcerated femoral hernia, + peristalsis Anesthesia: General Complications: None Drain(s): Urinary catheter Transferred to: Recovery Room Condition: Good
[2022-09-18] MEDS: MEPERIDINE HCL 25 MG/ML SYR ONE ×2 (14:09→14:15)
[2022-09-18] MEDS ORDERED: NA CHLORIDE 0.9% 0 ML ONE (17:18)
[2022-09-18] MEDS: HYDROMORPHONE HCL 0.5 MG/0.5 ML INJ IV PRN ×2 (17:59→21:53)
[2022-09-18] MEDS: ONDANSETRON 4 MG/2 ML VIAL IV PRN (17:59)
[2022-09-18] MEDS: ENOXAPARIN 80 MG/0.8 ML SQ SCH ×2 (20:07→21:53)
[2022-09-19] MEDS: PIPER TAZO 3.375 GM in NA CHLORIDE 0.9% 100 ML IV SCH ×3 (00:53→16:25)
[2022-09-19 04:15] LABS: Absolute Lymphocytes (CBC) 1.2 K/uL (0.7-4.9); Hematocrit 37.8 % (39.6-49.0); Lymphocytes % 12.4 % (15.3-44.8); MCV 87.9 fL (80-100); MPV 9.3 fL (7.6-11.3)
[2022-09-19 04:34] LABS: Protime INR 1.79
[2022-09-19] MEDS: ONDANSETRON 4 MG/2 ML VIAL IV PRN ×2 (04:44→12:42)
[2022-09-19] MEDS: HYDROMORPHONE HCL 0.5 MG/0.5 ML INJ IV PRN ×5 (04:44→22:56)
[2022-09-19 04:47] LABS: Magnesium 1.8 mg/dL (1.6-2.4); Potassium 3.8 mEq/L (3.5-5.1)
--- NOTE | 2022-09-19 07:26 | P.PN ---
Date of Service: 09/19/22 Subjective: feeling about the same as yesterday no BM, no flatus urine is joel in color otherwise no new / worsening problems has not ambulated yet, tired ROS: 10 point ROS as noted above, otherwise negative Physical Exam: GEN: Alert, oriented, HEENT: Normal conjunctiva, sclera anicteric, NGT, mild edema CV: Regular rate and rhythm, trace edema Pulm: Nonlabored respirations, clear bilaterally ABD: Soft, Mild generalized abdominal tenderness Neuro: Normal speech, normal affect Cook in place NGT in place vitals reviewed Problem List: SBO secondary to incarcerated inguinal hernia, s/p surgical repair Atrial fibrillation/mitral valve replacement on chronic anticoagulation with warfarin COPD Hypertension CVA Small bowel obstruction secondary to incarcerated left inguinal hernia CT (09/17): small bowel dilatation/obstruction extending down to the left inguinal region hernia with incarcerated small bowel. General Surgery consulted s/p diagnostic laparoscopy and open repair of incarcerated femoral hernia (09/19) laproscopic findings: visually viable small bowel on a incarcerated femoral hernia, + peristalsis slow advancement continue NPO, NGT for now, per surgery Continue Zosyn PRN pain medications and antiemetics Atrial fibrillation/mitral valve replacement on chronic anticoagulation with warfarin INR normal, follow daily He is on warfarin 5 mg daily. Hold oral warfarin, continue lovenox for now discussed with Dr. Perez (09/18); continue lovenox; restart warfarin in next day or so; if improves avoiding warfarin re-intiation in event pt needs to go back to OR COPD No active exacerbation noted, as needed breathing treatments. Hypertension Hold oral medications, as needed antihypertensives. VTE: Lovenox therapeutic Code: Full Dispo: Home 2-3 days
[2022-09-19] MEDS: NA CHLORIDE 0.9% 1,000 ML IV SCH ×4 (08:28→20:17)
[2022-09-19] MEDS: ENOXAPARIN 80 MG/0.8 ML SQ SCH ×2 (08:29→20:08)
--- NOTE | 2022-09-19 10:55 | RAD REPORT ---
EXAM DESCRIPTION: CT - Chest Abdomen Pelvis W Cont - 09/18/2022 6:40 am ADDENDUM #1 THIS REPORT CONTAINS FINDINGS THAT MAY BE CRITICAL TO PATIENT CARE: Called, telephoned, verbal repo rt was given oral to Davy Jane nurse practitioner at 2:05 AM CDT on 09/18/2022. Electronically signed by: Obey Ortega MD 09/18/2022 2:39 AM CDT End of Addendum EXAM DESCRIPTION: Chest Abdomen Pelvis W Cont 09/18/2022 1:51 AM CDT CLINICAL HISTORY: 82 years, Male, ABDOMINAL DISTENTION COMPARISON: 03/21/2022 TECHNIQUE: Contrast-enhanced images of the chest, abdomen and pelvis were performed utilizing 5 mm s lice thickness at 5 mm interval reconstruction from the lung apices to the ischial tuberosities after the administration of 100 cc of Omnipaque 350 at the rate of 3.0 cc/sec. 10 minutes delay images of the kidney and bladder were also generated. In addition multiplanar reformats in the coronal and sagittal plane were obtained and reviewed. This exam was performed according to our departmental dose-optimization protocol, which includes auto mated exposure control, adjustment of the mA and/or kV according to patient size and/or use of iterat jd reconstruction technique. CHEST: The lungs parenchyma demonstrate centrilobular emphysematous changes with slightly increased b ullous changes lung bases. No evidence for pneumothorax. There is a tiny nodule within the inferior a spect right upper lobe measuring 3.2 mm on image 29. There is a semisolid ovoid lesion along the infe rior aspect left major fissure measuring 0.7 cm most likely corresponding to a intrafissural lymph no de. The trachea mainstem bronchus demonstrate to be normal. There is no significant pleural and/or perica rdial effusions. The heart is increase in size. There are coronary artery calcifications. Sternotomy wires pericardial clips correspond to previous CABG. There is a multilead pacemaker in place. The thoracic aorta demon strate minimal intimal calcification. No evidence for aneurysm/or dissection. The central pulmonary a rteries demonstrate to be normal with no significant major filling defects. There is no significant mediastinal and/or hilar lymphadenopathy. The axillary regions demonstrate to be clear. The bone windows demonstrate no significant skeletal lesions. There is a small right castro tral diaphragmatic eventration. There is a small sized hiatal hernia. There is findings suggesting an terior chest wall hernia repair with mesh on axial image 47-52. ABDOMEN AND PELVIS: The liver decreased attenuation corresponding to fatty infiltration. Otherwise th e liver, pancreas, spleen and adrenal glands demonstrate to be unremarkable, no focal lesions are not ed. There is a status post cholecystectomy. There are punctate splenic granulomas. There is distended stomach with fluid content. There are dilated proximal small bowel loops extending down to left inguinal region where there is a inguinal hernia with incarcerated small bowel. This is best demonstrated on axial image 103/141-115/141 and coronal image 73/153-76/153. The large bowel demonstrate to be unremarkable. There is diverticulosis within the left site colon/si gmoid colon. There is a status post anterior abdominal wall mesh hernia repair. The kidneys demonstrate normal uptake of contrast media with no significant hydronephrosis. The urinary bladder demonstrate to be unremarkable. The prostate gland is prominent corresponding t o most likely BPH. The aorta demonstrate minimal atheromatous plaque formation. There is no retro peritoneal lymphadenopathy. There is no evidence for ascites/or abnormal fluid collections. The bone windows demonstrate mild diffuse bony osteopenia with minimal degenerative disc disease. IMPRESSION: There is small bowel dilatation/obstruction extending down to the left inguinal region h ernia with incarcerated small bowel. Status post anterior abdominal wall mesh hernia repair. Status post cholecystectomy. Diverticulosis without evidence of acute diverticulitis. Fatty infiltration of the liver. Enlarged prostate gland corresponding to most likely BPH. Status post CABG. Mild cardiomegaly with coronary atherosclerosis. Status post anterior chest wall hernia repair with mesh. 3.2 mm right solid pulmonary nodule. If patient is low risk for malignancy, no routine follow-up imag ing is recommended; if patient is high risk for malignancy, a non-contrast Chest CT at 12 months is o ptional. Electronically signed by: Obey Ortega MD 09/18/2022 2:00 AM CDT Due to temporary technical issues with the PACS/Fluency reporting system, reports are being signed by the in house radiologists without review as a courtesy to insure prompt reporting. The interpreting radiologist is fully responsible for the content of the report.
--- NOTE | 2022-09-19 12:48 | RAD REPORT ---
EXAM DESCRIPTION: RAD - Abdomen Single View - 09/18/2022 3:05 am CLINICAL HISTORY: Eval NG Tube position TECHNIQUE: Supine views of the abdomen COMPARISON: None available for comparison FINDINGS: Moderate distention of the small bowel which may represent ileus versus partial obstructio n. Mild gastric distention. Surgical clips in the right upper quadrant and throughout the abdomen likely reflecting prior ventral hernia repair. NG tube is not visualized on this examination and does not extend to the [id number]. There is contrast in the urinary bladder from prior CT examination. IMPRESSION: Moderate distention of the small bowel which may represent ileus versus partial obstruct ion. Mild gastric distention. NG tube is not visualized on this examination and likely terminates more proximally.. Electronically signed by: Saroj Piedra MD 09/18/2022 3:51 AM CDT Due to temporary technical issues with the PACS/Fluency reporting system, reports are being signed by the in house radiologists without review as a courtesy to insure prompt reporting. The interpreting radiologist is fully responsible for the content of the report.
[2022-09-19 13:01] LABS: Specific Gravity 1.028 (1.005-1.030); Urine Bacteria 20-50 /HPF (<20); Urine Bilirubin NEGATIVE (Negative); Urine Blood 3+ (OVER) (Negative); Urine Clarity Turbid (Clear); Urine Color Yellow (Yellow); Urine Glucose NEGATIVE (Negative); Urine Mucus Slight /HPF (None Seen); Urine Protein 1+ (Negative); Urine RBC >50 /HPF (None Seen); Urine Urobilinogen Normal (Normal)
--- NOTE | 2022-09-19 13:48 | RAD REPORT ---
EXAM DESCRIPTION: RAD - Chest Single View - 09/18/2022 1:48 am CLINICAL HISTORY: 82 years, Male, Post NG tube Placement COMPARISON: None. FINDINGS: Single view of the chest was obtained portable. No prior films are available for compariso n. There has been interval placement of a nasogastric tube difficult to completely assess/evaluate se veral lines within the [id number] imaging limits diagnosis. Findings could suggest to be coiled al checo the distal esophagus. The heart is prominent. The thoracic aorta is mildly tortuous. Sternotomy w ires pericardial clips correspond to previous CABG. There is a multilead pacemaker in place. Small ri ght diaphragmatic eventration. The rest of the soft tissue and bony structures demonstrate to be un remarkable. IMPRESSION: Nasogastric tube difficult to completely assess/evaluate/evaluate several lines within t he [id number] imaging limits diagnosis. Findings could suggest to be coiled along the distal esoph [place]. Correlate with suction if this is not apparent recommend repeat film of the upper abdomen. Electronically signed by: Obey Ortega MD 09/18/2022 2:29 AM CDT Due to temporary technical issues with the PACS/Fluency reporting system, reports are being signed by the in house radiologists without review as a courtesy to insure prompt reporting. The interpreting radiologist is fully responsible for the content of the report.
[2022-09-19] MEDS ORDERED: TRAMADOL HCL 50 MG TAB PO PRN (16:18)
[2022-09-20] MEDS: PIPER TAZO 3.375 GM in NA CHLORIDE 0.9% 100 ML IV SCH ×3 (00:44→18:10)
[2022-09-20] MEDS: NA CHLORIDE 0.9% 1,000 ML IV SCH ×4 (03:11→16:17)
[2022-09-20] MEDS: HYDROMORPHONE HCL 0.5 MG/0.5 ML INJ IV PRN (03:11)
[2022-09-20 04:06] LABS: Protime INR 1.7
[2022-09-20 04:39] LABS: Absolute Lymphocytes (CBC) 1.2 K/uL (0.7-4.9); Hematocrit 34.8 % (39.6-49.0); Lymphocytes % 14.6 % (15.3-44.8); MCV 88.2 fL (80-100); MPV 9.5 fL (7.6-11.3); RBC Red Blood Cell Count 3.95 M/uL (4.33-5.43)
[2022-09-20] MEDS: ENOXAPARIN 80 MG/0.8 ML SQ SCH ×2 (09:09→21:54)
--- NOTE | 2022-09-20 13:18 | PN ---
Date of Progress Note: 09/20/2022 Diagnosis: Small bowel obstruction, incarcerated femoral hernia. Subjective: Doing well. No complaint. He is starting to eat. Objective: Chest: Clear. Abdomen: Soft and depressible. Intact surgical site. Plan: Advance diet. Also out of bed to ambulate with obstetric assistant and whenever he can tolerate diet, t hen he can go home and follow up as an outpatient. AMANDA/FABRICE Voice ID: [id number] Report ID: [id number]
[2022-09-20] MEDS: TRAMADOL HCL 50 MG TAB PO PRN (15:24)
--- NOTE | 2022-09-20 17:03 | P.PN ---
Subjective Date of Service: 09/20/22 Chief Complaint: Small bowel obstruction Patient has no new complaint. He has tolerated full liquid diet. He denies any abdominal pain . Physical Examination - Vital Signs Temperature: 97.9 F Blood Pressure: 148/60 Pulse: 73 Respirations: 18 Pulse Ox (%): 98 Assessment And Plan - Plan Physical Exam: GEN: Alert, oriented, HEENT: Normal conjunctiva, sclera anicteric, NGT, mild edema CV: Regular rate and rhythm, trace edema Pulm: Nonlabored respirations, clear to auscultation bilaterally. ABD: Soft, no tenderness. Neuro: Normal speech, normal affect Cook in place NGT in place vitals reviewed Problem List: SBO secondary to incarcerated inguinal hernia, s/p hernia repair Atrial fibrillation/mitral valve replacement on chronic anticoagulation with warfarin COPD Hypertension CVA Small bowel obstruction secondary to incarcerated left inguinal hernia CT (09/17): small bowel dilatation/obstruction extending down to the left inguinal region hernia with incarcerated small bowel. Seen by general surgery Dr. Perez s/p diagnostic laparoscopy and repair of incarcerated femoral hernia (09/19) laproscopic findings: visually viable small bowel on a incarcerated femoral hernia. No bowel resection. Status post NG tube which has been removed. Patient has tolerated full liquid diet. Advance diet as tolerated Continue Zosyn PRN pain medications and antiemetics Atrial fibrillation/mitral valve replacement on chronic anticoagulation with warfarin INR normal, follow daily He is on warfarin 5 mg daily. Resume warfarin. Discontinue Lovenox once INR becomes therapeutic. COPD No active exacerbation noted, as needed breathing treatments.
[2022-09-20] MEDS ORDERED: HOME MED 1 EA UNK (Gabapentin [Gabapentin] 600 MG Tablet) PO SCH (21:00)
[2022-09-20] MEDS: WARFARIN SODIUM 5 MG TAB PO SCH (21:53)
[2022-09-20] MEDS: GABAPENTIN 300 MG CAP PO SCH (21:53)
[2022-09-20] MEDS: MONTELUKAST 10 MG TAB PO SCH (21:53)
[2022-09-21] MEDS: PIPER TAZO 3.375 GM in NA CHLORIDE 0.9% 100 ML IV SCH ×3 (00:53→16:32)
[2022-09-21] MEDS: NA CHLORIDE 0.9% 1,000 ML IV SCH ×4 (00:53→22:17)
[2022-09-21 03:40] LABS: Protime INR 1.4
[2022-09-21 03:41] LABS: Absolute Lymphocytes (CBC) 1.4 K/uL (0.7-4.9); Hematocrit 30.8 % (39.6-49.0); Lymphocytes % 17.3 % (15.3-44.8); MCV 87.3 fL (80-100); RBC Red Blood Cell Count 3.53 M/uL (4.33-5.43)
[2022-09-21 03:55] LABS: Potassium 3.6 mEq/L (3.5-5.1)
[2022-09-21] MEDS: ENOXAPARIN 80 MG/0.8 ML SQ SCH ×2 (08:06→21:02)
[2022-09-21] MEDS: VITAMIN D 1000 UNIT TAB PO SCH (08:07)
[2022-09-21] MEDS: ASCORBIC ACID 500 MG TABLET PO SCH (08:07)
[2022-09-21] MEDS: ZINC SULFATE 220 MG CAP PO SCH (08:07)
[2022-09-21] MEDS: GABAPENTIN 300 MG CAP PO SCH ×2 (08:07→21:03)
[2022-09-21] MEDS: CYANOCOBALAMIN 1,000 MCG TAB PO SCH (08:07)
[2022-09-21] MEDS: TRAMADOL HCL 50 MG TAB PO PRN (08:08)
[2022-09-21] MEDS: HOME MED 1 EA UNK (Fluticasone/Umeclidin/Vilanter [Trelegy Ellipta 100-62.5-25] Blst.W.Dev IH SCH (08:42)
[2022-09-21] MEDS ORDERED: HOME MED 1 EA UNK (Ascorbic Acid [Vitamin C] 1,000 MG Tablet) PO SCH (09:00)
--- NOTE | 2022-09-21 12:31 | PN ---
Date of Progress Note: 09/19/2022 Mr. Bauman was seen for cardiac clearance for an incarcerated hernia. He has a history of mitral valv e repair, has been on Coumadin. He takes Neurontin and inhalers. He also has a history of atrial fi brillation, COPD, CVA, and a pacemaker. Has known normal coronaries, mildly elevated creatinine and BNP. He did undergo surgery for incarcerated hernia and done very well. He is in a paced rhythm. N o cardiac complaint. No arrhythmias. No evidence of CHF. Continue present regimen. He can resume his Coumadin whenever it is okay with Surgery. I will sign off his case for now. SALMA/FABRICE Voice ID: [id number] Report ID: [id number]
--- NOTE | 2022-09-21 14:42 | EKG ---
Test Date: 2022-09-17 Test Time: 23:24:55 Mental Hygienist: MEASUREMENT RESULTS: Intervals: Rate: 77 GA: 194 QRSD: 92 QT: 382 QTc: 432 [place]: P: 79 GA: 194 QRS: 33 T: 33 INTERPRETIVE STATEMENTS: Normal sinus rhythm Low voltage QRS Nonspecific ST abnormality Abnormal ECG Compared to ECG 01/18/2020 15:55:29 Low QRS voltage now present Ventricular premature complex(es) no longer present Possible ischemia no longer present ST (T wave) deviation still present Electronically Signed On 09-21-22 14:38:44 CDT by Manjeet Yuen
--- NOTE | 2022-09-21 15:13 | P.PN ---
Subjective Date of Service: 09/21/22 Chief Complaint: Small bowel obstruction Patient has no new complaint. He has tolerated full liquid diet. He denies any abdominal pain. He denies any nausea. He has flatus. . Physical Examination - Vital Signs Temperature: 98.6 F Blood Pressure: 105/48 Pulse: 69 Respirations: 16 Pulse Ox (%): 99 Assessment And Plan - Plan Physical Exam: GEN: Alert, oriented, HEENT: Normal conjunctiva, sclera anicteric, NGT, mild edema CV: Regular rate and rhythm, trace edema Pulm: Nonlabored respirations, clear to auscultation bilaterally. ABD: Soft, no tenderness. Neuro: Normal speech, normal affect Cook in place NGT in place vitals reviewed Problem List: SBO secondary to incarcerated inguinal hernia, s/p hernia repair Atrial fibrillation/mitral valve replacement on chronic anticoagulation with warfarin COPD Hypertension CVA Small bowel obstruction secondary to incarcerated left inguinal hernia CT (09/17): small bowel dilatation/obstruction extending down to the left inguinal region hernia with incarcerated small bowel. Seen by general surgery Dr. Perez s/p diagnostic laparoscopy and repair of incarcerated femoral hernia (09/19) laproscopic findings: visually viable small bowel on a incarcerated femoral hernia. No bowel resection. Status post NG tube which has been removed. Patient has tolerated full liquid diet. Advance diet as tolerated Continue Zosyn PRN pain medications and antiemetics Atrial fibrillation/mitral valve replacement on chronic anticoagulation with warfarin INR normal, follow daily He is on warfarin 5 mg daily. Continue warfarin. Discontinue Lovenox once INR becomes therapeutic. COPD No active exacerbation noted, as needed breathing treatments. Impaired mobility Patient ambulated about 120 feet today. Anticipating disposition to home with home health
[2022-09-21] MEDS: MONTELUKAST 10 MG TAB PO SCH (21:03)
[2022-09-21] MEDS: WARFARIN SODIUM 5 MG TAB PO SCH (21:03)
[2022-09-22] MEDS: PIPER TAZO 3.375 GM in NA CHLORIDE 0.9% 100 ML IV SCH ×2 (00:47→09:17)
[2022-09-22] MEDS: NA CHLORIDE 0.9% 1,000 ML IV SCH (00:47)
[2022-09-22 04:38] LABS: Protime INR 1.44
[2022-09-22] MEDS: HOME MED 1 EA UNK (Fluticasone/Umeclidin/Vilanter [Trelegy Ellipta 100-62.5-25] Blst.W.Dev IH SCH (09:00)
[2022-09-22 09:12] VITALS: O2SAT 96
[2022-09-22] MEDS: GABAPENTIN 300 MG CAP PO SCH (09:15)
[2022-09-22] MEDS: VITAMIN D 1000 UNIT TAB PO SCH (09:15)
[2022-09-22] MEDS: ASCORBIC ACID 500 MG TABLET PO SCH (09:15)
[2022-09-22] MEDS: CYANOCOBALAMIN 1,000 MCG TAB PO SCH (09:16)
[2022-09-22] MEDS: ENOXAPARIN 80 MG/0.8 ML SQ SCH (09:16)
[2022-09-22] MEDS: ZINC SULFATE 220 MG CAP PO SCH (09:16)
--- NOTE | 2022-09-22 14:39 | P.DS ---
Admission Date: 09/18/22 Discharge Date: 09/22/22 Reason for Admission: Small bowel obstruction Brief History of Present Illness: 82-year-old male with history of atrial fibrillation/mitral valve repair on chronic anticoagulation with warfarin, COPD presents to the emergency department chief complaint of severe abdominal pain. Symptoms associated with 1 episode of vomiting and one episode of diarrhea prior to arrival to the emergency department. He was evaluated in the emergency department his labs were significant for mild leukocytosis white blood cell count 11.3 creatinine 1.32 GFR 54 BUN [address] chest abdomen pelvis was performed which revealed small bowel dilatation/obstruction extending down to the left inguinal region hernia with incarcerated small bowel. ED physician discussed case with general surgery who recommended admission for surgery. ED physician did attempt closed reduction of hernia without success. NG tube was placed. Patient was hospitalized for further management. Hospital Course: Diagnosis SBO secondary to incarcerated inguinal hernia, s/p hernia repair Atrial fibrillation/mitral valve replacement on chronic anticoagulation with warfarin COPD Hypertension CVA Small bowel obstruction secondary to incarcerated left inguinal hernia CT (09/17): small bowel dilatation/obstruction extending down to the left inguinal region with incarcerated small bowel. Seen by general surgery Dr. Perez s/p diagnostic laparoscopy and repair of incarcerated femoral hernia (09/19) laproscopic findings: visually viable small bowel in a incarcerated femoral hernia. No bowel resection. Status post NG tube which has been removed. Patient has tolerated soft diet. He is ambulatory with a walker and had a bowel movement. Patient treated empirically with IV Zosyn He is deemed stable for discharge per surgery Atrial fibrillation/mitral valve replacement on chronic anticoagulation with warfarin Warfarin was held for surgery, INR became subtherapeutic. Patient was placed on full dose Lovenox bridge. Restarted warfarin at home dose 5 mg daily INR is still subtherapeutic. He is discharged with home dose warfarin and Lovenox bridge. Recommended INR monitor, first check within 2 days to determine discontinuation of Lovenox and Coumadin dose adjustment. COPD No active exacerbation noted during the hospital Impaired mobility Noted impaired mobility. Patient was seen and evaluated by PT. He ambulated about 120 feet. He is discharged to home with home health for PT and long-term. Chronic respiratory failure with hypoxia Patient was maintained on baseline home oxygen. Vital Signs/Physical Exam: Temp Pulse Resp BP Pulse Ox 98.0 F 75 16 132/60 90 L 09/22/22 08:00 09/22/22 08:00 09/22/22 08:00 09/22/22 08:00 09/22/22 08:00 General: Alert, In no apparent distress, Oriented x3 HEENT: Mucous membr. moist/pink Neck: JVD not distended Respiratory: Clear to auscultation bilaterally, Normal air movement Cardiovascular: No edema, Regular rate/rhythm Gastrointestinal: Normal bowel sounds, Soft and benign, Non-distended Musculoskeletal: No swelling Integumentary: No rashes Neurological: Normal strength at 5/5 x4 extr Laboratory Data at Discharge: WBC 8.40 thou/uL (4.3-10.9) 09/21/22 03:10 Hgb 10.2 g/dL (13.6-17.9) L D 09/21/22 03:10 Hct 30.8 % (39.6-49.0) L 09/21/22 03:10 Plt Count 127 thou/uL (152-406) L 09/21/22 03:10 PT 15.8 SECONDS (9.5-12.5) H 09/22/22 03:46 INR 1.44 09/22/22 03:46 APTT 34.8 SECONDS (24.3-36.9) 09/18/22 03:01 Sodium 141 mEq/L (136-145) 09/21/22 03:10 Potassium 3.6 mEq/L (3.5-5.1) 09/21/22 03:10 BUN 13 mg/dL (7-18) 09/21/22 03:10 Creatinine 0.79 mg/dL (0.70-1.30) 09/21/22 03:10 Glucose 118 mg/dL (74-106) H 09/21/22 03:10 Magnesium 1.8 mg/dL (1.6-2.4) 09/19/22 03:13 Total Bilirubin 0.5 mg/dL (0.2-1.0) 09/17/22 23:58 AST 16 U/L (15-37) 09/17/22 23:58 ALT 23 U/L (16-61) 09/17/22 23:58 Alkaline Phosphatase 73 U/L (45-117) 09/17/22 23:58 Lipase 33 U/L (13-75) 09/17/22 23:58 Home Medications: Montelukast [Singulair] 10 mg PO BEDTIME 10/18/18 Albuterol Inhaler [Ventolin Inhaler] 2 puff IH Q6H PRN 02/25/22 Ascorbic Acid [Vitamin C] 1,000 mg PO DAILY 02/25/22 Cholecalciferol (Vitamin D3) [Vitamin D 1000 Iu Tab] 1,000 unit PO DAILY 02/25/22 Cyanocobalamin [Vitamin B-12] 1,000 mcg PO DAILY 02/25/22 Zinc Gluconate [Zinc] 50 mg PO DAILY 02/25/22 Fluticasone/Umeclidin/Vilanter [Trelegy Ellipta 100-62.5-25] 1 puff IH DAILY 09/18/22 Gabapentin 600 mg PO BID 09/18/22 Warfarin Sodium [Jantoven] 5 mg PO SEECOM 09/18/22 Enoxaparin Sodium [Lovenox 80 MG INJ*] 70 mg SQ Q12HR #10 syr 09/22/22 traMADol HCL [Ultram*] 50 mg PO Q4H PRN #20 tab 09/22/22 New Medications: Enoxaparin Sodium [Lovenox 80 MG INJ*] 70 mg SQ Q12HR #10 syr traMADol HCL [Ultram*] 50 mg PO Q4H PRN #20 tab PRN Reason: Pain Scale 5-7 (Moderate) Physician Discharge Instructions: Please check your INR within 2 days, Call your cardiology or PCP for an order to stop giving yourself the lovenox shots once your INR is between 2.5 to 3.5 and for Warfarin dose adjustment. Diet: AHA (Soft diet x 2 days and progress as tolerated) Activity: Ad taylor Followup: Frankie Perez MD [ACTIVE - CAN ADMIT] - 1 Week Bennett Alexander DO [Primary Care Provider] - 1-2 Weeks Time spent managing pt's care (in minutes): 40
[2022-09-22 15:20] VITALS: TEMP 98.7
[2022-09-22 17:52] VITALS: BP 122/62
--- NOTE | 2022-09-29 06:47 | OP ---
Date of Procedure: 09/28/2022 Surgeon: Frankie Perez MD Preoperative Diagnoses: Small bowel obstruction, abdominal pain, incarcerated inguinal hernia. Postoperative Diagnoses: Small bowel obstruction, incarcerated femoral hernia. Procedures: Diagnostic laparoscopy, open repair of incarcerated femoral hernia with mesh. Estimated Blood Loss: Less than 10 cc. Specimen: None. Findings: Instead of an inguinal hernia, the patient had an incarcerated femoral hernia. We were ab le to visualize the intestines through the femoral region, but it was not enough to determine if the intestines were viable or not with certainty, so I have to proceed to do a diagnostic laparoscopy to trying to minimize the chance of exploration and in that area we noticed that the viable has some per istalsis and recovered some color, so we did proceed not to do a bowel resection. I have to mention this patient is right now currently on Coumadin, which once again increased the chance of complicatio n including hematoma, but we have to do those conditions. The patient also has history of stroke and the family is concerned about that, so anticoagulation will be given after the surgery too, but once again represent a chance for hematoma. So under those conditions, I discussed the case with the [facility] doctor and the family and they are willing to a risk. Drains: Urinary catheter. Anesthesia: General plus local. Indication: This is the case of a patient, who comes to us with small bowel obstruction. They belie ve etiology of that is an inguinal hernia. The benefits, alternatives, and risks of open repair of l eft inguinal hernia with mesh, possible resection, possible laparotomy fully explained to the patient , which include, but not limited to infection, bleeding, damage to adjacent structures, anesthesia co mplication, nonhealing wound, abscess, hematomas, ND, and even . Especially in his case, he is on Coumadin, he is on blood thinners, and we cannot reverse that fast enough without compromising the bowel itself and require more surgery. So under those conditions, the family fully understand the r isks of hematomas , the primary doctor understands that too. Once again, we have compromis ed bowel, so we just have to go fast, so he signed a consent. He understands also after the postop c are, he may have some hematomas present in that area and ecchymosis. He understands we might have to do a bowel resection and even ostomy. He signed a consent. Procedure In Detail: The patient was brought to the operating room, placed in supine position. Anes thesia was done without complication. Abdominal area was prepped and draped in the usual sterile fas hion. Local anesthesia was applied followed by sharp incision of the skin in the inguinal region. T he incision was carried down to external oblique aponeurosis. When we opened the external oblique ap oneurosis, we noticed the patient has a femoral hernia just to the side of that aponeurosis, we see t hat and the intestines were coming through that. We were able to visualize the intestines, but it is a very tight area, very congested, so it looks viable at this moment, but he needs a second-look, le ave it closer so what we did just we proceeded with the diagnostic lap like I would mention in the ne xt few seconds. Once we have this, a femoral canal exposed after the sac was gently dissected free. The hernia orifice was inspected once again. The bowel was reduced and the area was ligated. The h ernia opening ligated with a Prolene. A plug of mesh was placed in that area to completely fill the defect without encroaching the femoral veins. This was placed in the femoral canal and sutured in pl maksim with interrupted Prolene and VersaTack. The wound was completely irrigated and the area was clos ed with 3-0 chromic and kimo. Once again, we have to spend more time than usual because we have t o do complete hemostasis of this area since the patient is on Coumadin. At that moment, we have a de cision that we look at the intestines long enough for any intestines are viable, I do not want to kush e that chance to take this patient back to surgery, especially when he has so many risks, so what I d id just proceed to do a diagnostic laparoscopy and take a second look at that intestines when it is r etracted. So, we did that through the ventral region under direct visualization. We opened the fasc ia under direct vision and put a Sonal trocar in. This allowed me to visualize with the laparoscope the area of the left inguinal region. The hernia is already fixed and when we looked at the intesti blanca and we see the behavior, we noticed intestines to be viable, recovered with color and has perista lsis. We ran the bowel and there was no other point of obstruction that we can see at this moment. So at that moment, I proceeded then to close the fascia with #1 Vicryl after deflating the pneumoperi toneum and closed the fascia with #1 Vicryl and the skin with kimo. Sponge count, instrument coun ts correct. The patient tolerated the procedure well. The patient was sent to recovery in stable co ndition. AMANDA/FABRICE Voice ID: [id number] Report ID: [id number]
== END 2022-09-22 17:16 | disposition home health service (06) | DRG 351 ==
LOC: ER 22:25 → ERHOLD 09-18 02:44 → 2ND 09-18 03:33
PROVIDERS: ADMIT Hospitalist; ATTEND Hospitalist
PROC: 0YU80JZ Supplement Left Femoral Region with Synthetic Substitute, Open Approach (ICD-10-PCS; principal; 2022-09-18 11:45)
DX: K41.30 Unilateral femoral hernia, with obstruction, without gangrene, not specified as recurrent (principal); J96.11 Chronic respiratory failure with hypoxia; I10 Essential (primary) hypertension; I48.91 Unspecified atrial fibrillation; I51.7 Cardiomegaly; J44.9 Chronic obstructive pulmonary disease, unspecified; K57.90 Diverticulosis of intestine, part unspecified, without perforation or abscess without bleeding; Z96.1 Presence of intraocular lens; Z95.1 Presence of aortocoronary bypass graft; Z95.0 Presence of cardiac pacemaker; Z95.2 Presence of prosthetic heart valve; Z88.5 Allergy status to narcotic agent; Z99.81 Dependence on supplemental oxygen; Z79.01 Long term (current) use of anticoagulants; Z98.42 Cataract extraction status, left eye; Z86.73 Personal history of transient ischemic attack (TIA), and cerebral infarction without residual deficits; Z90.49 Acquired absence of other specified parts of digestive tract; Z85.828 Personal history of other malignant neoplasm of skin; Z79.899 Other long term (current) drug therapy
CPT/HCPCS: 36415; 71045; 71260; 74018; 74177; 80048; 80053; 81001; 83690; 83735; 83880; 84484; 85025; 85610; 85730; 87086; 87088; 88302; 93005; 94010; 96361; 96374; 96375; 97116; 97161; 97530; 99285; J1170; J2001; J2175; J2250; J2405; J2543; J2704; J2765; J3010; J7030; J7120; Q9967

== ENCOUNTER 2024-03-24 21:49 | Observation (INO) | payer MEDICARE ==
--- NOTE | 2024-03-24 22:19 | RAD REPORT ---
EXAMINATION: ONE VIEW CHEST XR CLINICAL INDICATION: PALPITATIONS TECHNIQUE: Frontal chest projection is submitted. Examination is limited by patient positioning and t echnique. COMPARISON: 09/10/2022 FINDINGS: Diffuse COPD is present. The heart is moderately enlarged. Multilead pacer device. Sternotomy wires. IMPRESSION: Diffuse COPD is present.
[2024-03-24 22:53] LABS: Absolute Eosinophils 0.1 K/uL (0-0.5); Absolute Lymphocytes (CBC) 1.3 K/uL (0.7-4.9); Absolute Monocytes 0.6 K/uL (0.1-1.3); Absolute Neutrophil 5.6 K/uL (1.8-8.0); Basophils % 0.5 % (0-1.3); Eosinophils % 0.8 % (0-4.4); Hemoglobin 13.7 g/dL (13.6-17.9); Lymphocytes % 17.5 % (15.3-44.8); MCH 29.1 pg (27.0-35.0); MCHC 32.7 g/dL (32.0-36.0); MCV 89.2 fL (80-100); MPV 8.6 fL (7.6-11.3); Monocytes % 8.3 % (3.3-12.3); Neutrophils % 72.9 % (41.7-73.7); Nucleated Red Blood Cells % 0.1 % (0-0); Platelets 189 thou/uL (152-406); RBC Red Blood Cell Count 4.71 M/uL (4.33-5.43); Red Cell Distribution Width 14.2 % (12.1-15.2)
[2024-03-24 22:54] LABS: PT Prothrombin Time 29.5 SECONDS (9.4-12.5); Protime INR 2.71
[2024-03-24 23:04] LABS: ALT/SGPT 25 U/L (16-61); AST/SGOT 17 U/L (15-37); Albumin 3.3 g/dL (3.4-5.0); Alkaline Phosphatase 54 U/L (45-117); BUN Blood Urea Nitrogen 21 mg/dL (7-18); Bicarbonate 32 mEq/L (21-32); Bilirubin Total 0.4 mg/dL (0.2-1.0); Globulin 3.3 g/dL (2.3-3.5); Glomerular Filtration Rate 56 ml/min (=/>90); Glucose Level 154 mg/dL (74-106); Magnesium 2.3 mg/dL (1.6-2.4); NT PRO-BNP 529 pg/mL (<450); Protein, Total 6.6 g/dL (6.4-8.2); Sodium Level 140 mEq/L (136-145); Troponin High Sensitivity 9.9 pg/mL (<58.9)
[2024-03-24 23:09] LABS: Bilirubin Direct < 0.2 mg/dL (0-0.2); Bilirubin Indirect, Calculated 0.2 mg/dL (0.2-0.8)
--- NOTE | 2024-03-24 23:41 | ER ---
Nurse's Notes [facility] Name: Bharat Bauman Age: 83 yrs Sex: Male : 1940 Arrival Date: 03/24/2024 Time: 21:49 Bed 15 Private MD: Diagnosis: Bradycardia, dyspnea, anginal equivalent Presentation: 03/24 22:09 Chief complaint: Patient states: HAS BEEN MONITORING HEART RATE SINCE YESTERDAY AND IT dd2 WAS IN THE 30s AND 40s. PT STATES HAS A DUAL CHAMBER PACEMAKER. Coronavirus screen: At this time, the client does not indicate any symptoms associated with coronavirus-19. Ebola Screen: No symptoms or risks identified at this time. Initial Sepsis Screen: Does the patient meet any 2 criteria? No. Patient's initial sepsis screen is negative. Does the patient have a suspected source of infection? No. Patient's initial sepsis screen is negative. Risk Assessment: Do you want to hurt yourself or someone else? Patient reports no desire to harm self or others. Onset of symptoms was March 23, 2024. 22:09 Method Of Arrival: Ambulatory dd2 22:09 Acuity: MELANIE 4 dd2 Triage Assessment: 22:18 General: Appears uncomfortable, Behavior is calm, cooperative, appropriate for age. dd2 Pain: Denies pain. EENT: No deficits noted. No signs and/or symptoms were reported regarding the EENT system. Neuro: Level of Consciousness is awake, alert, obeys commands, Oriented to person, place, time, situation, Appropriate for age. Cardiovascular: Reports LOW HEART RATE Heart tones S1 S2 present Patient's skin is warm and dry. Rhythm is atrial pacer. Respiratory: Airway is patent Respiratory effort is even, unlabored, Respiratory pattern is regular, symmetrical, Breath sounds are diminished bilaterally. Denies shortness of breath. GI: No deficits noted. No signs and/or symptoms were reported involving the gastrointestinal system. Abdomen is flat, non-distended, Abd is soft and non tender. : No deficits noted. No signs and/or symptoms were reported regarding the genitourinary system. Derm: No deficits noted. No signs and/or symptoms reported regarding the dermatologic system. Musculoskeletal: No deficits noted. No signs and/or symptoms reported regarding the musculoskeletal system. Circulation, motion, and sensation intact. Range of motion: intact in all extremities. Historical: - Allergies: 22:18 Morphine; dd2 - Home Meds: 22:18 Warfarin Oral [Active]; dd2 - PMHx: 22:18 Atrial Fib; COPD; CVA; Hypertension; Pacemaker; dd2 - PSHx: 22:18 back surgery; cataracts; Cholecystectomy; inguinal hernia; mitral valve repair; Skin dd2 cancer removal; umbilical hernia repair x 2; - Immunization history:: Adult Immunizations up to date. - Infectious Disease History:: Denies. - Social history:: Smoking status: Patient/guardian denies using tobacco, the patient reports quitting approximately 48 years ago. Screenin:22 [facility] ED Fall Risk Assessment (Adult) History of falling in the last 3 months, dd2 including since admission No falls in past 3 months (0 pts) Confusion or Disorientation No (0 pts) Intoxicated or Sedated No (0 pts) Impaired Gait No (0 pts) Mobility Assist Device Used No (0 pt) Altered Elimination No (0 pt) Score/Fall Risk Level 0 - 2 = Low Risk Oriented to surroundings, Maintained a safe environment, Educated pt \T\ family on fall prevention, incl call for assistance when getting out of bed, Assessed \T\ reinforced patient's understanding of fall precautions, Hourly rounding (assess needs \T\ fall precautionary measures) done. Abuse screen: Denies threats or abuse. Nutritional screening: No deficits noted. Tuberculosis screening: No symptoms or risk factors identified. Assessment: 22:22 Reassessment: SEE TRIAGE ASSESSMENT FOR FULL ASSESSMENT. dd2 Vital Signs: 22:09 BP 101 / 90; Pulse 74; Resp 21; Temp 97.7; Pulse Ox 98% on R/A; Weight 71.67 kg; Height dd2 5 ft. 11 in. ; 22:22 BP 120 / 83; Pulse 73; Resp 20; Pulse Ox 98% on 2 lpm NC; dd2 23:17 BP 115 / 76; Pulse 84; Resp 19; Pulse Ox 100% on 2 lpm NC; dd2 22:09 Body Mass Index 22.04 (71.67 kg, 180.34 cm) dd2 Sam Coma Score: 22:22 Eye Response: spontaneous(4). Motor Response: obeys commands(6). Verbal Response: dd2 oriented(5). Total: 15. ED Course: 21:51 Patient arrived in ED. im 21:54 Alexander, Setul, MD is Attending Physician. sp3 22:06 MANI BURR, LAKESHA is Primary Nurse. dd2 22:07 No provider procedures requiring assistance completed. EKG done, by ED staff, reviewed dd2 by Caitlin Alexander MD. 22:11 XRAY Chest (1 view) In Process Unspecified. EDMS 22:17 Triage completed. dd2 22:18 Arm band placed on right wrist. Patient placed in an exam room, on a stretcher, on dd2 oxygen, on cardiac catheterization technician, on pulse oximetry. 22:22 Oxygen administration via nasal cannula \T\ 2L/min. dd2 22:22 Patient has correct armband on for positive identification. Bed in low position. Call dd2 light in reach. Side rails up X2. Client placed on continuous cardiac and pulse oximetry monitoring. NIBP monitoring applied. groundwater monitoring technician on. Door closed. Noise minimized. Warm blanket given. Pillow given. Verbal reassurance given. 22:38 Basic Metabolic Panel Sent. dd2 22:38 CBC with Diff Sent. dd2 22:38 LFT's Sent. dd2 22:38 Magnesium Sent. dd2 22:38 NT PRO-BNP Sent. dd2 22:38 PT-INR Sent. dd2 22:38 Troponin HS Sent. dd2 22:38 Initial lab(s) drawn, by me, sent to lab. Inserted saline lock: 20 gauge in right dd2 antecubital area, using aseptic technique. Blood collected. Flushed with 10 mL NS. 23:40 Eric Torres MD is Hospitalizing Provider. sp3 12 01:25 Patient admitted, IV remains in place. rg5 01:25 Provided Education on: need for admit. rg5 Administered Medications: No medications were administered Medication: 12 22:22 VIS not applicable for this client. dd2 Outcome: 23:40 Decision to Hospitalize by Provider. sp3 12 01:25 Admitted to ER Hold. [facility]. rg5 Condition: stable Instructed on the need for admit, 08:49 Patient left the ED. kc6 Signatures: Dispatcher [employer] EDIL Caitlin Alexander MD MD sp3 Мария Arredondo RN RN kc6 Sienna Graves Kelsey Maroul kmf Britton Richard RN RN rg5 MANI BURR RN RN dd2 Corrections: (The following items were deleted from the chart) 03/24 22:11 22:11 maren Patino
--- NOTE | 2024-03-24 23:41 | EDPHYS ---
Physician Documentation [facility] [place] Name: Bharat Bauman Age: 83 yrs Sex: Male : 1940 Arrival Date: 03/24/2024 Time: 21:49 Bed 15 Private MD: ED Physician Caitlin Alexander HPI: 03/24 22:18 This 83 yrs old Male presents to ER via Ambulatory with complaints of Low heart rate. sp3 22:18 83-year-old male with history of atrial fibrillation currently on warfarin presents sp3 with shortness of breath and bradycardia into the 30s. Patient states he has a dual-chamber pacemaker which will be interrogated. He denies any chest pain, abdominal pain, back pain, vomiting, diarrhea, syncope, near syncope, rash, bleeding or any other signs or symptoms on ROS at this time. Patient states his shortness of breath has been occurring for the last week which has gotten worse today coupled with the bradycardia.. Historical: - Allergies: 22:18 Morphine; dd2 - Home Meds: 22:18 Warfarin Oral [Active]; dd2 - PMHx: 22:18 Atrial Fib; COPD; CVA; Hypertension; Pacemaker; dd2 - PSHx: 22:18 back surgery; cataracts; Cholecystectomy; inguinal hernia; mitral valve repair; Skin dd2 cancer removal; umbilical hernia repair x 2; - Immunization history:: Adult Immunizations up to date. - Infectious Disease History:: Denies. - Social history:: Smoking status: Patient/guardian denies using tobacco, the patient reports quitting approximately 48 years ago. ROS: 22:21 Constitutional: Negative for fever, chills, and weight loss, Eyes: Negative for injury, sp3 pain, redness, and discharge, Neck: Negative for injury, pain, and swelling, Abdomen/GI: Negative for abdominal pain, nausea, vomiting, diarrhea, and constipation, Back: Negative for injury and pain, MS/Extremity: Negative for injury and deformity, Skin: Negative for injury, rash, and discoloration, Neuro: Negative for headache, weakness, numbness, tingling, and seizure, Psych: Negative for depression, anxiety, suicide ideation, homicidal ideation, and hallucinations, Allergy/Immunology: Negative for hives, rash, and allergies, Endocrine: Negative for neck swelling, polydipsia, polyuria, polyphagia, and marked weight changes, Hematologic/Lymphatic: Negative for swollen nodes, abnormal bleeding, and unusual bruising, 22:21 All other systems are negative, Exam: 22:22 Constitutional: This is a well developed, well nourished patient who is awake, alert, sp3 and in no acute distress. Head/Face: Normocephalic, atraumatic. Eyes: Pupils equal round and reactive to light, extra-ocular motions intact. Lids and lashes normal. Conjunctiva and sclera are non-icteric and not injected. Cornea within normal limits. Periorbital areas with no swelling, redness, or edema. ENT: Nares patent. No nasal discharge, no septal abnormalities noted. External auditory canals are clear. Oropharynx with no redness, swelling, or masses, exudates, or evidence of obstruction, uvula midline. Mucous membranes moist. Neck: Trachea midline, no thyromegaly or masses palpated, and no cervical lymphadenopathy. Supple, full range of motion without nuchal rigidity, or vertebral point tenderness. No Meningismus. Chest/axilla: Normal chest wall appearance and motion. Nontender with no deformity. No lesions are appreciated. Abdomen/GI: Soft, non-tender, with normal bowel sounds. No distension or tympany. No guarding or rebound. No evidence of tenderness throughout. Back: No spinal tenderness. No costovertebral tenderness. Full range of motion. Skin: Warm, dry with normal turgor. Normal color with no rashes, no lesions, and no evidence of cellulitis. MS/ Extremity: Pulses equal, no cyanosis. Neurovascular intact. Full, normal range of motion. Neuro: Awake and alert, GCS 15, oriented to person, place, time, and situation. Cranial nerves II-XII grossly intact. Motor strength 5/5 in all extremities. Sensory grossly intact. Cerebellar exam normal. Normal gait. Psych: Awake, alert, with orientation to person, place and time. Behavior, mood, and affect are within normal limits. 22:22 Cardiovascular: Atrial fibrillation with rate of 80, 22:22 ECG was reviewed by the Attending Physician. EKG demonstrates atrial fibrillation with sp3 80 bpm with normal intervals absent HI, normal axis, nonspecific diffuse ST's ST changes without evidence of acute ischemia and no ectopy. Vital Signs: 22:09 BP 101 / 90; Pulse 74; Resp 21; Temp 97.7; Pulse Ox 98% on R/A; Weight 71.67 kg; Height dd2 5 ft. 11 in. ; 22:22 BP 120 / 83; Pulse 73; Resp 20; Pulse Ox 98% on 2 lpm NC; dd2 23:17 BP 115 / 76; Pulse 84; Resp 19; Pulse Ox 100% on 2 lpm NC; dd2 22:09 Body Mass Index 22.04 (71.67 kg, 180.34 cm) dd2 Edwards Coma Score: 22:22 Eye Response: spontaneous(4). Motor Response: obeys commands(6). Verbal Response: dd2 oriented(5). Total: 15. MDM: 21:57 Medical Screening Exam initiated sp3 22:22 Data reviewed: vital signs, nurses notes, old medical records, lab test result(s), EKG, sp3 radiologic studies. ED course: 83-year-old male who states he has had periods of bradycardia and shortness of breath into the 30s. His pacemaker is set for a lower rate of 60 bpm. No bradycardic episodes on interrogation. Will place in observation and perform serial cardiac markers. Differential diagnosis includes acute coronary syndrome, electrolyte disturbance, arrhythmia, pacemaker failure, among others.. 03/24 21:55 Order name: Basic Metabolic Panel; Complete Time: 23:26 sp3 03/24 21:55 Order name: CBC with Diff; Complete Time: 23:26 sp3 03/24 21:55 Order name: LFT's; Complete Time: 23:26 sp3 03/24 21:55 Order name: Magnesium; Complete Time: 23:26 sp3 03/24 21:55 Order name: NT PRO-BNP; Complete Time: 23:26 sp3 03/24 21:55 Order name: PT-INR; Complete Time: 23:26 sp3 03/24 21:55 Order name: Troponin HS; Complete Time: 23:26 sp3 03/24 23:55 Order name: Urinalysis w/ reflexes EDMS 03/25 06:50 Order name: Protime (+INR) EDMS 03/25 06:57 Order name: CBC with Automated Diff EDMS 03/25 07:05 Order name: Basic Metabolic Panel EDMS 03/25 07:06 Order name: Troponin High Sensitivity EDMS 03/25 07:06 Order name: T4 Free EDMS 03/25 07:06 Order name: Magnesium EDWA 03/25 07:23 Order name: Thyroid Stimulating Hormone [facility] 03/25 07:41 Order name: Cortisol EDWA 03/24 21:55 Order name: XRAY Chest (1 view); Complete Time: 22:24 sp3 03/24 21:55 Order name: EKG; Complete Time: 21:55 sp3 03/24 23:55 Order name: CONS Physician Consult [facility] 03/24 23:56 Order name: Respiratory Therapy Consult [facility] 03/24 21:55 Order name: Cardiac monitoring; Complete Time: 22:07 sp3 03/24 21:55 Order name: EKG - Nurse/Tech; Complete Time: 22:07 sp3 03/24 21:55 Order name: IV Saline Lock; Complete Time: 22:38 sp3 03/24 21:55 Order name: Labs collected and sent; Complete Time: 22:38 sp3 03/24 21:55 Order name: O2 Per Protocol; Complete Time: 22:07 sp3 03/24 21:55 Order name: O2 Sat Monitoring; Complete Time: 22:07 sp3 Administered Medications: No medications were administered Disposition Summary: 03/24/24 23:40 Hospitalization Ordered Notes: Hospitalization Status: Observation sp3 Provider: Eric Torres sp3 Condition: Stable sp3 Problem: an acute exacerbation sp3 Symptoms: have worsened sp3 Bed/Room Type: Standard sp3 Location: Telemetry/MedSurg (observation)(03/25/24 07:27) iw Room Assignment: [facility](03/25/24 07:27) iw Diagnosis - Bradycardia, dyspnea, anginal equivalent sp3 Forms: - Medication Reconciliation Form sp3 - SBAR form sp3 - Leadership Thank You Letter sp3 Signatures: Dispatcher [employer] Rubi Mujica RN RN iw Garcia, Cindy, RN RN cg Caitlin Alexander MD MD sp3 MANI BURR RN RN dd2 Corrections: (The following items were deleted from the chart) 23:47 23:40 Telemetry/MedSurg (observation) sp3 cg 23:47 23:40 sp3 cg 03/25 07:27 03/24 23:47 [facility] ER HOLD cg iw 03/25 07:27 03/24 23:47 ERHOLD- cg iw
[2024-03-24] MEDS ORDERED: ALBUTEROL 2.5 MG/3 ML NEB SOL NEB PRN (23:49)
[2024-03-24] MEDS ORDERED: ACETAMINOPHEN 325 MG TABLET PO PRN (23:49)
--- NOTE | 2024-03-24 23:49 | P.HP ---
Certification for Inpatient Patient admitted to: Observation With expected LOS: <2 Midnights <Adia Gomez - Last Filed: 03/24/24 23:58> Patient History Date of Service: 03/24/24 Reason for admission: bradycardia History of Present Illness: 83-year-old man with a past medical history significant for COPD on home oxygen (3L daily via nasal cannula), atrial fibrillation on Coumadin, hard of hearing, and CAD s/p CABG and pacemaker placement scented to the emergency department complaining of bradycardia x 2 days. The patient is alert, and oriented x 3. He states he wears a daily monitor that tells him his heart rate, and for the past 2 days his heart rate has been in the 30s. He denies having palpitations/dizziness, but is concerned about his pacemaker functioning correctly. Also, the patient states he has a chronic productive cough. He denies dyspnea. The patient is a former smoker who quit 50 years ago. Patient denies fever, urinary symptoms, syncopal episodes, and loss of consciousness. 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 - Family History Brother -: Hypertension Sister -: Lung disease Mother -: Heart disease - Social History Smoking Status: Former smoker (quit 50 years ago) Alcohol use: No CD- Drugs: No Caffeine use: Yes <Adia Gomez - Last Filed: 03/24/24 23:58> Date of Service: 03/24/24 <Eric Torres - Last Filed: 03/25/24 05:19> Allergies morphine Adverse Reaction (Severe, Verified 09/18/22 04:51) AMS Home Medications: Montelukast [Singulair*] 10 mg PO BEDTIME 10/18/18 Albuterol Inhaler [Ventolin Inhaler*] 2 puff IH Q6H PRN 02/25/22 Ascorbic Acid [Vitamin C] 1,000 mg PO DAILY 02/25/22 Cholecalciferol (Vitamin D3) [Vitamin D 1000 Iu Tab*] 1,000 unit PO DAILY 02/25/22 Cyanocobalamin [Vitamin B-12*] 1,000 mcg PO DAILY 02/25/22 Zinc Gluconate [Zinc] 50 mg PO DAILY 02/25/22 Fluticasone/Umeclidin/Vilanter [Trelegy Ellipta 100-62.5-25] 1 puff IH DAILY 09/18/22 Gabapentin 600 mg PO BID 09/18/22 Warfarin Sodium [Jantoven] 5 mg PO SEECOM 09/18/22 Enoxaparin Sodium [Lovenox 80 MG INJ*] 70 mg SQ Q12HR #10 syr 09/22/22 traMADol HCL [Ultram*] 50 mg PO Q4H PRN #20 tab 09/22/22 Review of Systems Respiratory: Cough, Shortness of Breath <Gomez,Adia Q - Last Filed: 03/24/24 23:58> Physical Examination - Vital Signs Temperature: 97.7 F Blood Pressure: 115/79 Pulse: 37 Respirations: 18 Pulse Ox (%): 100 (nasal cannula) - Physical Exam General: Alert, In no apparent distress, Oriented x3 HEENT: Atraumatic, Normocephalic Neck: JVD not distended Respiratory: Crackles/rales (mild crackles/rales b/l) Cardiovascular: No edema, No gallops, No rubs, No murmurs, Other (heart rate of 37-bradycardia) Gastrointestinal: Normal bowel sounds, Non-distended, No tenderness Musculoskeletal: No swelling, No erythema, No tenderness, No warmth Neurological: Normal strength at 5/5 x4 extr, Sensation intact - Studies Laboratory Data (last 24 hrs) 03/24/24 03/24/24 03/24/24 22:29 22:29 22:29 WBC 7.70 Hgb 13.7 Hct 42.0 Plt Count 189 PT 29.5 H INR 2.71 Sodium 140 Potassium 4.0 BUN 21 H Creatinine 1.27 Glucose 154 H Magnesium 2.3 Total Bilirubin 0.4 AST 17 ALT 25 Alkaline Phosphatase 54 <Gomez,Adia Q - Last Filed: 03/24/24 23:58> - Studies Laboratory Data (last 24 hrs) 03/24/24 03/24/24 03/24/24 22:29 22:29 22:29 WBC 7.70 Hgb 13.7 Hct 42.0 Plt Count 189 PT 29.5 H INR 2.71 Sodium 140 Potassium 4.0 BUN 21 H Creatinine 1.27 Glucose 154 H Magnesium 2.3 Total Bilirubin 0.4 AST 17 ALT 25 Alkaline Phosphatase 54 <Eric Torres - Last Filed: 03/25/24 05:19> Assessment and Plan - Problems (Diagnosis) (1) Bradycardia Current Visit: Yes Status: Acute (2) Hard of hearing Current Visit: Yes Status: Acute (3) A-fib Current Visit: Yes Status: Acute (4) CAD (coronary artery disease) Current Visit: Yes Status: Acute (5) COPD (chronic obstructive pulmonary disease) Onset Date: 08/05/14 Current Visit: No Status: Acute - Plan Bradycardia: Admit to observation Telemetry ordered Pacemaker interrogated in ED-no abnormality Cardiology consulted Negative troponin BNP improved since 09/13 COPD: Continue with oxygen via nasal cannula DuoNebs as needed Tessalon Perles for cough CXR showed diffuse COPD Atrial fibrillation: Now with pacemaker placement Will monitor via telemetry Holding Coumadin Heparin ordered - Advance Directives Does patient have a Living Will: No Does patient have a Durable POA for Healthcare: No <Adia Gomez - Last Filed: 03/24/24 23:58> Date of Service: 03/24/24 Patient was seen and examined. Events of the last 24 hours have been noted. Spoke with with SUSHIL regarding patient's clinical picture after evaluating and examining the patient independently. I performed a substantial part of the MDM during this patient's care today. I personally made or approved the documented management plan and acknowledge its risk of complications. I agree with the findings and documentation provided in the SUSHIL's notes. Patient presented with bradycardia arrhythmia; however, pacemaker set at 60. Patient possibly with atrial fibrillation with slow ventricular response. Cardiology consulted. Heart rate in the 70s to 80s. Will monitor patient and await cardiology consultation. Check additional labs including electrolytes and thyroid studies. Check troponins and BNP as well. <Eric Torres - Last Filed: 03/25/24 05:19>
[2024-03-24] MEDS ORDERED: BENZONATATE 100 MG CAP PO PRN (23:55)
[2024-03-25 00:35] VITALS: BMI 22.0
[2024-03-25 00:43] VITALS: O2SAT 98
[2024-03-25] MEDS ORDERED: IPRATROPIUM BROM 0.5MG/2.5ML NEB SCH (01:00)
[2024-03-25] MEDS: HEPARIN 5000 UNIT/ML 1 ML VIAL SQ SCH (01:00)
[2024-03-25 06:48] LABS: Absolute Eosinophils 0.2 K/uL (0-0.5); Absolute Lymphocytes (CBC) 1.7 K/uL (0.7-4.9); Absolute Monocytes 0.7 K/uL (0.1-1.3); Absolute Neutrophil 3.9 K/uL (1.8-8.0); Basophils % 0.6 % (0-1.3); Eosinophils % 3.1 % (0-4.4); Hematocrit 39.3 % (39.6-49.0); Hemoglobin 12.6 g/dL (13.6-17.9); Lymphocytes % 25.7 % (15.3-44.8); MCHC 32.1 g/dL (32.0-36.0); MCV 90.3 fL (80-100); MPV 8.4 fL (7.6-11.3); Monocytes % 10.4 % (3.3-12.3); Neutrophils % 60.2 % (41.7-73.7); Platelets 158 thou/uL (152-406); RBC Red Blood Cell Count 4.35 M/uL (4.33-5.43); Red Cell Distribution Width 14.4 % (12.1-15.2)
[2024-03-25 06:50] LABS: PT Prothrombin Time 29.7 SECONDS (9.4-12.5); Protime INR 2.73
[2024-03-25 07:05] LABS: Anion Gap 5.8 mEq/L (5.0-15.0); Magnesium 2.3 mg/dL (1.6-2.4); Potassium 3.8 mEq/L (3.5-5.1); Troponin High Sensitivity 10.9 pg/mL (<58.9)
[2024-03-25] MEDS: GABAPENTIN 300 MG CAP PO SCH (09:02)
--- NOTE | 2024-03-25 09:33 | P.CNS ---
Date of Consult: 03/25/24 Chief Complaint: bradycardia History of Present Illness: Patient with PMH of CAD s/p CABG, atrial fibrillation, pacemaker placement, presented with generalized weakness, report pulse oximetery reading HR in the 30s, denies chest pain, no palpitations, no SOB, no syncope. Allergies morphine Adverse Reaction (Severe, Verified 09/18/22 04:51) AMS Home medications list reviewed: Yes Home Medications: Montelukast [Singulair*] 10 mg PO BEDTIME 10/18/18 Albuterol Inhaler [Ventolin Inhaler*] 2 puff IH Q6H PRN 02/25/22 Ascorbic Acid [Vitamin C] 1,000 mg PO DAILY 02/25/22 Cholecalciferol (Vitamin D3) [Vitamin D 1000 Iu Tab*] 1,000 unit PO DAILY 02/25/22 Cyanocobalamin [Vitamin B-12*] 1,000 mcg PO DAILY 02/25/22 Zinc Gluconate [Zinc] 50 mg PO DAILY 02/25/22 Fluticasone/Umeclidin/Vilanter [Trelegy Ellipta 100-62.5-25] 1 puff IH DAILY 09/18/22 Warfarin Sodium [Jantoven] 5 mg PO SEECOM 09/18/22 predniSONE [Deltasone*] 10 mg PO DAILY 03/25/24 - Past Medical/Surgical History Diabetic: No -: Stroke 2018 -: COPD-emphysema, 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 - Family History Brother Medical History: Hypertension Sister Medical History: Lung disease Mother Medical History: Heart disease - Social History Smoking Status: Former smoker Alcohol use: No CD- Drugs: No Caffeine use: Yes Place of Residence: Home Review of Systems 10-point ROS is otherwise unremarkable Physical Examination Temp Pulse Resp BP Pulse Ox 97.6 F 79 22 H 141/78 H 98 03/25/24 09:02 03/25/24 09:02 03/25/24 09:02 03/25/24 09:02 03/25/24 09:02 General: Alert, In no apparent distress HEENT: Atraumatic, PERRLA, Mucous membr. moist/pink, EOMI, Sclerae nonicteric Neck: Supple, 2+ carotid pulse no bruit, No LAD, Without JVD or thyroid abnormality Respiratory: Clear to auscultation bilaterally, Normal air movement Cardiovascular: Regular rate/rhythm, Normal S1 S2 Gastrointestinal: Normal bowel sounds, No tenderness Musculoskeletal: No tenderness Integumentary: No rashes Neurological: Normal gait, Normal speech, Normal tone, Normal affect Lymphatics: No axilla or inguinal lymphadenopathy Laboratory Data (last 24 hrs) 03/24/24 03/24/24 03/24/24 22:29 22:29 22:29 WBC 7.70 Hgb 13.7 Hct 42.0 Plt Count 189 PT 29.5 H INR 2.71 Sodium 140 Potassium 4.0 BUN 21 H Creatinine 1.27 Glucose 154 H Magnesium 2.3 Total Bilirubin 0.4 AST 17 ALT 25 Alkaline Phosphatase 54 - Problems (1) A-fib Current Visit: Yes Status: Acute Plan: Patient is on Coumadin, recommend resuming home dose, patient last INR is 2.7, pulse is currently paced. 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 (2) Bradycardia Current Visit: Yes Status: Acute Plan: Pacemaker interrogation shows normal functioning PM with 2.7 yrs battery life, advised patient that it is normal for PM to have latency period before pacing and no worries about drop in HR on pulse oximeter. (3) CAD (coronary artery disease) Current Visit: Yes Status: Acute Plan: Denies having chest pain, enzymes are negative. Continue ASA and statin Cardiology will sign off, please call with any questions.
[2024-03-25 10:21] LABS: Specific Gravity 1.011 (1.005-1.030); Urine Bilirubin NEGATIVE (Negative); Urine Blood Negative (Negative); Urine Clarity Clear (Clear); Urine Color Light-Yellow (Yellow); Urine Glucose NEGATIVE (Negative); Urine Ketones NEGATIVE (Negative); Urine Microscopic Reflex YN NO UMIC; Urine Nitrite NEGATIVE (Negative); Urine Protein NEGATIVE (Negative); Urine Urobilinogen Normal (Normal); Urine pH 6.5 (5.0-7.0)
[2024-03-25 12:25] VITALS: BP 131/72; TEMP 97.3
--- NOTE | 2024-03-25 13:50 | P.DS ---
Admission Date: 03/24/24 Discharge Date: 03/25/24 Disposition: ROUTINE DISCHARGE Discharge Condition: GOOD Reason for Admission: bradycardia Brief History of Present Illness: 83-year-old man with a past medical history significant for COPD on home oxygen (3L daily via nasal cannula), atrial fibrillation on Coumadin, hard of hearing, and CAD s/p CABG and pacemaker placement presented to the emergency department complaining of bradycardia by his pulse oximetry in the range of 40 to 50s. He denies any dizziness presyncope or syncope Hospital Course: His telemetry during observation showed atrial fibrillation with intermittent paced rhythm with a heart rate in the range of 60 to 70s. His pacemaker was interrogated and demonstrated good function with full battery. Cardiology cleared the patient for discharge. 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 #1 atrial fibrillation with controlled ventricular response on Coumadin with therapeutic INR 2. Good functioning permanent pacemaker #3 coronary artery disease status post CABG #4 advanced COPD on home oxygen and steroid-dependent Vital Signs/Physical Exam: Temp Pulse Resp BP Pulse Ox 97.3 F 52 19 131/72 97 03/25/24 12:00 03/25/24 12:00 03/25/24 12:00 03/25/24 12:00 03/25/24 12:00 Laboratory Data at Discharge: WBC 6.50 thou/uL (4.3-10.9) 03/25/24 06:30 Hgb 12.6 g/dL (13.6-17.9) L D 03/25/24 06:30 Hct 39.3 % (39.6-49.0) L 03/25/24 06:30 Plt Count 158 thou/uL (152-406) 03/25/24 06:30 PT 29.7 SECONDS (9.4-12.5) H 03/25/24 06:30 INR 2.73 03/25/24 06:30 Sodium 142 mEq/L (136-145) 03/25/24 06:30 Potassium 3.8 mEq/L (3.5-5.1) 03/25/24 06:30 BUN 17 mg/dL (7-18) 03/25/24 06:30 Creatinine 1.10 mg/dL (0.70-1.30) 03/25/24 06:30 Glucose 108 mg/dL (74-106) H 03/25/24 06:30 Magnesium 2.3 mg/dL (1.6-2.4) 03/25/24 06:30 Total Bilirubin 0.4 mg/dL (0.2-1.0) 03/24/24 22:29 AST 17 U/L (15-37) 03/24/24 22:29 ALT 25 U/L (16-61) 03/24/24 22:29 Alkaline Phosphatase 54 U/L (45-117) 03/24/24 22:29 Home Medications: Montelukast [Singulair*] 10 mg PO BEDTIME 10/18/18 Albuterol Inhaler [Ventolin Inhaler*] 2 puff IH Q6H PRN 02/25/22 Ascorbic Acid [Vitamin C] 1,000 mg PO DAILY 02/25/22 Cholecalciferol (Vitamin D3) [Vitamin D 1000 Iu Tab*] 1,000 unit PO DAILY 02/25/22 Cyanocobalamin [Vitamin B-12*] 1,000 mcg PO DAILY 02/25/22 Zinc Gluconate [Zinc] 50 mg PO DAILY 02/25/22 Fluticasone/Umeclidin/Vilanter [Trelegy Ellipta 100-62.5-25] 1 puff IH DAILY 09/18/22 Warfarin Sodium [Jantoven] 5 mg PO SEECOM 09/18/22 predniSONE [Deltasone*] 10 mg PO DAILY 03/25/24 Diet: AHA Activity: Ad taylor Followup: SINDHU Dean MD [Primary Care Provider] -
[2024-03-25] MEDS ORDERED: MONTELUKAST 10 MG TAB PO SCH (21:00)
== END 2024-03-25 14:35 | disposition home or self-care (01) ==
LOC: ER 21:49 → ERHOLD 23:49 → 4TH 03-25 07:36
PROVIDERS: ADMIT Hospitalist; ATTEND Internal Medicine
DX: R00.1 Bradycardia, unspecified (principal); I48.11 Longstanding persistent atrial fibrillation; I25.10 Atherosclerotic heart disease of native coronary artery without angina pectoris; J44.9 Chronic obstructive pulmonary disease, unspecified; R05.9 Cough, unspecified; H91.90 Unspecified hearing loss, unspecified ear; Z87.891 Personal history of nicotine dependence; Z95.1 Presence of aortocoronary bypass graft; Z88.5 Allergy status to narcotic agent; Z79.01 Long term (current) use of anticoagulants; Z86.73 Personal history of transient ischemic attack (TIA), and cerebral infarction without residual deficits; Z99.81 Dependence on supplemental oxygen
CPT/HCPCS: 93005; 85025 ×2; 80048 ×2; 36415; 83735 ×2; 85610 ×2; 80076; 84443; 81003; 84484 ×2; 84439; 82533; 83880; 71045; 99285; J7644; G0378 ×3; J1644

== ENCOUNTER 2024-07-01 10:38 | Inpatient (IN) | payer OTHER ==
[2024-07-01] MEDS ORDERED: FAMOTIDINE 20 MG/2 ML VIAL IV ONE (11:50)
[2024-07-01] MEDS ORDERED: CEFTRIAXONE 1000 MG/VIAL ONE (11:50)
[2024-07-01] MEDS ORDERED: NA CHLORIDE 0.9% 1,000 ML ONE (11:51)
[2024-07-01 11:56] LABS: Absolute Eosinophils 0.2 K/uL (0-0.5); Absolute Lymphocytes (CBC) 1.2 K/uL (0.7-4.9); Absolute Monocytes 0.9 K/uL (0.1-1.3); Absolute Neutrophil 7.9 K/uL (1.8-8.0); Basophils % 0.3 % (0-1.3); Eosinophils % 2.2 % (0-4.4); Hematocrit 38.7 % (39.6-49.0); Hemoglobin 12.8 g/dL (13.6-17.9); Lymphocytes % 11.6 % (15.3-44.8); MCH 29.3 pg (27.0-35.0); MCV 88.7 fL (80-100); MPV 8.5 fL (7.6-11.3); Monocytes % 8.5 % (3.3-12.3); Neutrophils % 77.4 % (41.7-73.7); PT Prothrombin Time 37.9 SECONDS (10-13.0); Platelets 197 thou/uL (152-406); Protime INR 3.53; RBC Red Blood Cell Count 4.36 M/uL (4.33-5.43); Red Cell Distribution Width 14.6 % (12.1-15.2)
[2024-07-01 12:02] LABS: Albumin/Globulin Ratio 0.8 (1.1-1.8); Anion Gap 5.7 mEq/L (5.0-15.0); Bilirubin Direct 0.2 mg/dL (0-0.2); Bilirubin Indirect, Calculated 0.4 mg/dL (0.2-0.8); Bilirubin Total 0.6 mg/dL (0.2-1.0); Globulin 3.7 g/dL (2.3-3.5); Magnesium 2.4 mg/dL (1.6-2.4); Potassium 3.7 mEq/L (3.5-5.1); Protein, Total 6.7 g/dL (6.4-8.2); Troponin High Sensitivity 10.7 pg/mL (<58.9)
--- NOTE | 2024-07-01 12:48 | RAD REPORT ---
EXAMINATION: ONE VIEW CHEST XR CLINICAL INDICATION: Male, 84 years old.,Cough;Hemoptysis TECHNIQUE: Frontal chest projection is submitted. Examination is limited by patient positioning and t echnique. COMPARISON: 03/24/2024 FINDINGS: The lungs are diffusely emphysematous. Patchy left retrocardiac opacity with loss of silhouetting of the hemidiaphragm. No pneumothorax or sizable effusion. Heart is again moderately enlarged with sequelae of median sternotomy. Left chest wall pacer present. Mediastinal contours are unremarkable. IMPRESSION: Patchy left retrocardiac airspace opacification, concerning for pneumonia.
--- NOTE | 2024-07-01 13:22 | RAD REPORT ---
EXAMINATION: CTA CHEST PE CLINICAL INDICATION: Cough. Hemoptysis TECHNIQUE: 100 cc 370 Isovue administered intravenously. This examination was performed according to an angiographic protocol with 3D post-processing. This involves 3D reconstructions, MIPs, volume rendered images and/or shaded surface rendering. One or more of the following dose reduction techniqu es were used: Automated exposure control, adjustment of the mA and/or kV according to patient size, and/or iterative reconstruction. Unless otherwise specified, incidental findings do not require dedic ated imaging follow-up. [id number]. COMPARISON: 2019 FINDINGS: Images are degraded by patient motion artifact. A pulmonary embolus is not seen. An aortic aneurysm not noted. No pleural effusion. No pericardial effusion. Increased density is present within the trachea and left mainstem bronchus. Left lower lobe opacities are present. Large bulla are present within the lungs. The left upper lobe is most involved. IMPRESSION: No evidence of a pulmonary embolism Increased density within the trachea and left mainstem bronchus. Opacities left lower lobe. This coul d represent postobstructive pneumonitis/atelectasis or probably less likely mass. Bronchoscopy is recommended. Marked COPD
--- NOTE | 2024-07-01 13:53 | EDPHYS ---
Physician Documentation [facility] Name: Bharat Bauman Age: 84 yrs Sex: Male : 1940 Arrival Date: 07/01/2024 Time: 10:38 Bed 19 Private MD: JENNIFER Physician Alec Robert HPI: 07/01 13:42 This 84 yrs old Male presents to ER via Wheelchair with complaints of amalia Coughing up blood. 13:42 The patient has shortness of breath at rest, with light activity. Onset: The amalia symptoms/episode began/occurred 2 day(s) ago. Duration: The symptoms are continuous, and are steadily getting worse. The patient's shortness of breath is aggravated by coughing, light activity. cough up bloody sputum. Associated signs and symptoms: Pertinent positives: productive cough. Severity of symptoms: At their worst the symptoms were moderate in the emergency department the symptoms are unchanged. The patient or guardian reports difficulty breathing, flu symptoms, arthralgias, low-grade fever, myalgias, no appetite. Severity of symptoms: At their worst the symptoms were moderate, in the emergency department the symptoms are unchanged. Modifying factors: The symptoms are alleviated by nothing, the symptoms are aggravated by exertion. Historical: - Allergies: 11:14 Morphine; hb - PMHx: 11:14 Atrial Fib; COPD; CVA; Hypertension; Pacemaker; hb - PSHx: 11:14 back surgery; cataracts; Cholecystectomy; inguinal hernia; mitral valve repair; Skin hb cancer removal; umbilical hernia repair x 2; - Immunization history:: Adult Immunizations up to date. - Infectious Disease History:: Denies. - Social history:: Smoking status: Patient/guardian denies using tobacco, the patient reports quitting approximately 50 years ago. ROS: 13:44 Constitutional: Negative for fever, chills, and weight loss, Eyes: Negative for injury, amalia pain, redness, and discharge, ENT: Negative for injury, pain, and discharge, Neck: Negative for injury, pain, and swelling, Cardiovascular: Negative for chest pain, palpitations, and edema, Abdomen/GI: Negative for abdominal pain, nausea, vomiting, diarrhea, and constipation, Back: Negative for injury and pain, : Negative for injury, bleeding, discharge, and swelling, MS/Extremity: Negative for injury and deformity, Skin: Negative for injury, rash, and discoloration, Neuro: Negative for headache, weakness, numbness, tingling, and seizure, Psych: Negative for depression, anxiety, suicide ideation, homicidal ideation, and hallucinations, Allergy/Immunology: Negative for hives, rash, and allergies, Endocrine: Negative for neck swelling, polydipsia, polyuria, polyphagia, and marked weight changes, Hematologic/Lymphatic: Negative for swollen nodes, abnormal bleeding, and unusual bruising, 13:44 Respiratory: Positive for cough, shortness of breath, wheezing, expiratory, Exam: 13:44 Constitutional: This is a well developed, well nourished patient who is awake, alert, amalia and in no acute distress. Head/Face: Normocephalic, atraumatic. Eyes: Pupils equal round and reactive to light, extra-ocular motions intact. Lids and lashes normal. Conjunctiva and sclera are non-icteric and not injected. Cornea within normal limits. Periorbital areas with no swelling, redness, or edema. ENT: Nares patent. No nasal discharge, no septal abnormalities noted. Tympanic membranes are normal and external auditory canals are clear. Oropharynx with no redness, swelling, or masses, exudates, or evidence of obstruction, uvula midline. Mucous membranes moist. Neck: Trachea midline, no thyromegaly or masses palpated, and no cervical lymphadenopathy. Supple, full range of motion without nuchal rigidity, or vertebral point tenderness. No Meningismus. Chest/axilla: Normal chest wall appearance and motion. Nontender with no deformity. No lesions are appreciated. Cardiovascular: Regular rate and rhythm with a normal S1 and S2. No gallops, murmurs, or rubs. Normal PMI, no JVD. No pulse deficits. Abdomen/GI: Soft, non-tender, with normal bowel sounds. No distension or tympany. No guarding or rebound. No evidence of tenderness throughout. Back: No spinal tenderness. No costovertebral tenderness. Full range of motion. Male : Normal genitalia with no discharge or lesions. Skin: Warm, dry with normal turgor. Normal color with no rashes, no lesions, and no evidence of cellulitis. MS/ Extremity: Pulses equal, no cyanosis. Neurovascular intact. Full, normal range of motion., bilateral aka Neuro: Awake and alert, GCS 15, oriented to person, place, time, and situation. Cranial nerves II-XII grossly intact. Motor strength 5/5 in all extremities. Sensory grossly intact. Cerebellar exam normal. Normal gait. Psych: Awake, alert, with orientation to person, place and time. Behavior, mood, and affect are within normal limits. 13:44 ECG was reviewed by the Attending Physician. 13:44 Respiratory: the patient does not display signs of respiratory distress, Respirations: no acute changes, is not noted, Breath sounds: bronchial sounds, decreased breath sounds, that are mild, that are moderate, rhonchi, that are mild, stridor, is not appreciated, + upper airway congestion. wheezing: expiratory Respiratory rate: 20 Vital Signs: 11:12 BP 102 / 63; Pulse 95; Resp 20; Temp 97.1; Pulse Ox 100% on R/A; Weight 73.48 kg; hb Height 5 ft. 11 in. ; Pain 8/10; 15:05 BP 122 / 63; Pulse 75; Resp 18 S; Pulse Ox 99% on 2 lpm NC; aa5 17:00 BP 124 / 58; Pulse 77; Resp 17; Pulse Ox 100% on 2 lpm NC; Pain 0/10; aa5 11:12 Body Mass Index 22.59 (73.48 kg, 180.34 cm) hb 11:12 Pain Scale: Adult hb 17:00 Pain Scale: Adult aa5 MDM: 10:41 Medical Screening Exam initiated 07/01 10:49 Order name: Basic Metabolic Panel; Complete Time: 13:26 07/01 10:49 Order name: CBC with Diff; Complete Time: 13:26 07/01 10:49 Order name: LFT's; Complete Time: 13:26 07/01 10:49 Order name: Magnesium; Complete Time: 13:26 07/01 10:49 Order name: NT PRO-BNP; Complete Time: 13:26 07/01 10:49 Order name: PT-INR; Complete Time: 13:26 07/01 10:49 Order name: Troponin HS; Complete Time: 13:26 07/01 10:49 Order name: Blood Culture Adult (2) 07/01 10:49 Order name: XRAY Chest (1 view); Complete Time: 13:26 07/01 10:49 Order name: CT Chest For PE Angio; Complete Time: 13:26 [facility] 07/01 15:01 Order name: CONS Physician Consult EDNC 07/01 10:49 Order name: Cardiac monitoring; Complete Time: 58 [facility] 07/01 10:49 Order name: EKG - Nurse/Tech; Complete Time: 11:37 [facility] 07/01 10:49 Order name: IV Saline Lock; Complete Time: 11: [facility] 07/01 10:49 Order name: Labs collected and sent; Complete Time: : [facility] 07/01 10:49 Order name: O2 Per Protocol; Complete Time: [facility] 07/01 10:49 Order name: O2 Sat Monitoring; Complete Time: : [facility] EC:44 Rate is 67 beats/min. Rhythm is regular. QRS Temple is Normal. TN interval is normal. QRS amalia interval is normal. QT interval is normal. No Q waves. T waves are Normal. No ST changes noted. Clinical impression: Abnormal EKG without significant change and No evidence of ischemia. Interpreted by me. Reviewed by me. Administered Medications: 12:00 Drug: NS 0.9% IV 500 ml 500 ml IV at 1 bolus once; to be given as a bolus over 30 aa5 minutes Volume: 500 ml; Route: IV; Rate: 1 bolus; Site: left antecubital; 12:30 Follow up: IV Status: Completed infusion; IV Intake: 500ml aa5 12:00 Drug: Famotidine IVP 20 mg IVP once; dilute with 10 mL 0.9% NaCl; give over 2 minutes aa5 Route: IVP; Site: left antecubital; 12:05 Follow up: Response: No adverse reaction aa5 12:01 Drug: Rocephin IV 1 grams IV at per protocol once; Given slow IV push per pharmacy aa5 instructions Route: IV; Rate: per protocol; Site: left antecubital; 12:10 Follow up: Response: No adverse reaction aa5 12:30 Drug: NS 0.9% IV 500 ml 500 ml IV at 125 ml/hr once Volume: 500 ml; Route: IV; Rate: aa5 125 ml/hr; Site: left antecubital; 16:30 Follow up: IV Status: Completed infusion; IV Intake: 500ml aa5 15:08 Drug: MethylPrednisoLONE IVP 125 mg IVP once Route: IVP; Site: left antecubital; aa5 15:15 Follow up: Response: No adverse reaction aa5 15:09 Drug: Piperacillin-Tazobactam IVPB 3.375 grams IVPB once over 60 mins; (mix in NS 100 aa5 mL) Route: IVPB; Infused Over: 60 mins; Site: left antecubital; 16:09 Follow up: Response: No adverse reaction; IV Status: Completed infusion aa5 15:09 Drug: Levalbuterol Inhalation 2.5 mg Inhalation once Route: Inhalation; aa5 15:09 Drug: Ipratropium Inhalation Aerosol 0.5 mg Inhalation once Route: Inhalation; aa5 Disposition Summary: 07/01/24 13:52 Hospitalization Ordered Notes: Hospitalization Status: Inpatient Admission amalia Provider: Garret Salvador cha Location: Telemetry/MedSurg (Inpatient) amalia Condition: Fair amalia Problem: new amalia Symptoms: have improved amalia Bed/Room Type: Standard amalia Room Assignment: 230(07/01/24 16:14) bd Diagnosis - Hemoptysis amalia - Pneumonia due to other specified bacteria - left amalia - COPD/ Chronic obstructive pulmonary disease with acute lower respiratory infection amalia - Presence of cardiac pacemaker amalia - Adverse effect of anticoagulant antagonists, vitamin K and other coagulants amalai - custodial (current) use of anticoagulants amalia Forms: - Medication Reconciliation Form amalia - SBAR form amalia - Leadership Thank You Letter amalia Signatures: Dispatcher [employer] EDMS Crissy Krishna Corey, MD MD cha Calderon, Audri RN RN aa5 Hailey Doe RN RN Corrections: (The following items were deleted from the chart) 10:50 10:50 BASIC METABOLIC PANEL+C.LAB.BRZ ordered. EDMS EDMS 10:50 10:50 CBC+H.LAB.BRZ ordered. EDMS EDMS 10:50 10:50 HEPATIC FUNCTION+C.LAB.BRZ ordered. EDMS EDMS 10:50 10:50 MAGNESIUM+C.LAB.BRZ ordered. EDMS EDMS 10:50 10:50 PROBNP+C.LAB.BRZ ordered. EDMS EDMS 10:50 10:50 PROTIME (+INR)+COAG.LAB.BRZ ordered. EDMS EDMS 10:50 10:50 Troponin High Sensitivity+C.LAB.BRZ ordered. EDMS EDMS 10:50 10:50 BLOOD CULTURE*+BA.LAB.BRZ ordered. EDMS EDMS 10:50 10:50 Chest Single View+RAD.RAD.BRZ ordered. EDMS EDMS 10:50 10:50 Chest For PE Angio+CT.RAD.BRZ ordered. EDMS EDMS 16:14 13:52 amalia bd
--- NOTE | 2024-07-01 13:53 | ER ---
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 hb On 2LNC home O2. Hx of afib, takes Jantoven. Coronavirus screen: At this time, the client does not indicate any symptoms associated with coronavirus-19. Ebola Screen: No symptoms or risks identified at this time. Initial Sepsis Screen: Does the patient meet any 2 criteria? No. Patient's initial sepsis screen is negative. Does the patient have a suspected source of infection? No. Patient's initial sepsis screen is negative. Risk Assessment: Do you want to hurt yourself or someone else? Patient reports no desire to harm self or others. Onset of symptoms was June 28, 2024. 11:12 Method Of Arrival: Wheelchair hb 11:12 Acuity: MELANIE 3 hb Historical: - Allergies: 11:14 Morphine; hb - PMHx: 11:14 Atrial Fib; COPD; CVA; Hypertension; Pacemaker; hb - PSHx: 11:14 back surgery; cataracts; Cholecystectomy; inguinal hernia; mitral valve repair; Skin hb cancer removal; umbilical hernia repair x 2; - Immunization history:: Adult Immunizations up to date. - Infectious Disease History:: Denies. - Social history:: Smoking status: Patient/guardian denies using tobacco, the patient reports quitting approximately 50 years ago. Screenin:00 Abuse screen: Denies threats or abuse. Nutritional screening: No deficits noted. aa5 Tuberculosis screening: Possible symptoms: recent bloody sputum. 12:00 [facility] ED Fall Risk Assessment (Adult) History of falling in the last 3 months, aa5 including since admission No falls in past 3 months (0 pts) Confusion or Disorientation No (0 pts) Intoxicated or Sedated No (0 pts) Impaired Gait Yes (1 pt) Mobility Assist Device Used Yes (1 pt) Altered Elimination No (0 pt) Score/Fall Risk Level 3 or more points = High Risk Oriented to surroundings, Maintained a safe environment, Educated pt \T\ family on fall prevention, incl call for assistance when getting out of bed, Assessed \T\ reinforced patient's understanding of fall precautions. Assessment: 12:00 General: Appears in no apparent distress. comfortable, Behavior is calm, cooperative. aa5 Pain: Complains of pain in left scapular area and left subscapular area Pain currently is 8 out of 10 on a pain scale. Quality of pain is described as sharp, Pain began 1 day ago. Neuro: Level of Consciousness is awake, alert, obeys commands, Oriented to person, place, time, situation. Cardiovascular: Heart tones S1 S2 present Rhythm is paced. Respiratory: Reports chronic cough and reports coughing up black blood clots since yesterday. Airway is patent Respiratory effort is even, unlabored, Respiratory pattern is regular, symmetrical, Breath sounds are clear bilaterally. GI: No signs and/or symptoms were reported involving the gastrointestinal system. : No signs and/or symptoms were reported regarding the genitourinary system. EENT: hearing aids to bilateral ears noted. . Derm: Skin is pink, warm \T\ dry. Musculoskeletal: Range of motion: intact in all extremities. 12:30 Reassessment: Patient is alert, oriented x 3, equal unlabored respirations, skin aa5 warm/dry/pink. 14:30 Reassessment: Hospitalist at bedside speaking to pt. . aa5 15:09 Reassessment: Patient is alert, oriented x 3, equal unlabored respirations, skin aa5 warm/dry/pink. 17:00 Reassessment: Patient is alert, oriented x 3, equal unlabored respirations, skin aa5 warm/dry/pink. 18:30 Reassessment: Patient is alert, oriented x 3, equal unlabored respirations, skin aa5 warm/dry/pink. Vital Signs: 11:12 BP 102 / 63; Pulse 95; Resp 20; Temp 97.1; Pulse Ox 100% on R/A; Weight 73.48 kg; hb Height 5 ft. 11 in. ; Pain 8/10; 15:05 BP 122 / 63; Pulse 75; Resp 18 S; Pulse Ox 99% on 2 lpm NC; aa5 17:00 BP 124 / 58; Pulse 77; Resp 17; Pulse Ox 100% on 2 lpm NC; Pain 0/10; aa5 11:12 Body Mass Index 22.59 (73.48 kg, 180.34 cm) hb 11:12 Pain Scale: Adult hb 17:00 Pain Scale: Adult aa5 ED Course: 10:41 Patient arrived in ED. mr 10:41 Alec Robert MD is Attending Physician. amalia 11:14 Triage completed. hb 11:15 Arm band placed on. hb 11:32 Missed attempt(s): 20 gauge in left antecubital area. Bleeding controlled, band aid bc6 applied, catheter tip intact. 11:35 First set of blood cultures drawn by me. bc6 11:37 Blood Culture Adult (2) Sent. bc6 11:37 Basic Metabolic Panel Sent. bc6 11:37 CBC with Diff Sent. bc6 11:37 LFT's Sent. bc6 11:37 Magnesium Sent. bc6 11:37 NT PRO-BNP Sent. bc6 11:37 PT-INR Sent. bc6 11:37 Troponin HS Sent. bc6 11:37 Initial lab(s) drawn, by me, sent to lab. Inserted saline lock: 20 gauge in left bc6 antecubital area, using aseptic technique. Blood collected. Flushed with 10 mL NS. 11:44 Katya Pozo, RN is Primary Nurse. aa5 11:50 Second set of blood cultures drawn by me. bc6 12:00 Patient has correct armband on for positive identification. Placed in gown. Bed in low aa5 position. Call light in reach. Side rails up X2. Adult w/ patient. Client placed on continuous cardiac and pulse oximetry monitoring. NIBP monitoring applied. philosophy professor on. Pulse ox on. NIBP on. 12:01 XRAY Chest (1 view) In Process Unspecified. EDMS 13:01 CT Chest For PE Angio In Process Unspecified. EDMS 13:07 No provider procedures requiring assistance completed. aa5 13:46 Garret Salvador is Hospitalizing Provider. amalia 18:30 Patient admitted, IV remains in place. aa5 Administered Medications: 12:00 Drug: NS 0.9% IV 500 ml 500 ml IV at 1 bolus once; to be given as a bolus over 30 aa5 minutes Volume: 500 ml; Route: IV; Rate: 1 bolus; Site: left antecubital; 12:30 Follow up: IV Status: Completed infusion; IV Intake: 500ml aa5 12:00 Drug: Famotidine IVP 20 mg IVP once; dilute with 10 mL 0.9% NaCl; give over 2 minutes aa5 Route: IVP; Site: left antecubital; 12:05 Follow up: Response: No adverse reaction aa5 12:01 Drug: Rocephin IV 1 grams IV at per protocol once; Given slow IV push per pharmacy aa5 instructions Route: IV; Rate: per protocol; Site: left antecubital; 12:10 Follow up: Response: No adverse reaction aa5 12:30 Drug: NS 0.9% IV 500 ml 500 ml IV at 125 ml/hr once Volume: 500 ml; Route: IV; Rate: aa5 125 ml/hr; Site: left antecubital; 16:30 Follow up: IV Status: Completed infusion; IV Intake: 500ml aa5 15:08 Drug: MethylPrednisoLONE IVP 125 mg IVP once Route: IVP; Site: left antecubital; aa5 15:15 Follow up: Response: No adverse reaction aa5 15:09 Drug: Piperacillin-Tazobactam IVPB 3.375 grams IVPB once over 60 mins; (mix in NS 100 aa5 mL) Route: IVPB; Infused Over: 60 mins; Site: left antecubital; 16:09 Follow up: Response: No adverse reaction; IV Status: Completed infusion aa5 15:09 Drug: Levalbuterol Inhalation 2.5 mg Inhalation once Route: Inhalation; aa5 15:09 Drug: Ipratropium Inhalation Aerosol 0.5 mg Inhalation once Route: Inhalation; aa5 Medication: 13:07 VIS not applicable for this client. aa5 Intake: 12:30 IV: 500ml; Total: 500ml. aa5 16:30 IV: 500ml; Total: 1000ml. aa5 Outcome: 13:52 Decision to Hospitalize by Provider. amalia 18:30 Admitted to Tele accompanied by tech, via wheelchair, with oxygen, with chart, aa5 18:30 Condition: stable 18:30 Instructed on the need for admit, Demonstrated understanding of instructions, 18:34 Patient left the ED. aa5 Signatures: Dispatcher [employer] Alec Barbosa MD MD cha Rivera, Mary, Reg Reg mr SánchezKatya, RN RN aa5 Hailey Doe, LAKESHA RN Anat Sears 6 Corrections: (The following items were deleted from the chart) 11:16 11:12 Chief complaint: Coughing up blood clots x 2 days, sharp left sided lung pain x 3 hb days. On 2LNC home O2. hb 15:10 15:10 MethylPrednisoLONE IVP 125 mg IVP in left antecubital aa5 aa5 20:17 17:11 Reassessment: Patient is alert, oriented x 3, equal unlabored respirations, skin aa5 warm/dry/pink. aa5 20:17 17:11 BP 124 / 58; Pulse 77bpm; Resp 17bpm; Pulse Ox 100% 3 lpm Nasal Cannula; Pain aa5 0/10, Adult; aa5 20:17 17:11 BP 124 / 58; Pulse 77bpm; Resp 17bpm; Pulse Ox 100% 2 lpm Nasal Cannula; Pain aa5 0/10, Adult; aa5
[2024-07-01] MEDS ORDERED: IPRATROPIUM BROM 0.5MG/2.5ML ONE (14:11)
[2024-07-01] MEDS ORDERED: NA CHLORIDE 0.9% 100 ML ONE (14:12)
[2024-07-01] MEDS ORDERED: METHYLPREDNISOLONE 125 MG INJ ONE (14:12)
[2024-07-01] MEDS ORDERED: LEVALBUTEROL 1.25 MG/3 ML NEB ONE (14:12)
[2024-07-01] MEDS ORDERED: PIPERACIL/TAZO 3.375 GM VIAL IV ONE (14:13)
--- NOTE | 2024-07-01 15:12 | P.HP ---
Certification for Inpatient Patient admitted to: Inpatient With expected LOS: >2 Midnights Patient will require the following post-hospital care: None Practitioner: I am a practitioner with admitting privileges, knowledge of patient current condition, hospital course, and medical plan of care. Services: Services provided to patient in accordance with Admission requirements found in Title 42 Section 412.3 of the Code of Federal Regulations <Wyatt Sandoval - Last Filed: 07/01/24 15:07> Patient History Date of Service: 07/01/24 Reason for admission: Hemoptysis, PNA History of Present Illness: This is an 84-year-old male patient with a history of COPD, atrial fibrillation, heart valve repair, alpha-1 antitrypsin deficiency that presented to the emergency room with 2 days of hemoptysis. Patient stated that he had 2 episodes yesterday and then 2-3 other episodes today without any relief. Denies fevers. Has complained of left upper back irritation with cough. Patient was worked up in the emergency room for hemoptysis and had blood work completed along with having chest x-ray and CT angiography. Chemistries showed a sodium 142, potassium 3.7, chloride of 106, bicarb of 34, BUN of 25, creatinine of 1.28, and a glucose of 106. CBC shows white cell of 10.3, hemoglobin of 12.8, hematocrit of 38.7, platelet 147. BNP was 1622 and INR was 3.53. Patient is on Coumadin for atrial fibrillation and heart valve repair in the past. 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 X-ray showed possible pneumonia and CTA did not show any pulmonary embolism but did show bronchial inflammation. Patient has been hemodynamically stable with 100% oxygen saturation on 3 L nasal cannula which she is normally on at home secondary to his COPD and alpha-1 antitrypsin deficiency. Hospitalist team consulted at that time for admission of the hemoptysis and pneumonia. 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 - Family History Brother -: Hypertension Sister -: Lung disease Mother -: Heart disease - Social History Smoking Status: Former smoker Smoking therapy provided: No Alcohol use: No CD- Drugs: No Caffeine use: Yes <Wyatt Sandoval - Last Filed: 07/01/24 15:07> Date of Service: 07/01/24 <Eric Torres - Last Filed: 07/02/24 06:13> Allergies morphine Adverse Reaction (Severe, Verified 09/18/22 04:51) AMS Home Medications: Montelukast [Singulair*] 10 mg PO BEDTIME 10/18/18 Albuterol Inhaler [Ventolin Inhaler*] 2 puff IH Q6H PRN 02/25/22 Ascorbic Acid [Vitamin C] 1,000 mg PO DAILY 02/25/22 Cholecalciferol (Vitamin D3) [Vitamin D 1000 Iu Tab*] 125 mcg PO DAILY 02/25/22 Cyanocobalamin [Vitamin B-12*] 1,000 mcg PO DAILY 02/25/22 Zinc Gluconate [Zinc] 100 mg PO DAILY 02/25/22 Fluticasone/Umeclidin/Vilanter [Trelegy Ellipta 100-62.5-25] 1 puff IH DAILY 09/18/22 Warfarin Sodium [Jantoven] 5 mg PO SEECOM 09/18/22 predniSONE [Deltasone*] 10 mg PO DAILY 03/25/24 Loteprednol Etabonate [Inveltys] 1 gtt OP BID 07/02/24 Review of Systems General: Unremarkable Eyes: Unremarkable ENT: Unremarkable Respiratory: Cough, Hemoptysis, Pleuritic Pain Cardiovascular: Unremarkable Gastrointestinal: Unremarkable Genitourinary: Unremarkable Musculoskeletal: Unremarkable Integumentary: Unremarkable Neurological: Unremarkable <Wyatt Sandoval - Last Filed: 07/01/24 15:07> Physical Examination - Vital Signs Temperature: 97.1 F Blood Pressure: 102/63 Pulse: 95 Respirations: 20 Pulse Ox (%): 100 (3 L nasal cannula) - Physical Exam General: Alert, In no apparent distress, Oriented x3, Cooperative HEENT: PERRLA, EOMI Neck: Supple Respiratory: Clear to auscultation bilaterally, Normal air movement Cardiovascular: No edema, Normal pulses, Regular rate/rhythm, Normal S1 S2, No gallops, No rubs, No murmurs Gastrointestinal: Normal bowel sounds, Soft and benign, Non-distended Musculoskeletal: No clubbing, No swelling, No contractures, No erythema, No tenderness, No warmth Integumentary: No rashes, No breakdown, No significant lesion, No tend erness/swelling, No erythema, No warmth, No cyanosis Neurological: Normal gait, Normal speech, Normal strength at 5/5 x4 extr, Normal tone, Sensation intact - Studies Laboratory Data (last 24 hrs) 07/01/24 07/01/24 07/01/24 11:35 11:35 11:35 WBC 10.30 Hgb 12.8 L Hct 38.7 L Plt Count 197 PT 37.9 H INR 3.53 Sodium 142 Potassium 3.7 BUN 25 H Creatinine 1.28 Glucose 106 Magnesium 2.4 Total Bilirubin 0.6 AST 18 ALT 26 Alkaline Phosphatase 56 <Wyatt Sandoval - Last Filed: 07/01/24 15:07> - Studies Laboratory Data (last 24 hrs) 07/01/24 07/01/24 07/01/24 11:35 11:35 11:35 WBC 10.30 Hgb 12.8 L Hct 38.7 L Plt Count 197 PT 37.9 H INR 3.53 Sodium 142 Potassium 3.7 BUN 25 H Creatinine 1.28 Glucose 106 Magnesium 2.4 Total Bilirubin 0.6 AST 18 ALT 26 Alkaline Phosphatase 56 <Eric Torres - Last Filed: 07/02/24 06:13> Assessment and Plan - Problems (Diagnosis) (1) Hemoptysis Current Visit: Yes Status: Acute (2) Pneumonia Current Visit: Yes Status: Acute Qualifiers: Pneumonia type: due to unspecified organism Laterality: bilateral Lung location: unspecified part of lung Qualified Code(s): J18.9 - Pneumonia, unspecified organism (3) A-fib Current Visit: No Status: Chronic Qualifiers: Atrial fibrillation type: longstanding persistent Qualified Code(s): I48.11 - Longstanding persistent atrial fibrillation (4) COPD (chronic obstructive pulmonary disease) Onset Date: 08/05/14 Current Visit: Yes Status: Chronic Qualifiers: COPD type: chronic bronchitis Chronic bronchitis type: simple Qualified Code(s): J41.0 - Simple chronic bronchitis - Plan 1. Pulmonary consulation for the Hemoptysis and PNA 2. Continue oxygen via NC 3. Repeat INRs 4. Continue Abx for pneumonia 5. Breathing treatments as needed 6. Hold INR for 24 hours and reassess Discharge Plan: Home Plan to discharge in: 48 Hours - Advance Directives Does patient have a Living Will: Yes Does patient have a Durable POA for Healthcare: Yes - Code Status/Comfort Care Code Status Assessed: Yes Critical Care: No Time Spent Managing Pts Care (In Minutes): 45 <Wyatt Sandoval - Last Filed: 07/01/24 15:07> Date of Service: 07/01/24 Chart has been reviewed. Events of the last 24 hours have been noted. Case discussed with SUSHIL. I performed a substantial part of the MDM during this patient's care today. I personally made or approved the documented management plan and acknowledge its risk of complications. I agree with the findings and documentation provided in the SUSHIL's notes <Eric Torres - Last Filed: 07/02/24 06:13>
[2024-07-01] MEDS ORDERED: ACETAMINOPHEN 325 MG TABLET PO PRN (19:27)
[2024-07-01] MEDS ORDERED: ONDANSETRON 4 MG/2 ML VIAL IV PRN (19:27)
[2024-07-01] MEDS: NA CHLORIDE 0.9% 1,000 ML IV SCH (21:49)
[2024-07-01] MEDS: PIPER TAZO 3.375 GM in NA CHLORIDE 0.9% 100 ML IV SCH (21:49)
[2024-07-01 23:57] VITALS: BMI 22.6
[2024-07-02] MEDS: ALBUTEROL 2.5 MG/3 ML NEB SOL NEB SCH (00:26)
[2024-07-02] MEDS: IPRATROPIUM BROM 0.5MG/2.5ML NEB SCH (00:26)
[2024-07-02 02:42] LABS: Specific Gravity > 1.030 (1.005-1.030); Urine Bilirubin NEGATIVE (Negative); Urine Blood Negative (Negative); Urine Clarity Clear (Clear); Urine Color Light-Yellow (Yellow); Urine Glucose 4+ (Over) (Negative); Urine Ketones TRACE (Negative); Urine Microscopic Reflex YN NO UMIC; Urine Nitrite NEGATIVE (Negative); Urine Protein NEGATIVE (Negative); Urine Urobilinogen Normal (Normal)
[2024-07-02 05:26] LABS: PT Prothrombin Time 40.6 SECONDS (10-13.0); Protime INR 3.79
[2024-07-02 05:32] LABS: Absolute Lymphocytes (CBC) 0.6 K/uL (0.7-4.9); Absolute Monocytes 0.2 K/uL (0.1-1.3); Absolute Neutrophil 6.6 K/uL (1.8-8.0); Basophils % 0.1 % (0-1.3); Hematocrit 32.6 % (39.6-49.0); Lymphocytes % 7.5 % (15.3-44.8); MCH 29.5 pg (27.0-35.0); MCHC 33.9 g/dL (32.0-36.0); MCV 87.1 fL (80-100); MPV 8.9 fL (7.6-11.3); Neutrophils % 89.4 % (41.7-73.7); Nucleated Red Blood Cells % 0.1 % (0-0); Platelets 150 thou/uL (152-406); RBC Red Blood Cell Count 3.74 M/uL (4.33-5.43); Red Cell Distribution Width 14.6 % (12.1-15.2)
[2024-07-02 05:36] LABS: Anion Gap 8.2 mEq/L (5.0-15.0); Potassium 4.2 mEq/L (3.5-5.1)
--- NOTE | 2024-07-02 08:23 | P.CNS ---
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 [place] Allergies morphine Adverse Reaction (Severe, Verified 09/18/22 04:51) AMS Home Medications: Montelukast [Singulair*] 10 mg PO BEDTIME 10/18/18 Albuterol Inhaler [Ventolin Inhaler*] 2 puff IH Q6H PRN 02/25/22 Ascorbic Acid [Vitamin C] 1,000 mg PO DAILY 02/25/22 Cholecalciferol (Vitamin D3) [Vitamin D 1000 Iu Tab*] 125 mcg PO DAILY 02/25/22 Cyanocobalamin [Vitamin B-12*] 1,000 mcg PO DAILY 02/25/22 Zinc Gluconate [Zinc] 100 mg PO DAILY 02/25/22 Fluticasone/Umeclidin/Vilanter [Trelegy Ellipta 100-62.5-25] 1 puff IH DAILY 09/18/22 Warfarin Sodium [Jantoven] 5 mg PO SEECOM 09/18/22 predniSONE [Deltasone*] 10 mg PO DAILY 03/25/24 Loteprednol Etabonate [Inveltys] 1 gtt OP BID 07/02/24 - Past Medical/Surgical History Diabetic: No -: Stroke 2018 -: COPD-emphysema, 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 - Family History Brother Medical History: Hypertension Sister Medical History: Lung disease Mother Medical History: Heart disease - Social History Smoking Status: Former smoker Alcohol use: No CD- Drugs: No Caffeine use: No Place of Residence: Home Review of Systems 10-point ROS is otherwise unremarkable Respiratory: Cough, Shortness of Breath, Hemoptysis Physical Examination Temp Pulse Resp BP Pulse Ox 97.6 F 98 H 18 108/58 L 95 07/02/24 04:00 07/02/24 04:00 07/02/24 04:00 07/02/24 04:00 07/02/24 04:00 General: Alert, Oriented x3 Respiratory: Clear to auscultation bilaterally, Diminished Cardiovascular: No edema, Regular rate/rhythm, Normal S1 S2 Laboratory Data (last 24 hrs) 07/01/24 07/01/24 07/01/24 11:35 11:35 11:35 WBC 10.30 Hgb 12.8 L Hct 38.7 L Plt Count 197 PT 37.9 H INR 3.53 Sodium 142 Potassium 3.7 BUN 25 H Creatinine 1.28 Glucose 106 Magnesium 2.4 Total Bilirubin 0.6 AST 18 ALT 26 Alkaline Phosphatase 56 - Problems (1) Pneumonia Current Visit: Yes Status: Acute Plan: Patient is 84 years of age admitted with 2-day history of hemoptysis likely from an infection may be a pneumonia in the left lower lobe has got very severe emphysematous changes patient to p.o. Augmentin prednisone see IV fluids very high risk for biopsy possible discharge follow-up with his furnace operator oil or gas labs reviewed white count normal mild anemia discharged home on Augmentin and doxycycline continue with prednisone 10 mg twice a day and Trelegy Qualifiers: Pneumonia type: due to unspecified organism Laterality: left Lung location: unspecified part of lung Qualified Code(s): J18.9 - Pneumonia, unspecified organism
[2024-07-02 08:34] LABS: Band Neutrophils 2 % (0-1); Blood Morphology Comment NOT SEEN (NOT SEEN); Differential Total Cells Count 100; Lymphocytes 9 % (15-42); Monocytes 2 % (0-10); Platelet Estimate DECR; Segmented Neutrophils 87 % (40-80)
[2024-07-02] MEDS: predniSONE 20 MG TAB PO SCH (08:51)
[2024-07-02] MEDS: AMOX/K CLAV 875 MG TAB PO SCH (08:51)
[2024-07-02] MEDS: DOXYCYCLINE 100 MG CAP PO SCH (08:51)
--- NOTE | 2024-07-02 11:00 | EKG ---
Test Date: 2024-07-01 Test Time: 11:44:04 Commissioned Security Officer: NANCY MEASUREMENT RESULTS: Intervals: Rate: 67 AR: 186 QRSD: 176 QT: 450 QTc: 475 [place]: P: 262 AR: 186 QRS: -83 T: 80 INTERPRETIVE STATEMENTS: AV dual-paced rhythm Abnormal ECG Compared to ECG 03/24/2024 22:02:09 Atrial fibrillation no longer present Electronically Signed On 07-02-24 10:57:06 CDT by Lan Gu
--- NOTE | 2024-07-02 18:17 | P.PN ---
Date of Service: 07/02/24 Subjective Reports feeling better than yesterday On afternoon rounds he started to feel more short of breath ROS 10 point ROS as noted above, otherwise negative Physical Exam General: Alert and Oriented x3, Cooperative, NAD HEENT: PERRLA, EOMI Neck: Supple Respiratory: Clear to auscultation bilaterally, on 3 LNC Cardiovascular: Normal pulses, RRR, Normal S1 S2 Gastrointestinal: Normal bowel sounds, Soft and benign on palpation, Non- distended Musculoskeletal: No clubbing Integumentary: No rashes Neurological: Normal gait, Normal speech Vitals Reviewed Problem list Hemoptysis Pneumonia COPD A fib Assessment and Plan Hemoptysis Pneumonia Severe emphysematous COPD -Pulmonary consult -Augmentin -Prednisone -Trelegy -Oxygen protocol A fib -Continue home medication -Continuous telemetry DVT ppx SCD Full code LOS 2 days <Kristie Millan - Last Filed: 07/02/24 18:03> I have personally seen and evaluated the patient. I have reviewed the history, physical exam findings, and assessment provided by Gee Millan NP. I agree with the plan of care as documented <Delroy Pro - Last Filed: 07/02/24 23:48>
[2024-07-02] MEDS: MAGNESIUM SULFATE 1 gm IVPB 1 GM/100 ML BAG IV ONE (18:33)
[2024-07-03 06:02] LABS: Absolute Lymphocytes (CBC) 0.4 K/uL (0.7-4.9); Absolute Monocytes 0.6 K/uL (0.1-1.3); Absolute Neutrophil 10.4 K/uL (1.8-8.0); Basophils % 0.3 % (0-1.3); Hematocrit 35.6 % (39.6-49.0); Hemoglobin 11.7 g/dL (13.6-17.9); Lymphocytes % 3.4 % (15.3-44.8); MCH 29.3 pg (27.0-35.0); MCHC 32.8 g/dL (32.0-36.0); MCV 89.3 fL (80-100); MPV 8.3 fL (7.6-11.3); Monocytes % 5.5 % (3.3-12.3); Neutrophils % 90.8 % (41.7-73.7); Platelets 186 thou/uL (152-406); RBC Red Blood Cell Count 3.99 M/uL (4.33-5.43)
[2024-07-03 06:07] LABS: PT Prothrombin Time 36.3 SECONDS (10-13.0); Protime INR 3.37
[2024-07-03 06:16] LABS: Anion Gap 7.6 mEq/L (5.0-15.0); Magnesium 2.4 mg/dL (1.6-2.4); Phosphorus 2.5 mg/dL (2.5-4.9); Potassium 4.6 mEq/L (3.5-5.1)
[2024-07-03 09:12] VITALS: O2SAT 97
[2024-07-03 09:16] VITALS: BP 160/73; TEMP 98
--- NOTE | 2024-07-03 12:24 | P.PN ---
Subjective Date of Service: 07/03/24 Chief Complaint: Hemoptysis, PNA Subjective: Improving (Patient is improving hemoptysis declined) Review of Systems General: Weakness Respiratory: Shortness of Breath, Hemoptysis Physical Examination - Vital Signs Temperature: 98.0 F Blood Pressure: 160/73 Pulse: 98 Respirations: 22 Pulse Ox (%): 97 - Physical Exam General: Alert, Oriented x3 Respiratory: Clear to auscultation bilaterally, Diminished Cardiovascular: Regular rate/rhythm Assessment And Plan - Current Problems (Diagnosis) (1) Pneumonia Current Visit: Yes Status: Acute Plan: Admitted with hemoptysis and possible pneumonia he is under he has underlying severe COPD disease has been declining continue and discharge with on home antibiotics use a dose of warfarin to 2.5 mg a day with me next week check his PT/INR and adjust doses his PT/INR is probably elevated from the use of antibiotic hemoglobin remained stable Qualifiers: Pneumonia type: due to unspecified organism Laterality: left Lung location: unspecified part of lung Qualified Code(s): J18.9 - Pneumonia, unspecified organism
--- NOTE | 2024-07-03 13:01 | P.DS ---
Admission Date: 07/01/24 Discharge Date: 07/03/24 Reason for Admission: Hemoptysis, PNA Brief History of Present Illness: Diagnosis Hemoptysis Pneumonia Severe emphysematous COPD A fib HPI 07/01/2024 This is an 84-year-old male patient with a history of COPD, atrial fibrillation, heart valve repair, alpha-1 antitrypsin deficiency that presented to the emergency room with 2 days of hemoptysis. Patient stated that he had 2 episodes yesterday and then 2-3 other episodes today without any relief. Denies fevers. Has complained of left upper back irritation with cough. Patient was worked up in the emergency room for hemoptysis and had blood work completed along with having chest x-ray and CT angiography. Chemistries showed a sodium 142, potassium 3.7, chloride of 106, bicarb of 34, BUN of 25, creatinine of 1.28, and a glucose of 106. CBC shows white cell of 10.3, hemoglobin of 12.8, hematocrit of 38.7, platelet 147. BNP was 1622 and INR was 3.53. Patient is on Coumadin for atrial fibrillation and heart valve repair in the past. 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 X-ray showed possible pneumonia and CTA did not show any pulmonary embolism but did show bronchial inflammation. Patient has been hemodynamically stable with 100% oxygen saturation on 3 L nasal cannula which she is normally on at home secondary to his COPD and alpha-1 antitrypsin deficiency. Hospitalist team consulted at that time for admission of the hemoptysis and pneumonia. Hospital Course: Patient was admitted and treated for the following diagnosis Hemoptysis Pneumonia Severe emphysematous COPD -Pulmonary consulted -tolerated Augmentin, Prednisone, Trelegy -supplemental Oxygen provided, on home O2 3LNC A fib -Continue home medication -Continuous telemetry -Monitored INR, INR 3.3, will decreased coumadin at discharge 07/03/2024, patient was seen on morning rounds and deemed hemodynamically stable, Dr. Valle evaluated and cleared for discharge. INR of 3.3, will resume lower dose Coumadin 2.5 mg daily. Coumadin, Augmentin, and prednisone prescribed. General: AAOx3, NAD HEENT: mucus membranes moist, nare normalle Respiratory: symmetrical chest expansion, no accessory muscles used, clear BBS, on 3 L nasal cannula Cardiac: RRR, no murmurs or gallops noted Extremities: No edema present, peripheral pulses 2+ Abdominal: soft on palpation, NT/ND Skin: warm pink and dry Neurological: clear speech, appropriate <Kirstie Millan - Last Filed: 07/03/24 21:13> Admission Date: 07/01/24 Discharge Date: 07/03/24 Brief History of Present Illness: I have personally seen and evaluated the patient. I have reviewed and agree with the history, physical exam findings, assessment, and plan of Gee Millan NP. <Delroy Pro - Last Filed: 07/03/24 22:34> Disposition: ROUTINE DISCHARGE Discharge Condition: GOOD Vital Signs/Physical Exam: Temp Pulse Resp BP Pulse Ox 98.0 F 98 H 22 H 160/73 H 97 07/03/24 12:24 07/03/24 12:24 07/03/24 12:24 07/03/24 12:24 07/03/24 12:24 Laboratory Data at Discharge: WBC 11.40 thou/uL (4.3-10.9) H 07/03/24 05:45 Hgb 11.7 g/dL (13.6-17.9) L 07/03/24 05:45 Hct 35.6 % (39.6-49.0) L 07/03/24 05:45 Plt Count 186 thou/uL (152-406) 07/03/24 05:45 PT 36.3 SECONDS (10-13.0) H 07/03/24 05:45 INR 3.37 07/03/24 05:45 Sodium 140 mEq/L (136-145) 07/03/24 05:45 Potassium 4.6 mEq/L (3.5-5.1) 07/03/24 05:45 BUN 19 mg/dL (7-18) H 07/03/24 05:45 Creatinine 1.24 mg/dL (0.70-1.30) 07/03/24 05:45 Glucose 186 mg/dL (74-106) H 07/03/24 05:45 Phosphorus 2.5 mg/dL (2.5-4.9) 07/03/24 05:45 Magnesium 2.4 mg/dL (1.6-2.4) 07/03/24 05:45 Total Bilirubin 0.6 mg/dL (0.2-1.0) 07/01/24 11:35 AST 18 U/L (15-37) 07/01/24 11:35 ALT 26 U/L (16-61) 07/01/24 11:35 Alkaline Phosphatase 56 U/L (45-117) 07/01/24 11:35 <Kirstie Millan - Last Filed: 07/03/24 21:13> Vital Signs/Physical Exam: Temp Pulse Resp BP Pulse Ox 98.0 F 98 H 22 H 160/73 H 97 07/03/24 12:24 07/03/24 12:24 07/03/24 12:24 07/03/24 12:24 07/03/24 12:24 Laboratory Data at Discharge: WBC 11.40 thou/uL (4.3-10.9) H 07/03/24 05:45 Hgb 11.7 g/dL (13.6-17.9) L 07/03/24 05:45 Hct 35.6 % (39.6-49.0) L 07/03/24 05:45 Plt Count 186 thou/uL (152-406) 07/03/24 05:45 PT 36.3 SECONDS (10-13.0) H 07/03/24 05:45 INR 3.37 07/03/24 05:45 Sodium 140 mEq/L (136-145) 07/03/24 05:45 Potassium 4.6 mEq/L (3.5-5.1) 07/03/24 05:45 BUN 19 mg/dL (7-18) H 07/03/24 05:45 Creatinine 1.24 mg/dL (0.70-1.30) 07/03/24 05:45 Glucose 186 mg/dL (74-106) H 07/03/24 05:45 Phosphorus 2.5 mg/dL (2.5-4.9) 07/03/24 05:45 Magnesium 2.4 mg/dL (1.6-2.4) 07/03/24 05:45 Total Bilirubin 0.6 mg/dL (0.2-1.0) 07/01/24 11:35 AST 18 U/L (15-37) 07/01/24 11:35 ALT 26 U/L (16-61) 07/01/24 11:35 Alkaline Phosphatase 56 U/L (45-117) 07/01/24 11:35 <Delroy Pro - Last Filed: 07/03/24 22:34> <Kirstie Millan - Last Filed: 07/03/24 21:13> <Delroy Pro - Last Filed: 07/03/24 22:34> Home Medications: Montelukast [Singulair*] 10 mg PO BEDTIME 10/18/18 Albuterol Inhaler [Ventolin Inhaler*] 2 puff IH Q6H PRN 02/25/22 Ascorbic Acid [Vitamin C] 1,000 mg PO DAILY 02/25/22 Cholecalciferol (Vitamin D3) [Vitamin D 1000 Iu Tab*] 125 mcg PO DAILY 02/25/22 Cyanocobalamin [Vitamin B-12*] 1,000 mcg PO DAILY 02/25/22 Zinc Gluconate [Zinc] 100 mg PO DAILY 02/25/22 Fluticasone/Umeclidin/Vilanter [Trelegy Ellipta 100-62.5-25] 1 puff IH DAILY 09/18/22 predniSONE [Deltasone*] 10 mg PO DAILY 03/25/24 Loteprednol Etabonate [Inveltys] 1 gtt OP BID 07/02/24 Amox/Clavulanate [Augmentin 875-125 Tab*] 875 mg PO BIDWM 10 Days #20 tab 07/03/24 Warfarin Sodium [Jantoven] 2.5 mg PO BEDTIME 30 Days #15 tab 07/03/24 predniSONE [Prednisone*] 20 mg PO BID 5 Days #10 tab 07/03/24 New Medications: Amox/Clavulanate [Augmentin 875-125 Tab*] 875 mg PO BIDWM 10 Days #20 tab Warfarin Sodium [Jantoven] 2.5 mg PO BEDTIME 30 Days #15 tab predniSONE [Prednisone*] 20 mg PO BID 5 Days #10 tab Physician Discharge Instructions: 1. Please call and schedule a follow-up appointment with your PCP in 3-5 days - Please follow-up with your PCP for medication refills/adjustments -INR 3.3, change Coumadin 2.5 daily 2. Please call and schedule a follow-up appointment with Dr. Valle in 1 week 3. Continue heart healthy diet 4. No activity restrictions 5. Return to the ED if symptoms worsen New medications Prednisone 20 mg twice daily x 5 days, then resume prednisone 10 mg dosing Augmentin 875 p.o. twice daily x 10 days Coumadin 2.5 mg daily until follow-up with Dr. Gonzalez or PCP changes dosing Followup: Brandon Valle MD [ACTIVE - CAN ADMIT] - 1-2 Weeks Shandra Mercado MD [Primary Care Provider] - 1 Week
--- NOTE | 2024-07-03 14:13 | ECHO ---
HEIGHT: 5 ft 11 in WEIGHT: 162 lb 0 oz DATE OF STUDY: 07/03/[address]: Delroy Pro MD 2-DIMENSIONAL: YES M.MODE: YES DOPPLER: YES COLOR FLOW: YES TDS: YES PORTABLE: YES DEFINITY: NO BUBBLE STUDY: NO DIAGNOSIS: SHORTNESS OF BREATH CARDIAC HISTORY: CATHERIZATION:YES SURGERY: YES PROSTHETIC VALVE: NO PACEMAKER: YES MEASUREMENTS (cm) DIASTOLIC (NORMALS) SYSTOLIC (NORMALS) IVSd 1.0 (0.6-1.2) LA Diam (1.9-4.0) LVEF 60-65% LVIDd 2.8 (3.5-5.7) LVIDs 1.9 (2.0-3.5) %FS 32% LVPWd 1.1 (0.6-1.2) Ao Diam (2.0-3.7) 2 DIMENSIONAL ASSESSMENT: RIGHT ATRIUM: NORMAL LEFT ATRIUM: MILDLY DILATED RIGHT VENTRICLE: NORMAL LEFT VENTRICLE: NORMAL TRICUSPID VALVE: MILD TRICUSPID REGURGITATION MITRAL VALVE: NORMAL PULMONIC VALVE: NORMAL AORTIC VALVE: NORMAL PERICARDIAL EFFUSION: NONE AORTIC ROOT: NORMAL LEFT VENTRICULAR WALL MOTION: NORMAL. DOPPLER/COLOR FLOW: NORMAL. COMMENTS: 1. NORMAL LEFT VENTRICULAR SYSTOLIC FUNCTION. LEFT VENTRICULAR EJECTION FRACTION 60-65%. NORMAL WALL MOTION. 2. ELEVATED FILLING PRESSURE. RIGHT ATRIAL PRESSURE 15-20 mmHg. 3. MODERATE PULMONARY HYPERTENSION. RIGHT VENTRICULAR SYSTOLIC PRESSURE 50-55 mmHg. TECHNOLOGIST: ALDEN IBARRA
== END 2024-07-03 14:29 | disposition home or self-care (01) | DRG 194 ==
LOC: ER 10:38 → ERHOLD 14:58 → 2ND 17:42
PROVIDERS: ADMIT Hospitalist; ATTEND Family Medicine
DX: J15.9 Unspecified bacterial pneumonia (principal); I48.11 Longstanding persistent atrial fibrillation; J44.0 Chronic obstructive pulmonary disease with (acute) lower respiratory infection; R04.2 Hemoptysis; I10 Essential (primary) hypertension; I25.10 Atherosclerotic heart disease of native coronary artery without angina pectoris; T45.7X5A Adverse effect of anticoagulant antagonists, vitamin K and other coagulants, initial encounter; Z96.1 Presence of intraocular lens; Z95.0 Presence of cardiac pacemaker; Z88.5 Allergy status to narcotic agent; Z95.1 Presence of aortocoronary bypass graft; Z79.01 Long term (current) use of anticoagulants; Z90.49 Acquired absence of other specified parts of digestive tract; Z86.73 Personal history of transient ischemic attack (TIA), and cerebral infarction without residual deficits; Z79.52 Long term (current) use of systemic steroids; Z79.899 Other long term (current) drug therapy; Z87.891 Personal history of nicotine dependence; Z85.828 Personal history of other malignant neoplasm of skin
CPT/HCPCS: 36415; 71045; 71275; 80048; 80076; 81003; 83735; 83880; 84100; 84484; 85025; 85610; 87040; 93005; 93306; 94760; 96361; 96365; 96375; 99285; J0696; J2543; J2919; J3475; J7030; J7512; J7613; J7614; J7644; Q9967

== ENCOUNTER 2024-07-20 08:27 | Inpatient (IN) | payer OTHER ==
[2024-07-20 09:33] LABS: Absolute Basophils 0.1 K/uL (0-0.5); Absolute Eosinophils 0.2 K/uL (0-0.5); Absolute Lymphocytes (CBC) 1.8 K/uL (0.7-4.9); Absolute Neutrophil 7.7 K/uL (1.8-8.0); Basophils % 0.7 % (0-1.3); Eosinophils % 1.6 % (0-4.4); Hematocrit 39.2 % (39.6-49.0); Hemoglobin 12.9 g/dL (13.6-17.9); Lymphocytes % 16.5 % (15.3-44.8); MCH 29.5 pg (27.0-35.0); MCHC 32.9 g/dL (32.0-36.0); MCV 89.7 fL (80-100); MPV 8.3 fL (7.6-11.3); Monocytes % 9.5 % (3.3-12.3); Neutrophils % 71.7 % (41.7-73.7); Nucleated Red Blood Cells % 0.1 % (0-0); Platelets 201 thou/uL (152-406); RBC Red Blood Cell Count 4.37 M/uL (4.33-5.43); Red Cell Distribution Width 15.1 % (12.1-15.2)
[2024-07-20 09:35] LABS: PT Prothrombin Time 59.8 SECONDS (10-13.0); Protime INR 5.7
[2024-07-20 09:45] LABS: Albumin 3.1 g/dL (3.4-5.0); Anion Gap 9.4 mEq/L (5.0-15.0); Bilirubin Direct 0.2 mg/dL (0-0.2); Bilirubin Indirect, Calculated 0.4 mg/dL (0.2-0.8); Bilirubin Total 0.6 mg/dL (0.2-1.0); Globulin 3.1 g/dL (2.3-3.5); Potassium 4.4 mEq/L (3.5-5.1); Protein, Total 6.2 g/dL (6.4-8.2)
--- NOTE | 2024-07-20 10:53 | RAD REPORT ---
EXAM: CT Chest For Pe Angio TECHNIQUE: CT angiogram of the chest was performed following intravenous contrast administration, inc luding sagittal and coronal as well as maximum intensity projection reformats. One or more of the following dose reduction techniques were used: Automated exposure control, adjustment of the mA and k V according to patient size, and iterative reconstruction. Unless otherwise specified, incidental findings do not require dedicated imaging follow-up. INDICATION: HEMOPTYSIS COMPARISON: 12/01/2024. FINDINGS: LINES/TUBES: None. PULMONARY ARTERIES: Main pulmonary arteries are normal in caliber. No filling defects within the pul monary arteries to suggest pulmonary embolus. LUNGS AND AIRWAYS: Progressive wall thickening and at least partial opacification of the bronchial br anches to the basal left lower lobe. Progressive interstitial thickening with opacification and air-fluid levels within left lower lobe bullae. Advanced changes of COPD throughout, with bullous amalia nges along the right base and left more than right upper segment lower lobes as well. PLEURA: No effusion or pneumothorax. HEART AND MEDIASTINUM: The visualized thyroid gland is normal. Right epicardial 5.1 x 3.4 cm fat-cont aining mass is stable with marginal foci of calcification, could reflect sequelae of fat necrosis versus a hamartoma. Sequelae of median sternotomy and mitral valve replacement again seen. Left chest wall pacer in place. No mediastinal, hilar, or axillary lymphadenopathy. Heart is unremarkable. No pericardial effusion. SOFT TISSUES AND BONES: No acute osseous abnormality. No significant soft tissue finding. UPPER ABDOMEN: Unremarkable. IMPRESSION: No evidence of acute central pulmonary emboli. Progressive wall thickening along bronchial branches to the basal left lower lobe. Progressive inters titial thickening with opacification and air-fluid levels within the left lower lobe basal bullae. The findings could relate to progressive alveolar hemorrhage or bronchopneumonia. Other stable findings as above.
--- NOTE | 2024-07-20 11:33 | RAD REPORT ---
EXAMINATION: CT Abdomen Pelvis W Contrast CLINICAL INDICATION: Male, 84 years old. assess for hernia LLQ pain;Abd pain TECHNIQUE: CT abdomen and pelvis was performed, after the administration of IV contrast, as per [facility] protocol. Axial, sagittal and coronal reconstructions were obtained. One or more of the following dose reduction techniques were used: Automated exposure control, adjustment of the mA and k V according to patient size, and iterative reconstruction. Unless otherwise specified, incidental findings do not require dedicated imaging follow-up. COMPARISON: 03/21/2022, 09/18/2022 FINDINGS: LOWER CHEST: Separately evaluated on dedicated CTA chest of the same day. LIVER: Normal in size. Multinodular inferior contour, may reflect cirrhosis. No focal lesion. BILIARY SYSTEM: Status post cholecystectomy. SPLEEN: Normal size. No focal lesion. PANCREAS: No mass, ductal dilation, or ray-pancreatic fluid. ADRENALS: Normal; no mass. KIDNEYS: Normal size and contour. No hydronephrosis. URINARY BLADDER: Unremarkable. GASTROINTESTINAL TRACT: Small sliding hiatal hernia. No evidence of free air, significant intra-abdom inal free fluid, bowel obstruction or abscess. Distal colonic diverticulosis without evidence of acute diverticulitis. APPENDIX: Normal appendix. LYMPH NODES: No lymphadenopathy. MUSCULOSKELETAL: No acute or suspicious osseous abnormality. ADDITIONAL FINDINGS: Expansile swelling of the left rectus muscle with bulky lower component measurin g 5.9 x 4.0 cm, and collectively measuring 11.2 cm in greatest craniocaudal dimension. Internally, this shows heterogeneous hyperdensity with some vascular elements along the deep aspect. Stranding ex tends along the left inguinal canal. IMPRESSION: Bulky swelling of the left rectus muscle most prominent inferiorly, measuring up to 5.9 x 4.0 x 11.2 cm, with some heterogeneous hyperdensity, suggesting a hematoma. Linear hyperdense elements posteriorly, could represent prominent vascularity or mild extravasation.
[2024-07-20] MEDS ORDERED: NA CHLORIDE 0.9% 100 ML ONE (11:44)
[2024-07-20] MEDS ORDERED: CEFEPIME 1 GM/VIAL ONE (11:45)
--- NOTE | 2024-07-20 11:56 | EDPHYS ---
Physician Documentation [facility] Name: Bharat Bauman Age: 84 yrs Sex: Male : 1940 Arrival Date: 07/20/2024 Time: 08:27 Bed 6 Private MD: ED Physician Caitlin Alexander HPI: 07/20 09:19 This 84 yrs old Male presents to ER via Wheelchair with complaints of Productive Cough sp3 - COUGHING UP BLOOD, HERNIA. 09:19 84-year-old male with history of atrial fibrillation on warfarin, COPD, CVA, sp3 hypertension, pacemaker, on home O2 now presents to the ED with chief complaint cough and hemoptysis which then later resulted in a "pop" in his left lower quadrant of his abdomen and feels he may also have a hernia. Last summer he had hemoptysis like this he was diagnosed with pneumonia. He has no history of PE or DVT. Last INR was 2.1. He sees Dr. Parikh as his PCP. He denies current or recent headache, neck pain, chest pain, shortness of breath, vomiting, diarrhea, syncope, rash, bleeding other than to hemoptysis, or any other signs or symptoms on ROS at this time.. Historical: - Allergies: 09:00 Morphine; hb - PMHx: 09:00 Atrial Fib; COPD; CVA; Hypertension; Pacemaker; hb 09:00 3LNC Home O2; hb - PSHx: 09:00 back surgery; cataracts; Cholecystectomy; inguinal hernia; Skin cancer removal; hb umbilical hernia repair x 2; mitral valve repair; - Immunization history:: Adult Immunizations up to date. - Infectious Disease History:: Denies. - Social history:: Smoking status: Patient denies any tobacco usage or history of. ROS: 09:20 Constitutional: Negative for fever, chills, and weight loss, Eyes: Negative for injury, sp3 pain, redness, and discharge, ENT: Negative for injury, pain, and discharge, Neck: Negative for injury, pain, and swelling, Back: Negative for injury and pain, MS/Extremity: Negative for injury and deformity, Skin: Negative for injury, rash, and discoloration, Neuro: Negative for headache, weakness, numbness, tingling, and seizure, Psych: Negative for depression, anxiety, suicide ideation, homicidal ideation, and hallucinations, Allergy/Immunology: Negative for hives, rash, and allergies, Endocrine: Negative for neck swelling, polydipsia, polyuria, polyphagia, and marked weight changes, Hematologic/Lymphatic: Negative for swollen nodes, abnormal bleeding, and unusual bruising, 09:20 All other systems are negative, Exam: 09:20 Constitutional: This is a well developed, well nourished patient who is awake, alert, sp3 and in no acute distress. Head/Face: Normocephalic, atraumatic. ENT: Nares patent. No nasal discharge, no septal abnormalities noted. External auditory canals are clear. Oropharynx with no redness, swelling, or masses, exudates, or evidence of obstruction, uvula midline. Mucous membranes moist. Neck: Trachea midline, no thyromegaly or masses palpated, and no cervical lymphadenopathy. Supple, full range of motion without nuchal rigidity, or vertebral point tenderness. No Meningismus. Chest/axilla: Normal chest wall appearance and motion. Nontender with no deformity. No lesions are appreciated. Cardiovascular: Regular rate and rhythm with a normal S1 and S2. No gallops, murmurs, or rubs. Normal PMI, no JVD. No pulse deficits. Respiratory: Lungs have equal breath sounds bilaterally, clear to auscultation and percussion. No rales, rhonchi or wheezes noted. No increased work of breathing, no retractions or nasal flaring. Back: No spinal tenderness. No costovertebral tenderness. Full range of motion. Skin: Warm, dry with normal turgor. Normal color with no rashes, no lesions, and no evidence of cellulitis. MS/ Extremity: Pulses equal, no cyanosis. Neurovascular intact. Full, normal range of motion. Neuro: Awake and alert, GCS 15, oriented to person, place, time, and situation. Cranial nerves II-XII grossly intact. Motor strength 5/5 in all extremities. Sensory grossly intact. Cerebellar exam normal. Normal gait. Psych: Awake, alert, with orientation to person, place and time. Behavior, mood, and affect are within normal limits. 09:20 Abdomen/GI: Left lower quadrant abdominal pain to palpation without peritoneal signs, rebound or guarding. No active hemoptysis currently in the ED. Patient is resting comfortably in no acute distress with normal vital signs. Heart rate in the 90s, respiratory rate at 20 and pulse oxygenation 93% on 2 L., 09:24 ECG was reviewed by the Attending Physician. EKG demonstrates atrial fibrillation with sp3 ventricular paced demand rhythm with adequate capture on demand spikes in [place] spikes with nonspecific ST/T changes without evidence of acute ischemia. Vital Signs: 08:57 BP 119 / 77; Pulse 100; Resp 24; Temp 98.5; Pulse Ox 93% on 3 lpm NC; Pain 10/10; hb 11:59 BP 118 / 72; Pulse 79; Resp 16; Pulse Ox 100% ; bp 13:18 BP 99 / 62; Pulse 98; Resp 16; Pulse Ox 99% ; bp 19:18 BP 113 / 70; Pulse 95; Resp 16; Pulse Ox 100% on NC; dd2 08:57 Pain Scale: Adult hb MDM: 08:50 Medical Screening Exam initiated sp3 09:21 Data reviewed: vital signs, nurses notes, old medical records, lab test result(s), EKG, sp3 radiologic studies. ED course: 84-year-old male with PMH above now with hemoptysis, cough and also new left lower quadrant abdominal pain. Both of these should be evaluated differently. His respiratory symptoms include differential diagnoses of pneumonia, bronchitis, PE, coagulopathy. His abdominal differential includes muscle strain, hernia, other colonic pathology, among others. Workup will include general labs, CT scan of the chest and a PE protocol, CT scan of the abdomen pelvis with IV contrast assessing for hernia, and general supportive care. INR for today is pending. Disposition pending workup patient course.. 11:54 ED course: Patient has bronchoalveolar pneumonia. We will start cefepime. Also has an sp3 incidental finding the left lower quadrant abdominal pain is due to large abdominal wall hematoma. Will not reverse INR now given his history. Further per medicine if indicated or if patient deteriorates. Vital signs are currently normal and stable. Patient is resting comfortably. I discussed case with surgery as consultants. Patient will be admitted to internal medicine.. 07/20 09:00 Order name: Basic Metabolic Panel; Complete Time: :47 sp3 07/20 09:00 Order name: CBC with Diff; Complete Time: : sp3 07/20 09:00 Order name: LFT's; Complete Time: sp3 07/20 09:00 Order name: Magnesium; Complete Time: 09:47 sp3 07/20 09:00 Order name: NT PRO-BNP; Complete Time: 09:47 sp3 07/20 09:00 Order name: PT-INR; Complete Time: 09:47 sp3 07/20 09:00 Order name: Troponin HS; Complete Time: 09:47 sp3 07/20 09:00 Order name: Lipase; Complete Time: 09:47 sp3 07/20 15:49 Order name: CBC with Automated Diff EDMS 07/20 15:49 Order name: CBC with Automated Diff EDMS 07/20 15:49 Order name: CBC with Automated Diff EDMS 07/20 15:49 Order name: CBC with Automated Diff EDMS 07/20 15:49 Order name: CBC with Automated Diff EDMS 07/20 15:49 Order name: CBC with Automated Diff EDMS 07/20 15:49 Order name: Comprehensive Metabolic Panel EDMS 07/20 15:49 Order name: Comprehensive Metabolic Panel EDMS 07/20 15:49 Order name: Comprehensive Metabolic Panel EDMS 07/20 15:49 Order name: Comprehensive Metabolic Panel EDMS 07/20 15:49 Order name: Comprehensive Metabolic Panel EDMS 07/20 15:49 Order name: Comprehensive Metabolic Panel EDMS 07/20 15:49 Order name: Magnesium EDMS 07/20 15:49 Order name: Magnesium EDMS 07/20 15:49 Order name: Magnesium EDMS 07/20 15:49 Order name: Magnesium EDMS 07/20 15:49 Order name: Magnesium EDMS 07/20 15:49 Order name: Magnesium EDMS 07/20 15:49 Order name: Protime (+INR) EDMS 07/20 15:49 Order name: Protime (+INR) EDMS 07/20 15:49 Order name: Protime (+INR) EDMS 07/20 15:49 Order name: Protime (+INR) EDMS 07/20 15:50 Order name: Protime (+INR) EDMS 07/20 15:50 Order name: Protime (+INR) EDMS 07/20 19:57 Order name: CBC without Diff EDMS 07/20 09:00 Order name: CT Chest For PE Angio; Complete Time: 11:33 sp3 07/20 09:00 Order name: CT Abd/Pelvis - IV Contrast Only; Complete Time: 11:34 sp3 07/20 15:47 Order name: CONS Physician Consult EDMS 07/20 09:00 Order name: Cardiac monitoring; Complete Time: 09:12 sp3 07/20 09:00 Order name: EKG - Nurse/Tech; Complete Time: 09: sp3 07/20 09:00 Order name: IV Saline Lock; Complete Time: 09: sp3 07/20 09:00 Order name: Labs collected and sent; Complete Time: : sp3 07/20 09:00 Order name: O2 Per Protocol; Complete Time: : sp3 07/20 09:00 Order name: O2 Sat Monitoring; Complete Time: 09:12 sp3 Administered Medications: 11:52 Drug: Cefepime IVPB 1 grams IVPB at 200 ml/hr once over 30 mins; (mix in NS 100 mL) bp Route: IVPB; Rate: 200 ml/hr; Infused Over: 30 mins; Site: right forearm; 19:18 Follow up: IV Status: Completed infusion dd2 12:31 Drug: Ondansetron IVP 4 mg IVP once; over 2 minutes Route: IVP; Site: right forearm; bp 12:32 Drug: HYDROmorphone IVP 1 mg IVP once Route: IVP; Site: right forearm; bp Disposition Summary: 07/20/24 11:55 Hospitalization Ordered Notes: Hospitalization Status: Inpatient Admission sp3 Provider: Edwin Guerrero sp3 Condition: Stable sp3 Problem: an acute exacerbation sp3 Symptoms: have worsened sp3 Bed/Room Type: Standard 3 Location: Intensive Care Unit(07/20/24 19:15) dw Room Assignment: 4-(07/20/24 19:15) dw Diagnosis - Pneumonia, coagulopathy, abdominal wall hematoma sp3 Forms: - Medication Reconciliation Form sp3 - SBAR form sp3 - Leadership Thank You Letter sp3 Signatures: Dispatcher [employer] Karly Michel RN RN dw Baxter, Heather, RN RN hb Peltier, Brian, RN RN bp Patel, Setul, MD MD sp3 KARLY BURR RN dd2 Corrections: (The following items were deleted from the chart) 09: 09:00 BASIC METABOLIC PANEL+C.LAB.BRZ ordered. EDAR EDAR 09 09:00 CBC+H.LAB.BRZ ordered. EDAR EDMS 09: 09:00 HEPATIC FUNCTION+C.LAB.BRZ ordered. EDMS EDMS 09: 09:00 MAGNESIUM+C.LAB.BRZ ordered. EDMS EDMS 09: 09:00 PROBNP+C.LAB.BRZ ordered. EDMS EDMS 09: 09:00 PROTIME (+INR)+COAG.LAB.BRZ ordered. EDMS EDMS 09: 09:00 Troponin High Sensitivity+C.LAB.BRZ ordered. EDMS EDMS 09: 09:00 LIPASE+C.LAB.BRZ ordered. EDMS EDMS 09: 09:01 Chest For PE Angio+CT.RAD.BRZ ordered. EDMS EDMS : 09:01 Abdomen Pelvis W Con+CT.RAD.BRZ ordered. EDMS EDMS 09: 09:00 Home Meds: HOME O2 - 3LNC; hb hb 16:29 11:55 Telemetry/MedSurg (Inpatient) sp3 bp 16:29 11:55 sp3 bp 19:15 16:29 [facility] ER HOLD bp dw 19:15 16:29 ERHOLD- bp dw
--- NOTE | 2024-07-20 11:56 | ER ---
Nurse's Notes [facility] Name: Bharat Bauman Age: 84 yrs Sex: Male : 1940 Arrival Date: 07/20/2024 Time: 08:27 Bed 6 Private MD: Diagnosis: Pneumonia, coagulopathy, abdominal wall hematoma Presentation: 07/20 08:57 Chief complaint: Coughing up blood clots x 2 days, felt pop in LLQ while coughing this hb morning, now c/o LLQ pain 10/10. Coronavirus screen: At this time, the client does not indicate any symptoms associated with coronavirus-19. Ebola Screen: No symptoms or risks identified at this time. Initial Sepsis Screen: Does the patient meet any 2 criteria? No. Patient's initial sepsis screen is negative. Does the patient have a suspected source of infection? No. Patient's initial sepsis screen is negative. Risk Assessment: Do you want to hurt yourself or someone else? Patient reports no desire to harm self or others. Onset of symptoms was July 19, 2024. 08:57 Method Of Arrival: Wheelchair 08:57 Acuity: MELANIE 3 hb Triage Assessment: 09:00 General: Appears in no apparent distress. uncomfortable, Behavior is calm, cooperative, bp appropriate for age. Pain: Complains of pain in generalized. EENT: No deficits noted. Neuro: No deficits noted. Cardiovascular: Rhythm is sinus rhythm. Respiratory: Reports cough that is Onset: The symptoms/episode began/occurred yesterday, the patient has mild shortness of breath. GI: No signs and/or symptoms were reported involving the gastrointestinal system. : No signs and/or symptoms were reported regarding the genitourinary system. Derm: No deficits noted. Musculoskeletal: No deficits noted. Historical: - Allergies: 09:00 Morphine; hb - PMHx: 09:00 Atrial Fib; COPD; CVA; Hypertension; Pacemaker; hb 09:00 3LNC Home O2; hb - PSHx: 09:00 back surgery; cataracts; Cholecystectomy; inguinal hernia; Skin cancer removal; hb umbilical hernia repair x 2; mitral valve repair; - Immunization history:: Adult Immunizations up to date. - Infectious Disease History:: Denies. - Social history:: Smoking status: Patient denies any tobacco usage or history of. Screenin:14 [facility] ED Fall Risk Assessment (Adult) History of falling in the last 3 months, iw including since admission No falls in past 3 months (0 pts) Confusion or Disorientation No (0 pts) Intoxicated or Sedated No (0 pts) Impaired Gait Yes (1 pt) Mobility Assist Device Used Yes (1 pt) Altered Elimination No (0 pt) Score/Fall Risk Level 0 - 2 = Low Risk Oriented to surroundings, Maintained a safe environment. Abuse screen: Denies threats or abuse. Denies injuries from another. Nutritional screening: No deficits noted. Tuberculosis screening: No symptoms or risk factors identified. Assessment: 09:11 General: Appears in no apparent distress. Behavior is calm, cooperative. Pain:. Neuro: iw Level of Consciousness is awake, alert, obeys commands, Oriented to person, place, time. Cardiovascular: Rhythm is regular. Respiratory: Respiratory effort is even, labored. 10:25 Reassessment: Patient appears in no apparent distress at this time. pt returned from CT iw , placed back on monitor , at bedside. 11:56 Reassessment: Patient appears in no apparent distress at this time. Patient is alert, bp oriented x 3, equal unlabored respirations, skin warm/dry/pink. 13:18 Reassessment: No changes from previously documented assessment. Patient is alert, bp oriented x 3, equal unlabored respirations, skin warm/dry/pink. Respiratory: Airway is patent Breath sounds are coarse bilaterally. Vital Signs: 08:57 BP 119 / 77; Pulse 100; Resp 24; Temp 98.5; Pulse Ox 93% on 3 lpm NC; Pain 10/10; hb 11:59 BP 118 / 72; Pulse 79; Resp 16; Pulse Ox 100% ; bp 13:18 BP 99 / 62; Pulse 98; Resp 16; Pulse Ox 99% ; bp 19:18 BP 113 / 70; Pulse 95; Resp 16; Pulse Ox 100% on NC; dd2 08:57 Pain Scale: Adult hb ED Course: 08:32 Patient arrived in ED. sj2 08:48 Caitlin Alexander MD is Attending Physician. sp3 08:52 Douglas Cleaning, RN is Primary Nurse. bp 09:00 Triage completed. hb 09:00 Arm band placed on. hb 09:12 Initial lab(s) drawn, by me, sent to lab. EKG done, by ED staff, reviewed by Caitlin Alexander MD. Inserted saline lock: 20 gauge in right antecubital area, using aseptic technique. Blood collected. Flushed with 10 mL NS. 10:17 CT Chest For PE Angio In Process Unspecified. EDMS 10:18 CT Abd/Pelvis - IV Contrast Only In Process Unspecified. EDMS 11:55 Ewdin Guerrero MD is Hospitalizing Provider. sp3 13:18 Patient has correct armband on for positive identification. bp 16:35 No provider procedures requiring assistance completed. Patient admitted, IV remains in bp place. 19:30 Provided Education on: ADMISSION EDUCATION . dd2 Administered Medications: 11:52 Drug: Cefepime IVPB 1 grams IVPB at 200 ml/hr once over 30 mins; (mix in NS 100 mL) bp Route: IVPB; Rate: 200 ml/hr; Infused Over: 30 mins; Site: right forearm; 19:18 Follow up: IV Status: Completed infusion dd2 12:31 Drug: Ondansetron IVP 4 mg IVP once; over 2 minutes Route: IVP; Site: right forearm; bp 12:32 Drug: HYDROmorphone IVP 1 mg IVP once Route: IVP; Site: right forearm; bp Medication: 09:14 VIS not applicable for this client. iw Outcome: 11:55 Decision to Hospitalize by Provider. sp3 16:35 Admitted to ER Hold. Please see [facility] for further documentation. bp 16:35 Condition: stable 16:35 Instructed on the need for admit, 20:18 Patient left the ED. bm8 Signatures: Dispatcher [employer] EDMS Rubi Marte RN RN Hailey Doe RN RN hb Peltier, Brian, RN RN bp Patel, Setul, MD MD sp3 Ryan Ortega RN RN bm8 MANI BURR RN RN dd2 Deidre Simms 2 Corrections: (The following items were deleted from the chart) 09:01 09:00 Home Meds: HOME O2 - 3LNC; hb hb
[2024-07-20] MEDS ORDERED: HYDROMORPHONE HCL 1 MG/ML INJ ONE (12:27)
[2024-07-20] MEDS ORDERED: ONDANSETRON 4 MG/2 ML VIAL ONE (12:27)
--- NOTE | 2024-07-20 15:45 | P.HP ---
Certification for Inpatient Patient admitted to: Inpatient With expected LOS: >2 Midnights Practitioner: I am a practitioner with admitting privileges, knowledge of patient current condition, hospital course, and medical plan of care. Services: Services provided to patient in accordance with Admission requirements found in Title 42 Section 412.3 of the Code of Federal Regulations Patient History Date of Service: 07/20/24 Reason for admission: Hematoma, hemoptysis, pneumonia History of Present Illness: 84yo M, PMH: A-fib on warfarin, CVA, mitral valve repair, COPD, hypertension. Presents to the ED with left lower quadrant abdominal pain and coughing fits. Patient recently discharged from this hospital 2 weeks ago after 23 hospitalization for pneumonia and hemoptysis. He reports he had some slight continued improvement at home, hemoptysis resolved several days ago, until the last 2 days or so. He started coughing more frequently unfortunately, he felt a pop in his left lower quadrant and started to have pain last night which progressively worsened which prompted him to come to the ER today. In the ER, CT imaging noted a left rectus muscle hematoma measuring 5.9 x 4 x 11 cm. Also noted progressive wall thickening along the bronchial branches to the basal left lower lobe, progressive interstitial thickening with opacification and air- fluid levels within the left lower lobe basal bullae. Radiologist reported this finding could relate to progressive alveolar hemorrhage or bronchopneumonia. ER physician consulted and reviewed the case with both pulmonology and general surgery who felt the patient was stable and to be managed here. At the time of my evaluation this afternoon patient reported having improvement of his pain after receiving IV Dilaudid, he reported some mild shortness of breath, denied any chest pain, denied any nausea/vomiting, no diarrhea. He denied having any fevers or chills recently. He denies any trauma. He reports he has been taking his medications as prescribed recent discharge with no changes. He reportedly had his INR checked yesterday which he was called last night and told that it was 2.1 Allergies morphine Adverse Reaction (Severe, Verified 09/18/22 04:51) AMS Home Medications: Montelukast [Singulair*] 10 mg PO BEDTIME 10/18/18 Albuterol Inhaler [Ventolin Inhaler*] 2 puff IH Q6H PRN 02/25/22 Ascorbic Acid [Vitamin C] 1,000 mg PO DAILY 02/25/22 Cholecalciferol (Vitamin D3) [Vitamin D 1000 Iu Tab*] 125 mcg PO DAILY 02/25/22 Cyanocobalamin [Vitamin B-12*] 1,000 mcg PO DAILY 02/25/22 Zinc Gluconate [Zinc] 100 mg PO DAILY 02/25/22 Fluticasone/Umeclidin/Vilanter [Trelegy Ellipta 100-62.5-25] 1 puff IH DAILY 09/18/22 predniSONE [Deltasone*] 10 mg PO DAILY 03/25/24 Loteprednol Etabonate [Inveltys] 1 gtt OP BID 07/02/24 Amox/Clavulanate [Augmentin 875-125 Tab*] 875 mg PO BIDWM 10 Days #20 tab 07/03/24 Warfarin Sodium [Jantoven] 2.5 mg PO BEDTIME 30 Days #15 tab 07/03/24 predniSONE [Prednisone*] 20 mg PO BID 5 Days #10 tab 07/03/24 - Past Medical/Surgical History Diabetic: No -: Stroke 2017 -: COPD-emphysema, 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 - Family History Brother -: Hypertension Sister -: Lung disease Mother -: Heart disease - Social History Alcohol use: No CD- Drugs: No Caffeine use: No Place of Residence: Home Review of Systems 10-point ROS is otherwise unremarkable Physical Examination - Physical Exam General: Alert, In no apparent distress, Oriented x3 HEENT: Other (swelling around eyes), EOMI, Sclerae nonicteric Neck: Supple, No LAD Respiratory: Diminished, Crackles/rales Cardiovascular: Regular rate/rhythm, Edema (1+ in LLE, trace RLE) Gastrointestinal: Soft and benign, Non-distended, Tenderness (LLQ/Suprapubic) Musculoskeletal: No contractures, No tenderness Integumentary: No rashes, No ulcers Neurological: Normal speech, Normal affect - Studies Laboratory Data (last 24 hrs) 07/20/24 07/20/24 07/20/24 09:10 09:10 09:10 WBC 10.70 Hgb 12.9 L Hct 39.2 L Plt Count 201 PT 59.8 H INR 5.70 Sodium 142 Potassium 4.4 BUN 18 Creatinine 1.24 Glucose 118 H Magnesium 2.0 Total Bilirubin 0.6 AST 16 ALT 31 Alkaline Phosphatase 51 Lipase 42 Assessment and Plan - Advance Directives Does patient have a Living Will: Yes Does patient have a Durable POA for Healthcare: Yes Physician Review Additional Text: Problem List Pneumonia with hemoptysis COPD / Emphysema with bullae, on 3L home O2 supratherapeutic INR on warfarin acute Left rectus muscle hematoma Afib, paroxysmal h/o CVA when coumadin held Mitral valve repair (2001) Pneumonia with hemoptysis COPD / Emphysema with bullae, on 3L home O2 supratherapeutic INR on warfarin pulm consulted in ED cefepime/vanc, recently completed Augmentin at home Dr. Valle recommends 5mg IV Vit K now admit to ICU for close monitoring check h/h overnight and in AM pt reports BP typically runs low pain control oxygen as needed confirm home meds and restart as appropriate acute Left rectus muscle hematoma Dr. Hernandez consulted, evaluated patient no surgical intervention at this time, holding coumadin, monitor closely Afib, paroxysmal h/o CVA when coumadin held Mitral valve repair (2001) as noted above regarding coumadin confirm home med / dosing for afib Patient mentioned nebivolol VTE: supratherapeutic inr Code: full - confirmed with patient and family at bedside Dispo: admit to ICU anticipate hospitalization > 4 days. Time Spent Managing Pts Care (In Minutes): 75
[2024-07-20] MEDS ORDERED: ONDANSETRON 4 MG/2 ML VIAL IV PRN (15:46)
[2024-07-20] MEDS: VITAMIN K (ADULT) 10 MG/ML IVP ONE (16:03)
[2024-07-20] MEDS ORDERED: HYDROMORPHONE HCL 1 MG/ML INJ IV PRN (16:03)
[2024-07-20] MEDS ORDERED: VITAMIN K (ADULT) 10 MG/ML ONE (16:57)
[2024-07-20] MEDS: VANCOMYCIN 1.75 GM in NA CHLORIDE 0.9% 500 ML IVPB ONE (17:00)
[2024-07-20] MEDS ORDERED: VANCOMYCIN 1 GM/VIAL ONE (17:10)
[2024-07-20] MEDS ORDERED: NA CHLORIDE 0.9% 500 ML ONE (17:10)
[2024-07-20 19:56] LABS: Hematocrit 36.1 % (39.6-49.0); Hemoglobin 11.7 g/dL (13.6-17.9); MCH 29.5 pg (27.0-35.0); MCHC 32.4 g/dL (32.0-36.0); MCV 91.2 fL (80-100); MPV 8.4 fL (7.6-11.3); Platelets 174 thou/uL (152-406); RBC Red Blood Cell Count 3.96 M/uL (4.33-5.43); Red Cell Distribution Width 15.9 % (12.1-15.2)
[2024-07-20] MEDS ORDERED: VANCOMYCIN 1.75 GM in NA CHLORIDE 0.9% 500 ML IVPB SCH (21:00)
[2024-07-21 05:21] LABS: Absolute Basophils 0.1 K/uL (0-0.5); Absolute Eosinophils 0.1 K/uL (0-0.5); Absolute Lymphocytes (CBC) 1.5 K/uL (0.7-4.9); Absolute Monocytes 0.9 K/uL (0.1-1.3); Absolute Neutrophil 8.4 K/uL (1.8-8.0); Basophils % 0.6 % (0-1.3); Eosinophils % 1.3 % (0-4.4); Hematocrit 32.7 % (39.6-49.0); Lymphocytes % 13.4 % (15.3-44.8); MCH 30.2 pg (27.0-35.0); MCHC 33.5 g/dL (32.0-36.0); MPV 8.4 fL (7.6-11.3); Monocytes % 7.9 % (3.3-12.3); Neutrophils % 76.8 % (41.7-73.7); Nucleated Red Blood Cells % 0.1 % (0-0); Platelets 146 thou/uL (152-406); RBC Red Blood Cell Count 3.63 M/uL (4.33-5.43); Red Cell Distribution Width 15.2 % (12.1-15.2)
[2024-07-21 05:30] LABS: PT Prothrombin Time 15.5 SECONDS (10-13.0); Protime INR 1.38
[2024-07-21 05:42] LABS: Albumin 2.6 g/dL (3.4-5.0); Anion Gap 8.5 mEq/L (5.0-15.0); Globulin 2.7 g/dL (2.3-3.5); Potassium 4.5 mEq/L (3.5-5.1); Protein, Total 5.3 g/dL (6.4-8.2)
[2024-07-21] MEDS: HYDROCODONE/APAP 5/325 MG TAB PO PRN (07:03)
[2024-07-21] MEDS: CEFEPIME 1 GM in NA CHLORIDE 0.9% 100 ML IV SCH (08:02)
[2024-07-21] MEDS: NEBIVOLOL HCL 5 MG TAB PO SCH (08:02)
[2024-07-21] MEDS: NA CHLORIDE 0.9% 500 ML IV ONE (08:26)
--- NOTE | 2024-07-21 08:44 | RAD REPORT ---
EXAM: Chest Single View HISTORY: 84 years Male f/u b/l opacities COMPARISON: Yesterday's chest CT, prior chest radiograph 07/01/2024 FINDINGS: LUNGS/PLEURA: Partially consolidative airspace disease at the left lung base similar to yesterday's c hest CT. Pronounced emphysematous changes in the left upper lung, corresponding to the superior segment of the left lower lobe on CT. CARDIAC/MEDIASTINUM: Stable enlargement. UPPER ABDOMEN: No significant abnormality. BONES: Sternotomy. No acute abnormality. LINES/TUBES/OTHER: Pacemaker present. IMPRESSION: Moderate airspace disease at the left lung base similar to yesterday's chest CT. This is concerning f or pneumonia.
--- NOTE | 2024-07-21 08:46 | P.PN ---
Date of Service: 07/21/24 Subjective: Abdominal pain improving, breathing feels easier today denies any new / worsening problems no further hemoptysis overnight/this morning has been on chronic steroids for at least a few months per patient afebirle Physical Exam: GEN: Alert, oriented, NAD CV: Regular rate and rhythm, 1+ in LLE, trace RLE Pulm: Nonlabored respirations on 2.5L NC, Diminished, Crackles/rales ABD: soft, LLQ/Suprapubic tenderness Neuro: Normal speech, normal affect Problem List Pneumonia with hemoptysis COPD / Emphysema with bullae, on 3L home O2 supratherapeutic INR on warfarin Borderline hypotension ?Adrenal insufficiency Acute Left rectus muscle hematoma Afib, paroxysmal h/o CVA when coumadin held Mitral valve repair (2001) Pneumonia with hemoptysis COPD / Emphysema with bullae, on 3L home O2 supratherapeutic INR on warfarin on admission, presents with LLQ pain, hemoptysis, cough. Denied chest pain, n/v/d. No fever/chills. Denies trauma. CTA chest (07/20): Progressive wall thickening along bronchial branches to the basal left lower lobe. Progressive interstitial thickening with opacification and air-fluid levels within the left lower lobe basal bullae. concern for progressive alveolar hemorrhage or bronchopneumonia 07/20 - Dr. Valle, pulm consulted s/p 5mg IV Vit K per pulm recs IV cefepime/vanc (07/20-), recently completed Augmentin at home Admit to ICU for close monitoring 07/21 - Abdominal pain improving, breathing feels easier today. Trend PT/INR INR 5.7 -> 1.38; start dvt prophylaxis, trend h/h, if stable, start anticoagulation tomorrow possibly, if no bronch needed Wean oxygen as tolerated. Borderline hypotension ?Adrenal insufficiency 07/20 - BP low to low-normal this hospitalization. pt reports BP typically runs low but not to this degree 07/21 - On chronic steroids at home; low BP possibly related to adrenal insufficiency Start IV hydrocortisone 50 mg BID for possible adrenal insufficiency Acute Left rectus muscle hematoma CT abdomen/pelvis (07/20): Bulky swelling of the left rectus muscle most prominent inferiorly, measuring up to 5.9 x 4.0 x 11.2 cm, suggestive of hematoma Dr. Hernandez consulted, evaluated patient no surgical intervention at this time. holding coumadin, monitor closely Monitor H&H, slight drop 07/21 Afib, paroxysmal h/o CVA when coumadin held Mitral valve repair (2001) as noted above regarding coumadin confirm home med / dosing for afib Patient mentioned nebivolol - held secondary to soft BP VTE: heparin SQ Code: Full Dispo: continue ICU level of care anticipate hospitalization > 2days. Time Spent Managing Pts Care (In Minutes): 55
--- NOTE | 2024-07-21 11:28 | P.CNS ---
Date of Consult: 07/20/24 Reason for Consult: Pneumonia and hemoptysis Chief Complaint: Hematoma, hemoptysis, pneumonia History of Present Illness: Age 84 Hx of COPD was recently admitted for hemoptysis. Reoccured again No fever or chills On Warfaring. No chest pain 4yo M, PMH: A-fib on warfarin, CVA, mitral valve repair, COPD, hypertension. Ct scan LLL pneumonia with LISY bullous changes Allergies morphine Adverse Reaction (Severe, Verified 09/18/22 04:51) AMS Home Medications: Montelukast [Singulair*] 10 mg PO BEDTIME 10/18/18 Albuterol Inhaler [Ventolin Inhaler*] 2 puff IH Q6H PRN 02/25/22 Ascorbic Acid [Vitamin C] 1,000 mg PO DAILY 02/25/22 Cholecalciferol (Vitamin D3) [Vitamin D 1000 Iu Tab*] 125 mcg PO DAILY 02/25/22 Cyanocobalamin [Vitamin B-12*] 1,000 mcg PO DAILY 02/25/22 Zinc Gluconate [Zinc] 100 mg PO DAILY 02/25/22 Fluticasone/Umeclidin/Vilanter [Trelegy Ellipta 100-62.5-25] 1 puff IH DAILY 09/18/22 predniSONE [Deltasone*] 10 mg PO DAILY 03/25/24 Loteprednol Etabonate [Inveltys] 1 gtt OP BID 07/02/24 Amox/Clavulanate [Augmentin 875-125 Tab*] 875 mg PO BIDWM 10 Days #20 tab 07/03/24 predniSONE [Prednisone*] 20 mg PO BID 5 Days #10 tab 07/03/24 - Past Medical/Surgical History Diabetic: No -: Stroke 2018 -: COPD-emphysema, 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 - Family History Brother Medical History: Hypertension Sister Medical History: Lung disease Mother Medical History: Heart disease - Social History Smoking Status: Former smoker Alcohol use: No CD- Drugs: No Caffeine use: No Place of Residence: Home Review of Systems 10-point ROS is otherwise unremarkable General: Weakness Respiratory: Cough, Hemoptysis Physical Examination Temp Pulse Resp BP Pulse Ox 98.5 F 90 16 88/49 L 98 07/21/24 07:00 07/21/24 08:00 07/21/24 08:03 07/21/24 08:00 07/21/24 08:03 General: Alert, Oriented x3 HEENT: Atraumatic Neck: Supple Respiratory: Crackles/rales (LLL) Cardiovascular: No edema, Regular rate/rhythm Gastrointestinal: Normal bowel sounds, Soft and benign Musculoskeletal: No clubbing, No swelling - Problems (1) Pneumonia Current Visit: No Status: Acute Plan: Age 84 AW LLL pneumonia and hemoptysis. INR elevated 5.9 Admit warfarin contrau=indicated for now. Recurrent hemoptysis/ Monitor HH . PT to dw cardilogy about anticoagulation/ Sputum cultures. Poss bronch Qualifiers: Pneumonia type: due to unspecified organism Laterality: left Lung location: unspecified part of lung Qualified Code(s): J18.9 - Pneumonia, unspecified organism
[2024-07-21] MEDS: HYDROCORTISONE SUC 100 MG INJ IV SCH (12:00)
--- NOTE | 2024-07-21 12:14 | P.PN ---
Subjective Date of Service: 07/21/24 Chief Complaint: Hematoma, hemoptysis, pneumonia Subjective: Improving (Pain is minimally improved no other acute findings today. By the patient's report) Physical Examination - Vital Signs Temperature: 98.5 F Blood Pressure: 88/49 Pulse: 90 Respirations: 16 Pulse Ox (%): 98 - Physical Exam General: Alert, In no apparent distress, Oriented x3, Cooperative Cardiovascular: Regular rate/rhythm Gastrointestinal: Other (Soft mild left lower quadrant tenderness to palpation minimally improved from previous exam, other abdominal findings similar to previous exam, no acute abdominal findings at this time.) Assessment And Plan - Plan Patient is an 84-year-old man who comes in with multiple medical issues as described. He has a hematoma in the left lower quadrant. -Continue medical management for all other medical comorbid conditions. -Patient's INR is now 1.5, recommend transition/consideration for bridge treatment with Lovenox to get patient back to his therapeutic range of anticoagulation. -Serial abdominal exams. -No surgical intervention at this time based on clinical exam and findings. -Hemoglobin was stable for the most part without significant change other than dilutional effect, continue monitoring hemoglobin. -Respiratory issues per Dr. Gonzalez's recommendations. -I will following with you.
[2024-07-21] MEDS: HEPARIN 5000 UNIT/ML 1 ML VIAL SQ SCH (16:27)
[2024-07-21] MEDS: VANCOMYCIN 1.25 GM in NA CHLORIDE 0.9% 250 ML IVPB SCH (16:27)
--- NOTE | 2024-07-21 16:41 | CON ---
Date of Consultation: 07/20/2024 Brief History Of Present Illness: The patient is an 84-year-old man with a past medical history of a trial fibrillation, on Coumadin for over 20 years due to a mitral valve repair. He also has a histor y of CVA, when he was off his anticoagulation for another procedure, COPD, hypertension. He presente d to the emergency room with left lower quadrant abdominal pain after coughing fits. He has had a he rnia repair in the left inguinal region before in the past, possibly femoral hernia and had an abdomi nal periumbilical hernia repair before in the past. He believes that metal screws were placed at [facility] t time and he had some coughing fits recently. He believes that this maybe related. He also brought some blood up with his coughing he states, it was scant, minimal amounts. 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 He has been seen by Dr. Gonzalez for this by his report. He is due to h ave a bronchoscopy at some point, but he is unaware of the timing of this at this point as well. He noted that after an episode of coughing, he had significant pain in the left lower quadrant, but he s tates that he has had some abdominal pain in the periumbilical region for quite a bit of time that oc curred shortly after the surgery for repair and he notes that his umbilicus never returned to normal after that procedure initially. He continues to have pain in the left lower quadrant with some radia tion in the left lower quadrant and up to the abdominal wall on the left side. His Coumadin and INR were noted to be supratherapeutic. He is uncertain of why. He states that he does follow up [facility] and usually has pretty good control of this on the majority of occasions. Past Medical History: Atrial fibrillation, CVA, COPD, hypertension, bulla of lung, umbilical hernia, left femoral hernia, CVA was in 2018. He has emphysema and he takes home oxygen. He is maintained on home oxygen. He has a hiatal hernia. He has some decreased hearing. He has had a history of ski n cancer. He has had a history of cardioversion in 2012. He has had a cardiac ablation on multiple occasions in 2013 and 2017. Past Surgical History: Includes mitral valve repair approximately 20 years ago, CABG with pacemaker placement. He believes pacemaker was originally placed in 2009. He has had hernia surgery in 1993 a nd 2014, perhaps in 2022 as well. He has had back, disk surgery, tonsillectomy, left cataract lens r eplacement, hiatal hernia repair in 2018. Family History: Hypertension in his brother, lung disease in the sister, heart disease in his mother . He denies smoking, alcohol, recreational drug use. Review of Systems: 10-point review of systems other than HPI, denies. Allergies: MORPHINE. Home Medications: Include Singulair, albuterol, vitamin C, , vitamin B12, zinc, Trelegy, D eltasone, loteprednol, Augmentin intermittently, prednisone 20 mg p.o. b.i.d. 5 days on . He lives at home. Physical Examination: General: He is awake, alert, oriented. Psychiatric: He is appropriate, conversive. HEENT: He is normocephalic. He does have some swelling around bilateral eyes with some tearing of t he left eye. His sclerae are somewhat injected, but minimally. Oropharynx is clear. Neck: Supple without JVD. Chest: Has normal expansion and excursion. Cardiovascular: Regular rate, regular rhythm at this time. Pulmonary: Decreased with some rales, particularly left greater than right. Abdomen: Soft with left lower quadrant tenderness extending from the inguinal crease area up toward the umbilicus with some Y type orientation toward the flank as well. There was no obvious discolorat ion or bruising to this area. I am uncertain if he has an umbilical hernia as I can feel what feels like the edge of a mesh in his umbilicus and it is not inverted. His umbilicus is essentially flat. Extremities: No clubbing, cyanosis, edema. Skin: Warm and dry. Laboratory Data: Revealed a white blood cell count of 10.7, hemoglobin 12.9, hematocrit 39.2, platel et count was 201. His PT was 59.8, INR was 5.7. Sodium 142, potassium 4.4, chloride 104, carbon landry xide 33, BUN 18, creatinine 1.24, glucose is 118, calcium 9.2, magnesium 2.0, total bilirubin 0.6, di rect component 0.2, indirect was 0.4, AST 16, ALT 31, alkaline phosphatase is 51, lipase is 42. He h ad imaging performed, which included a CT angiogram of the chest for hemoptysis, officially read as v isualized thyroid gland is normal. Right epicardial 5.1 x 3.4 cm fat containing mass is stable with marginal foci of calcification could reflect sequela fat necrosis versus hamartoma sequela. Median s ternotomy and mitral valve replacement again seen. Left chest wall pacer in place. No mediastinal, hilar, or axillary lymphadenopathy. Heart is unremarkable. Progressive wall thickening along bronch ial branches to the basal left lower lobe, progressive interstitial thickening with opacification, ai r-fluid levels. The left lower lobe basal bullae findings could relate to progressive alveolar hemor rhage or bronchopneumonia. He additionally had a CT abdomen and pelvis, which is officially read as small sliding hiatal hernia, distal colonic diverticulosis without evidence diverticulitis, expansive swelling of left rectus muscle with bulky lower component measuring 5.9 x 4.0, collectively measurin g 11.2 cm in greatest craniocaudal dimension internally shows heterogeneous hyperdensity with some va scular elements along the deep aspect stranding extends along the left inguinal canal. The bulky swe lling of the left rectus muscle most prominently inferiorly measures up to 5.9 x 4.0 x 11.2 cm with s ome heterogeneous hyperdensity suggesting hematoma. Linear hyperdense elements posteriorly could rep resent prominent vascularity or mild extravasation. Assessment And Plan: This is an 84-year-old man, who comes in after a coughing fits with multiple me dical problems as described above. I am consulted to see the patient regarding this rectus hematoma. 1. IV fluid hydration. 2. Correction of his coagulopathy. 3. We need to ensure we do not overcorrect his coagulopathy because by his recollection. The last ti me he had over correction of his coagulopathy/anticoagulation medication. He had a CVA as such. Cor rection of his INR should be done in a slower methodical fashion. 4. Continue serial hemoglobin measurements. 5. Continue serial abdominal exams. 6. Continue medical management as described. 7. I do not have any plans for surgical intervention at this time. As such, the patient should be mo nitored on the monitor bed as well. 8. I will follow along with you. I have explained the risks, benefits, alternatives of the above [place] plan. The patient displayed understanding of the above stated plan, agrees to proceed as indicated. JAMEEL Voice ID: [id number] Report ID: [id number]
[2024-07-21 17:13] VITALS: BMI 23.0
[2024-07-21] MEDS: MONTELUKAST 10 MG TAB PO SCH (20:16)
[2024-07-21] MEDS: LOTEPREDNOL ETABONATE OPTH SCH (21:00)
[2024-07-22 05:58] LABS: Absolute Monocytes 0.6 K/uL (0.1-1.3); Absolute Neutrophil 7.8 K/uL (1.8-8.0); Basophils % 0.2 % (0-1.3); Eosinophils % 0.3 % (0-4.4); Hemoglobin 10.7 g/dL (13.6-17.9); Lymphocytes % 10.3 % (15.3-44.8); MCH 29.9 pg (27.0-35.0); MCHC 33.4 g/dL (32.0-36.0); MCV 89.5 fL (80-100); MPV 8.3 fL (7.6-11.3); Monocytes % 6.7 % (3.3-12.3); Neutrophils % 82.5 % (41.7-73.7); Platelets 147 thou/uL (152-406); RBC Red Blood Cell Count 3.57 M/uL (4.33-5.43); Red Cell Distribution Width 15.3 % (12.1-15.2)
[2024-07-22 05:59] LABS: PT Prothrombin Time 12.2 SECONDS (10-13.0); Protime INR 1.07
[2024-07-22 06:06] LABS: Albumin 2.5 g/dL (3.4-5.0); Albumin/Globulin Ratio 0.9 (1.1-1.8); Anion Gap 6.1 mEq/L (5.0-15.0); Bilirubin Total 0.7 mg/dL (0.2-1.0); Globulin 2.9 g/dL (2.3-3.5); Magnesium 2.2 mg/dL (1.6-2.4); Potassium 4.1 mEq/L (3.5-5.1); Protein, Total 5.4 g/dL (6.4-8.2)
[2024-07-22] MEDS: VITAMIN D 5,000 UNIT CAP PO SCH (08:42)
[2024-07-22] MEDS: Fluticasone/Umeclidin/Vilanter (Trelegy Ellipta) 100-62.5-25 Blst.W.Dev IH SCH (08:43)
--- NOTE | 2024-07-22 09:56 | P.CNS ---
Date of Consult: 07/22/24 Chief Complaint: Hematoma, hemoptysis, pneumonia History of Present Illness: Patient with PMH of atrial fibrillation, mitral valve repair presented with abdominal muscle hematoma and coughing up blood tinged sputum, cardiology were consulted for anticoagulation management, denies having any cardiac symptoms. Allergies morphine Adverse Reaction (Severe, Verified 09/18/22 04:51) AMS Home medications list reviewed: Yes Home Medications: Montelukast [Singulair*] 10 mg PO BEDTIME 10/18/18 Ascorbic Acid [Vitamin C] 1,000 mg PO DAILY 02/25/22 Cholecalciferol (Vitamin D3) [Vitamin D 1000 Iu Tab*] 125 mcg PO DAILY 02/25/22 Cyanocobalamin [Vitamin B-12*] 1,000 mcg PO DAILY 02/25/22 Zinc Gluconate [Zinc] 100 mg PO DAILY 02/25/22 Fluticasone/Umeclidin/Vilanter [Trelegy Ellipta 100-62.5-25] 1 puff IH DAILY 09/18/22 predniSONE [Deltasone*] 10 mg PO DAILY 03/25/24 Loteprednol Etabonate [Inveltys] 1 gtt OP BID 07/02/24 Amox/Clavulanate [Augmentin 875-125 Tab*] 875 mg PO BIDWM 10 Days #20 tab 06/22 06/18 Magnesium Oxide 500 mg PO DAILY 07/21/24 Nebivolol HCl [Bystolic] 5 mg PO DAILY 07/21/24 - Past Medical/Surgical History Diabetic: No -: Stroke 2018 -: COPD-emphysema, 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 - Family History Brother Medical History: Hypertension Sister Medical History: Lung disease Mother Medical History: Heart disease - Social History Smoking Status: Former smoker Alcohol use: No CD- Drugs: No Caffeine use: No Place of Residence: Home Review of Systems 10-point ROS is otherwise unremarkable Physical Examination Temp Pulse Resp BP Pulse Ox 96.9 F 76 16 116/92 H 96 07/22/24 08:00 07/22/24 09:00 07/22/24 09:00 07/22/24 09:00 07/22/24 09:00 General: Alert, In no apparent distress HEENT: Atraumatic, PERRLA, Mucous membr. moist/pink, EOMI, Sclerae nonicteric Neck: Supple, 2+ carotid pulse no bruit, No LAD, Without JVD or thyroid abnormality Respiratory: Clear to auscultation bilaterally, Normal air movement Cardiovascular: Regular rate/rhythm, Normal S1 S2 Gastrointestinal: Normal bowel sounds, No tenderness Musculoskeletal: No tenderness Integumentary: No rashes Neurological: Normal gait, Normal speech, Normal tone, Normal affect Lymphatics: No axilla or inguinal lymphadenopathy - Problems (1) A-fib Current Visit: No Status: Chronic Plan: patient tele shows that he is currently paced. continue patient home dose Nebivolol patient coumadin can be switched to Eliquis 5 mg po BID on discharge. Cardiology will sign off, please call with any questions. Qualifiers: Atrial fibrillation type: longstanding persistent Qualified Code(s): I48.11 - Longstanding persistent atrial fibrillation
--- NOTE | 2024-07-22 10:31 | P.PN ---
Date of Service: 07/22/24 Subjective: continues with cough associated with blood tinged sputum breathing okay on room air, off oxygen this morning no worsening of LLQ abd pain otherwise doing okay ambulating to C afebrile Physical Exam: GEN: Alert, oriented, NAD CV: Regular rate and rhythm, 1+ in LLE, trace RLE Pulm: Nonlabored respirations on RA at rest, Diminished ABD: soft, LLQ/Suprapubic tenderness Neuro: Normal speech, normal affect Problem List Pneumonia with hemoptysis COPD / Emphysema with bullae, on 3L home O2 supratherapeutic INR on warfarin Borderline hypotension ?Adrenal insufficiency Acute Left rectus muscle hematoma Afib, paroxysmal h/o CVA when coumadin held Mitral valve repair (2001) Pneumonia with hemoptysis COPD / Emphysema with bullae, on 3L home O2 supratherapeutic INR on warfarin on admission, presents with LLQ pain, hemoptysis, cough. Denied chest pain, n/v/d. No fever/chills. Denies trauma. CTA chest (07/20): Progressive wall thickening along bronchial branches to the basal left lower lobe. Progressive interstitial thickening with opacification and air-fluid levels within the left lower lobe basal bullae. concern for progressive alveolar hemorrhage or bronchopneumonia 07/20 - Dr. Valle, pulm consulted s/p 5mg IV Vit K per pulm recs IV cefepime/vanc (07/20-), recently completed Augmentin at home Admit to ICU for close monitoring 07/21 - Abdominal pain improving, breathing feels easier today. Trend PT/INR INR 5.7 -> 1.38; start dvt prophylaxis, trend h/h, if stable, start anticoagulation tomorrow possibly, if no bronch needed 07/22 - continues with cough assocaited with blood tinged sputum. Off oxygen this morning. Dr. Gu recommending switching coumadin to eliquis 5 [address] discharge[address] Dr[address] Valle planning for possible diagnostic bronchoscopy to further eval - possibly tomorrow hold heparin for procedure tomorrow per pulm Borderline hypotension ?Adrenal insufficiency 07/20 - BP low to low-normal this hospitalization. pt reports BP typically runs low but not to this degree 07/21 - On chronic steroids at home; low BP possibly related to adrenal insufficiency Start IV hydrocortisone 50 mg BID for possible adrenal insufficiency 07/22 - BP improved continue IV hydrocortisone. Acute Left rectus muscle hematoma CT abdomen/pelvis (07/20): Bulky swelling of the left rectus muscle most prominent inferiorly, measuring up to 5.9 x 4.0 x 11.2 cm, suggestive of hematoma Dr. Hernandez consulted, evaluated patient no surgical intervention at this time. 07/21 - DVT prophylaxis started with heparin sq per pulm Monitor H&H. Daily labs. 07/22 - hold heparin for procedure tomorrow per pulm Afib, paroxysmal h/o CVA when coumadin held Mitral valve repair (2001) as noted above regarding coumadin / eliquis confirm home med / dosing for afib nebivolol as tolerated - per BP VTE: hold heparin subq Code: Full Dispo: continue ICU level of care anticipate hospitalization > 2days. Pending hemoptysis resolves, possible scope/bronch tomorrow Time Spent Managing Pts Care (In Minutes): 55
--- NOTE | 2024-07-22 11:24 | EKG ---
Test Date: 2024-07-20 Test Time: 09:13:34 [employer]ilient Tile Installer: MADINA MEASUREMENT RESULTS: Intervals: Rate: 91 AK: QRSD: 92 QT: 336 QTc: 413 [place]: P: AK: QRS: 14 T: 230 INTERPRETIVE STATEMENTS: Suspect unspecified pacemaker failure Ventricular-paced rhythm with occasional premature ventricular complexes Abnormal ECG Compared to ECG 07/01/2024 11:44:04 Ventricular premature complex(es) now present AV dual-paced complex(es) or rhythm no longer present Electronically Signed On 07-22-24 11:19:28 CDT by Lan Gu
--- NOTE | 2024-07-22 12:45 | P.PN ---
Subjective Date of Service: 07/22/24 Chief Complaint: Hematoma, hemoptysis, pneumonia No significant change he still has occasional dark red hemoptysis is any chest pain hemodynamically stable Review of Systems General: Weakness Respiratory: Cough, Hemoptysis Physical Examination - Vital Signs Temperature: 97.6 F Blood Pressure: 104/56 Pulse: 76 Respirations: 19 Pulse Ox (%): 94 - Physical Exam General: Alert, Oriented x3 Respiratory: Crackles/rales ( base), Expiratory wheezes Cardiovascular: No edema, Regular rate/rhythm, Normal S1 S2 Assessment And Plan - Current Problems (Diagnosis) (1) Pneumonia Current Visit: No Status: Acute Plan: Patient is a 84 admitted with hemoptysis he does have a left lower lobe infiltrate left upper lobe bullous change is coughing up dark blood slight decline in his hemoglobin I will discuss with the patient will proceed to a diagnostic bronchoscopy tomorrow agrees with the risk which include bleeding I do not intend to do any transbronchial biopsy pressure saturations satisfactory patient is on broad- spectrum antibiotics hold heparin subcu PT is now normal patient got a dose of vitamin K Qualifiers: Pneumonia type: due to unspecified organism Laterality: left Lung location: unspecified part of lung Qualified Code(s): J18.9 - Pneumonia, unspecified organism
[2024-07-22] MEDS: NEBIVOLOL HCL 5 MG TAB PO SCH (17:40)
[2024-07-22] MEDS: CEFEPIME 2 GM in NA CHLORIDE 0.9% 100 ML IV SCH (20:32)
[2024-07-23 06:14] LABS: Absolute Monocytes 0.4 K/uL (0.1-1.3); Absolute Neutrophil 6.8 K/uL (1.8-8.0); Basophils % 0.4 % (0-1.3); Eosinophils % 0.2 % (0-4.4); Hematocrit 32.4 % (39.6-49.0); Lymphocytes % 11.9 % (15.3-44.8); MCH 30.5 pg (27.0-35.0); MCV 89.8 fL (80-100); MPV 8.4 fL (7.6-11.3); Monocytes % 5.3 % (3.3-12.3); Neutrophils % 82.2 % (41.7-73.7); Platelets 148 thou/uL (152-406); RBC Red Blood Cell Count 3.61 M/uL (4.33-5.43); Red Cell Distribution Width 14.8 % (12.1-15.2)
[2024-07-23 06:17] LABS: PT Prothrombin Time 12.4 SECONDS (10-13.0); Protime INR 1.09
[2024-07-23 06:24] LABS: Albumin 2.5 g/dL (3.4-5.0); Albumin/Globulin Ratio 0.8 (1.1-1.8); Anion Gap 6.9 mEq/L (5.0-15.0); Bilirubin Total 0.6 mg/dL (0.2-1.0); Potassium 3.9 mEq/L (3.5-5.1); Protein, Total 5.5 g/dL (6.4-8.2)
[2024-07-23] MEDS: Phenylephrine HCl 10 MG/ML 1 ML VIAL ONE (07:07)
[2024-07-23] MEDS: LIDOCAINE 4% TOP SOLUTION ONE (07:07)
[2024-07-23] MEDS ORDERED: propofoL 200 MG/20 ML VIAL IV ONE (07:10)
[2024-07-23] MEDS ORDERED: LIDOCAINE 1% MPF 5 ML VIAL ONE (07:10)
[2024-07-23] MEDS ORDERED: FENTANYL CITR 100 MCG/2 ML ONE (07:10)
[2024-07-23] MEDS: Ringers Lactate 1,000 ML IV ONE (07:45)
[2024-07-23] MEDS: LIDOCAINE 1% MPF 30 ML VIAL ONE (08:05)
[2024-07-23 09:57] VITALS: TEMP 97.6
[2024-07-23 10:14] VITALS: O2SAT 95
--- NOTE | 2024-07-23 12:26 | P.OP ---
Date of Service: 07/23/24 (Bronchoscopy with left lower lobe bronchioloalveolar lavage) Findings and Operative Technique Patient is 84 years of age admitted with recurrent hemoptysis the left lower lobe infiltrate has the reason for bronchoscopy After obtaining informed consent from the patient he was premedicated by anesthesia Findings normal vocal cords normal trachea normal right and left-sided anatomy did have visible bleeding from the left lower lobe anterior segment was unable to visualize the clear opening of the left upper lobe been displaced by the bullae no endobronchial lesions visible bleeding was cleared with bronchioloalveolar lavage Cussed with cardiology high risk for anticoagulation going to schedule the patient for Watchman procedure no biopsies were obtained
--- NOTE | 2024-07-23 12:31 | P.PN ---
Subjective Date of Service: 07/23/24 Chief Complaint: Hematoma, hemoptysis, pneumonia According to the the patient is doing better able to stay off the oxygen still has occasional hemoptysis Review of Systems General: Weakness Respiratory: Shortness of Breath, Hemoptysis Physical Examination - Vital Signs Temperature: 97.6 F Blood Pressure: 140/114 Pulse: 102 Respirations: 23 Pulse Ox (%): 99 - Physical Exam General: Alert, Oriented x3 Respiratory: Clear to auscultation bilaterally, Diminished Cardiovascular: No edema, Regular rate/rhythm Assessment And Plan - Current Problems (Diagnosis) (1) Hemoptysis Current Visit: No Status: Acute Plan: Patient is 84 years of age admitted with recurrent hemoptysis bronchoscopy today did not show any endobronchial mass there was bleeding from the left lower lobe chest with cut off tender glass Dr. 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
--- NOTE | 2024-07-23 14:13 | P.DS ---
Admission Date: 07/20/24 Discharge Date: 07/23/24 Disposition: ROUTINE DISCHARGE Discharge Condition: FAIR Reason for Admission: Hematoma, hemoptysis, pneumonia Brief History of Present Illness: 84yo M, PMH: A-fib on warfarin, CVA, mitral valve repair, COPD, hypertension presented to the ED with left lower quadrant abdominal pain and coughing fits. Patient recently discharged from this hospital 2 weeks ago after 23 hospitalization for pneumonia and hemoptysis. He reports he had some slight continued improvement at home, hemoptysis resolved several days ago, until the last 2 days or so. He started coughing more frequently unfortunately, he felt a pop in his left lower quadrant and started to have pain last night which progressively worsened which prompted him to come to the ER today. In the ER, CT imaging noted a left rectus muscle hematoma measuring 5.9 x 4 x 11 cm. CTA thorax suggested alveolar hemorrhage versus bronchopneumonia Also noted progressive wall thickening along the bronchial branches to the basal left lower lobe, progressive interstitial thickening with opacification and air- fluid levels within the left lower lobe basal bullae. Radiologist reported this finding could relate to progressive alveolar h emorrhage or bronchopneumonia. ER physician consulted and reviewed the case with both pulmonology and general surgery who felt the patient was stable and to be managed here. At the time of my evaluation this afternoon patient reported having improvement of his pain after receiving IV Dilaudid, he reported some mild shortness of breath, denied any chest pain, denied any nausea/vomiting, no diarrhea. He denied having any fevers or chills recently. He denied any trauma. Patient was hospitalized for further management. Hospital Course: Problem List Pneumonia with hemoptysis COPD / Emphysema with bullae, on 3L home O2 supratherapeutic INR on warfarin Borderline hypotension ?Adrenal insufficiency Acute Left rectus muscle hematoma Afib, paroxysmal h/o CVA when coumadin held Mitral valve repair (2001) Pneumonia with hemoptysis COPD / Emphysema with bullae, on 3L home O2 supratherapeutic INR on warfarin on admission, presents with LLQ pain, hemoptysis, cough. Denied chest pain, n/v/d. No fever/chills. Denies trauma. CTA chest (07/20): Progressive wall thickening along bronchial branches to the basal left lower lobe. Progressive interstitial thickening with opacification and air-fluid levels within the left lower lobe basal bullae. concern for progressive alveolar hemorrhage or bronchopneumonia Dr. Valle evaluated patient, patient given vitamin K for Coumadin reversal INR improved to normal Patient treated with IV antibiotics Cardiology evaluated patient and recommended switching Coumadin to Eliquis. Dr. Valle performed bronchoscopy and noted some blood clots. Dr. Valle recommend watchman's procedure for his A-fib. Patient plans to follow-up with his molding engineer regarding the Watchman procedure. Patient deemed stable for discharge per Dr. Valle. Patient discharged with Augmentin and doxycycline. Acute Left rectus muscle hematoma CT abdomen/pelvis (07/20): Bulky swelling of the left rectus muscle most prominent inferiorly, measuring up to 5.9 x 4.0 x 11.2 cm, suggestive of hematoma Dr. Hernandez evaluated patient and recommended nonsurgical management. Supportive measures. Anticoagulation discontinued for now. Afib, paroxysmal h/o CVA when coumadin held Mitral valve repair (2001) Anticoagulation discontinued for now due to hemoptysis and rectus hematoma Patient will follow with his molding engineer for evaluation for Watchman procedure. Continue with nebivolol. Vital Signs/Physical Exam: Temp Pulse Resp BP Pulse Ox 97.6 F 97 H 25 H 110/56 L 91 07/23/24 12:31 07/23/24 13:00 07/23/24 13:00 07/23/24 13:00 07/23/24 13:00 General: Alert, In no apparent distress, Oriented x3 HEENT: Mucous membr. moist/pink Neck: Supple, JVD not distended Respiratory: Clear to auscultation bilaterally, Normal air movement Cardiovascular: Normal S1 S2, Irregular heart rate/rhythm Gastrointestinal: Soft and benign, Non-distended Integumentary: No cyanosis Neurological: Normal strength at 5/5 x4 extr Laboratory Data at Discharge: WBC 8.30 thou/uL (4.3-10.9) 07/23/24 05:29 Hgb 11.0 g/dL (13.6-17.9) L 07/23/24 05:29 Hct 32.4 % (39.6-49.0) L 07/23/24 05:29 Plt Count 148 thou/uL (152-406) L 07/23/24 05:29 PT 12.4 SECONDS (10-13.0) 07/23/24 05:29 INR 1.09 07/23/24 05:29 Sodium 142 mEq/L (136-145) 07/23/24 05:29 Potassium 3.9 mEq/L (3.5-5.1) 07/23/24 05:29 BUN 18 mg/dL (7-18) 07/23/24 05:29 Creatinine 0.82 mg/dL (0.70-1.30) 07/23/24 05:29 Glucose 148 mg/dL (74-106) H 07/23/24 05:29 Magnesium 2.0 mg/dL (1.6-2.4) 07/23/24 05:29 Total Bilirubin 0.6 mg/dL (0.2-1.0) 07/23/24 05:29 AST 16 U/L (15-37) 07/23/24 05:29 ALT 24 U/L (16-61) 07/23/24 05:29 Alkaline Phosphatase 44 U/L (45-117) L 07/23/24 05:29 Lipase 42 U/L (13-75) 07/20/24 09:10 Home Medications: Montelukast [Singulair*] 10 mg PO BEDTIME 10/18/18 Ascorbic Acid [Vitamin C] 1,000 mg PO DAILY 02/25/22 Cholecalciferol (Vitamin D3) [Vitamin D 1000 Iu Tab*] 125 mcg PO DAILY 02/25/22 Cyanocobalamin [Vitamin B-12*] 1,000 mcg PO DAILY 02/25/22 Zinc Gluconate [Zinc] 100 mg PO DAILY 02/25/22 Fluticasone/Umeclidin/Vilanter [Trelegy Ellipta 100-62.5-25] 1 puff IH DAILY 09/18/22 predniSONE [Deltasone*] 10 mg PO DAILY 03/25/24 Loteprednol Etabonate [Inveltys] 1 gtt OP BID 07/02/24 Magnesium Oxide 500 mg PO DAILY 07/21/24 Nebivolol HCl [Bystolic] 5 mg PO DAILY 07/21/24 Amox/Clavulanate [Augmentin 875-125 Tab*] 875 mg PO BIDWM 7 Days #14 tab 07/23/24 predniSONE [Prednisone*] 20 mg PO BID #14 tab 07/23/24 New Medications: Amox/Clavulanate [Augmentin 875-125 Tab*] 875 mg PO BIDWM 7 Days #14 tab predniSONE [Prednisone*] 20 mg PO BID #14 tab Physician Discharge Instructions: - Boost / Ensure protein shakes 5x per day - stool softners - colace 2x per day - ambulate - continue incentive spirometry - call with any abdominal pain, nausea, bloating, fever, emesis Diet: Soft + Activity: No lifting more than 10 lbs Followup: Byron Hernandez MD [ACTIVE - CAN ADMIT] - Shandra Mercado MD [Primary Care Provider] - Time spent managing pt's care (in minutes): 38
[2024-07-23 17:13] VITALS: BP 140/111
[2024-07-23] MEDS ORDERED: predniSONE 20 MG TAB PO SCH (21:00)
== END 2024-07-23 16:55 | disposition home or self-care (01) | DRG 194 ==
LOC: ER 08:27 → ERHOLD 15:44 → 3RD-ICU 19:45
PROVIDERS: ADMIT Hospitalist; ATTEND Internal Medicine
PROC: 0B9J8ZX Drainage of Left Lower Lung Lobe, Via Natural or Artificial Opening Endoscopic, Diagnostic (ICD-10-PCS; principal; 2024-07-23 07:30)
DX: J18.9 Pneumonia, unspecified organism (principal); E27.40 Unspecified adrenocortical insufficiency; J44.0 Chronic obstructive pulmonary disease with (acute) lower respiratory infection; I48.11 Longstanding persistent atrial fibrillation; R04.2 Hemoptysis; Z99.81 Dependence on supplemental oxygen; I10 Essential (primary) hypertension; I95.9 Hypotension, unspecified; J43.9 Emphysema, unspecified; M79.81 Nontraumatic hematoma of soft tissue; Z79.01 Long term (current) use of anticoagulants; Z86.73 Personal history of transient ischemic attack (TIA), and cerebral infarction without residual deficits; Z95.0 Presence of cardiac pacemaker
CPT/HCPCS: 36415; 71045; 71275; 74177; 80048; 80053; 80076; 82947; 83690; 83735; 83880; 84484; 85025; 85027; 85610; 87015; 87070; 87102; 87116; 87206; 88108; 88305; 93005; 94760; 96365; 96366; 96375; 97116; 97161; 97530; 99285; J0692; J1171; J1644; J1720; J2003; J2371; J2405; J2704; J3010; J3370; J3430; J7040; J7050; J7120; Q9967